=== PATIENT | male | born 1945 | race Caucasian/White ===

== ENCOUNTER 2019-05-29 11:20 | Emergency (ER) | payer OTHER, SELFPAY ==
[2019-05-29 11:28] VITALS: BP 171/95; PULSE 79; RESP 96; TEMP 36.5; O2SAT 96
--- NOTE | 2019-05-29 11:41 | ED.GIBLEED ---
HPI - GI Bleed <SHEKHAR Jimenez - Last Filed: 05/30/19 01:24> General Chief complaint: GI Bleed Stated complaint: dark stools,discomfort Time Seen by Provider: 05/29/19 11:20 Source: patient Mode of arrival: ambulatory Limitations: no limitations History of Present Illness HPI Narrative: This is a pleasant 74-year-old gentleman, previous smoker, presents to ED with chief complain of dark orders to which started last night with bowel movement. He had another dark bowel movement this morning as well. He reports some rectal discomfort, decreased appetite for several days, mild nausea last night. He denies taking anticoagulants, and NSAIDS. He denies history of gastric ulcer, hemorrhoids, liver problem, esophageal varices. He denies abdominal pain, chest pain, increasing short of breath from baseline, dizziness, fever, chills, vomiting. He also reports bilateral lower leg muscle discomfort worse on right side and heel pain. The pain worse when he is resting or sitting on a chair for more than 1 hour or so and improves with walking around. The foot pain is worse in the morning when he starts ambulating. Denies history of plantar fasciitis or heel spurs. He wears a good pair of supportive shoes with inserts. He also reports L index distal finger pain, redness, warmth. He had injured 2 days ago when he was working with a drill and slipped and drilled the ulnar aspect of distal 2nd phalange near the nail. . Related Data Home Medications Medication Instructions Recorded Confirmed Cbd Tincture 1 dose MISCELLANEOUS DIRECTED 05/29/19 05/29/19 albuterol sulfate [Proventil HFA] 1 puff INH Q4HP PRN 05/29/19 05/29/19 epinephrine [EpiPen] 0.3 mg IM PRN PRN 05/29/19 05/29/19 fluticasone propionate [Flonase 2 spray INTRANASAL DAILY PRN 05/29/19 05/29/19 Allergy Relief] tiotropium-olodaterol [Stiolto 2 puff INHALATION DAILY 05/29/19 05/29/19 Respimat] Previous Rx's Medication Instructions Recorded doxycycline hyclate 100 mg PO BID 7 Days #14 tab 05/29/19 Allergies Allergy/AdvReac Type Severity Reaction Status Date / Time venom-wasp protein Allergy Severe LOCAL Unverified 01/29/18 13:07 [WASP VENOM PROTEIN] SWELLING, HIVES chlorpheniramine Allergy Unknown TACHYCARDIA Unverified 01/29/18 13:07 [From TUSSIONEX] ,HYPOTENSIO N hydrocodone [From TUSSIONEX] Allergy Unknown TACHYCARDIA Unverified 01/29/18 13:07 ,HYPOTENSIO N salmeterol [SALMETEROL] AdvReac Intermediate TACHYCARDIA Unverified 01/29/18 13:07 venlafaxine [VENLAFAXINE] AdvReac Intermediate DIZZY, Unverified 01/29/18 13:07 TINNITIS duloxetine [DULOXETINE] AdvReac Mild NAUSEA Unverified 01/29/18 13:07 ibuprofen [IBUPROFEN] AdvReac Mild REBOUND Unverified 01/29/18 13:07 HEADACHES zolpidem [From AMBIEN] AdvReac Unknown I FORGOT Unverified 01/29/18 13:07 WHO I WAS. CAT DANDER Allergy Intermediate SNEEZING, Uncoded 01/29/18 13:07 ITCHY EYES Review of Systems <SHEKHAR Jimenez - Last Filed: 05/30/19 01:24> Review of Systems General: Denies fever, chills, fatigue, malaise, sweats. HEENT: Denies sinus pain, ear pain, sore throat, difficulty swallowing, dizziness. Respiratory: Reports history of COPD, no increasing short of breath. Denies dyspnea, cough, wheezing, hemoptysis, sputum. Cardiovascular: Denies chest pain, palpitations, orthopnea, edema. Gastrointestinal: See HPI : Denies dysuria, frequency, incontinence, hematuria, urinary retention. Musculoskeletal: See HPI Skin: Denies rash, skin lesions, or other. Neurologic: Denies weakness, headache, numbness, change in speech, confusion, seizures, incoordination. Psychiatric: No concerning psychosocial issues. 12-point review of systems is negative except for those stated above. PFSH <SHEKHAR Jimenez - Last Filed: 05/30/19 01:24> Medical History (Updated 05/29/19 @ 13:41 by SHEKHAR Jimenez) COPD (chronic obstructive pulmonary disease) (Acute) History of lung cancer (Chronic) Surgical History (Updated 05/29/19 @ 11:50 by SHEKHAR Jimenez) S/P lobectomy of lung (Resolved) Family History Father Heart disease Hypertension Mental health problem COPD (chronic obstructive pulmonary disease) Mother Hypertension Sister Mental health problem COPD (chronic obstructive pulmonary disease) Social History Smoking Status: Former smoker Family History Father Heart disease Hypertension Mental health problem COPD (chronic obstructive pulmonary disease) Mother Hypertension Sister Mental health problem COPD (chronic obstructive pulmonary disease) Social History Smoking Status: Former smoker Exam <SHEKHAR Jimenez - Last Filed: 05/30/19 01:24> Narrative Exam Narrative: GEN: Alert, oriented x 3, well appearing and nourished, and in no acute distress. Head: Normal cephalic, atraumatic. No scalp or temporal tenderness, palpable mass or rash. EYES: Pupils are equal, round, and reactive to light and accommodation. Extraocular muscles are intact bilaterally. There is no subconjunctival hemorrhage, exudate and sclera non-icteric. ENT: Bilateral auditory canals and tympanic membranes. Hearing grossly intact. Nose without bleeding, purulent discharge, septal hematoma or deviation. R turbinate with erythema and swelling. Facial sinuses nontender to palpate. Mucous membrane moist, no mucosal lesion. Throat without erythema, tonsillar hypertrophy or exudate. Uvula in midline, airway patent. Neck: Trachea in midline. No JVD, non-tender without lymphadenopathy. No masses or thyroid megaly. Supple, non-tender and no meningeal signs. CARDIAC: Normal regular rate and rhythm without murmurs, gallops, or rubs. No chest wall tenderness. No peripheral edema, cyanosis or pallor. Capillary refill is less than 2 seconds. RESPIRATORY: Lungs are cleat to auscultate bilaterally. No cough, wheezes, rales, or rhonchi. No stridor, respiratory distress, increase work of breathing, or accessary muscle used. ABD: Abdomen soft, nontender and non-distended, obese. No guarding or rebound tenderness to palpate. Bowel sounds are normal in all 4 quadrants. There is no palpable masses or organomegaly. EXT: Full painless ROM of all extremities with no loss of sensation, strength, effusion or edema. SKIN: Warm, dry, normal color for patient. No erythema, lesions or rash. BACK: Nontender without deformity or crepitance. No flank tenderness. NEUROLOGICAL: Alert and oriented to place, time and person. Sensation and motor function intact bilaterally. No facial droops, dysphasia. PSYCHIATRIC: Good judgement and reason, without hallucinations, abnormal affect or abnormal behaviors during the examination. Patient is not suicidal. Initial Vital Signs Initial Vital Signs: Vital Signs Temperature 97.7 F 05/29/19 11:28 Pulse Rate 79 05/29/19 11:28 Respiratory Rate 96 H 05/29/19 11:28 Blood Pressure 171/95 H 05/29/19 11:28 Pulse Oximetry 96 05/29/19 11:28 GI Inspection: normal to inspection Palpation: soft, No guarding, No mass, No rigid and No tender Auscultation: normal bowel sounds Rectal Exam: visual inspection normal, normal sphincter tone, prostate normal, No abnormal stool, No fissure, heme negative stool, No hemorrhoids, No laceration, No mass and tenderness Extrem Left upper extremity: hand (index finger) Details: abnormal to inspection, normal capillary refill, tenderness, warmth Location: of the 2nd digit Location: at the distal phalanx, abrasion Location: of the 2nd digit (erythema, warmth, edeam) Location: at the distal phalanx and on the dorsal aspect and other Right lower extremity: normal to inspection, full ROM, lower leg and foot Details: normal to inspection, vascular exam and tendon exam; no tenderness, ROM of toes abnormal and no edema; no edema and joint enlargement noted Left lower extremity: normal to inspection, full ROM, lower leg and foot Details: vascular exam, tendon exam and motor-sensory exam; no tenderness, no unusual warmth and no edema; no edema and joint enlargement noted <Cooper Onofre DO - Last Filed: 05/31/19 06:33> Initial Vital Signs Initial Vital Signs: Vital Signs Temperature 97.7 F 05/29/19 11:28 Pulse Rate 79 05/29/19 11:28 Respiratory Rate 96 H 05/29/19 11:28 Blood Pressure 171/95 H 05/29/19 11:28 Pulse Oximetry 96 05/29/19 11:28 Course <SHEKHAR Jimenez - Last Filed: 05/30/19 01:24> Orders Ordered: Discontinued Medications Sodium Chloride (Normal Saline 0.9%) 1,000 mls @ 150 mls/hr IV CONT REYNALDO Last Admin: 05/29/19 11:51 Dose: 150 mls/hr Vital Signs - 8 hr 05/29/19 11:28 05/29/19 12:38 Temperature 97.7 F Pulse Rate 79 72 Respiratory Rate 96 H 18 Blood Pressure 171/95 H Blood Pressure [Left Arm] 137/91 H Pulse Oximetry 96 97 <Cooper Onofre DO - Last Filed: 05/31/19 06:33> Orders Ordered: Discontinued Medications Sodium Chloride (Normal Saline 0.9%) 1,000 mls @ 150 mls/hr IV CONT REYNALDO Last Admin: 05/29/19 11:51 Dose: 150 mls/hr Vital Signs - 8 hr 05/29/19 11:28 05/29/19 12:38 Temperature 97.7 F Pulse Rate 79 72 Respiratory Rate 96 H 18 Blood Pressure 171/95 H Blood Pressure [Left Arm] 137/91 H Pulse Oximetry 96 97 MDM - GI Bleed <SHEKHAR Jimenez - Last Filed: 05/30/19 01:24> Differential Diagnosis Likely hemorrhoids, gastritis, Upper gastrointestinal hemorrhage, melena, anal fissure and other (Plantar facititis, foot strain, heel spur pain, finger fracture, finger cellulitis, finger foreign body) Medical Records Attestation: I reviewed the patient's medical records. Lab Data Attestation: I reviewed the patient's lab results. Result diagrams: 05/29/19 11:46 05/29/19 11:46 Lab Results 05/29/19 05/29/19 05/29/19 Range/Units 11:46 11:46 11:46 WBC 8.8 (4.5-11.0) X10^3/uL RBC 4.73 (4.5-5.9) X10^6/uL Hgb 15.5 (13.5-17.5) g/dL Hct 44.2 (41-53) % MCV 93.6 (80-100) fL MCH 32.8 (26-34) PG MCHC 35.0 (30-36) % RDW 13.1 (11.6-14.8) % Plt Count 256 (150-400) X10^3/uL Neut % (Auto) 70.9 (50-75) % Lymph % (Auto) 18.1 L (25-40) % Tucker % (Auto) 9.1 (3-14) % Eos % (Auto) 0.8 L (2-4) % Baso % (Auto) 1.1 (0-2) % Neut # (Auto) 6200 (7856-0635) /uL Lymph # (Auto) 1600 (6097-4249) /uL Tucker # (Auto) 800 (0-900) /uL Eos # (Auto) 100 (0-450) /uL Baso # (Auto) 100 (0-100) /uL PT 12.1 (10.1-12.7) SECONDS INR 1.1 (0.9-1.3) APTT 34 (26.4-36.2) SECONDS Sodium 138 (137-145) mmol/L Potassium 4.6 (3.4-5.1) mmol/L Chloride 104 (98-107) mmol/L Carbon Dioxide 25 (22-32) mmol/L BUN 13 (9-20) mg/dL Creatinine 1.00 (0.66-1.25) mg/dL Estimated GFR > 60.0 (>60) mL/min BUN/Creatinine Ratio 13.0 (6-22) Glucose 102 (80-110) mg/dL Calcium 9.4 (8.4-10.2) mg/dL Total Bilirubin 0.7 (0.2-1.3) mg/dL AST 36 (17-59) IU/L ALT 23 (21-72) IU/L Alkaline Phosphatase 72 (38-126) U/L Total Creatine Kinase 135 (55-170) U/L Total Protein 7.2 (6.3-8.2) g/dL Albumin 4.2 (3.5-5.0) g/dL Globulin 3.0 (1.7-4.1) g/dL Albumin/Globulin Ratio 1.4 (1.0-2.8) Blood Type Antibody Screen 08/09/19 Range/Units 11:46 WBC (4.5-11.0) X10^3/uL RBC (4.5-5.9) X10^6/uL Hgb (13.5-17.5) g/dL Hct (41-53) % MCV (80-100) fL MCH (26-34) PG MCHC (30-36) % RDW (11.6-14.8) % Plt Count (150-400) X10^3/uL Neut % (Auto) (50-75) % Lymph % (Auto) (25-40) % Tucker % (Auto) (3-14) % Eos % (Auto) (2-4) % Baso % (Auto) (0-2) % Neut # (Auto) (0159-4424) /uL Lymph # (Auto) (3280-8149) /uL Tucker # (Auto) (0-900) /uL Eos # (Auto) (0-450) /uL Baso # (Auto) (0-100) /uL PT (10.1-12.7) SECONDS INR (0.9-1.3) APTT (26.4-36.2) SECONDS Sodium (137-145) mmol/L Potassium (3.4-5.1) mmol/L Chloride (98-107) mmol/L Carbon Dioxide (22-32) mmol/L BUN (9-20) mg/dL Creatinine (0.66-1.25) mg/dL Estimated GFR (>60) mL/min BUN/Creatinine Ratio (6-22) Glucose (80-110) mg/dL Calcium (8.4-10.2) mg/dL Total Bilirubin (0.2-1.3) mg/dL AST (17-59) IU/L ALT (21-72) IU/L Alkaline Phosphatase (38-126) U/L Total Creatine Kinase (55-170) U/L Total Protein (6.3-8.2) g/dL Albumin (3.5-5.0) g/dL Globulin (1.7-4.1) g/dL Albumin/Globulin Ratio (1.0-2.8) Blood Type O Positive Antibody Screen Negative Point of Care Testing Stool Occult Blood Negative Imaging Data XR-L finger: Radiologist's impression: [address] [address] XRay Report Signed Patient: Uli Silverio [facility]#: [id number] : 5Acct:[id number] Age/Sex: 74 / MDate of Service: 05/29/19 Loc: ED Accession Number: [id number] Procedure: XR finger LT min 2V Ordering Provider: Nghia Ventura PROCEDURE: XR FINGER LT MIN 2V INDICATIONS: L 2nd distal figner injury with a drill, c/o pain, swelling TECHNIQUE: AP hand, 2 views of the second finger(s) acquired. COMPARISON: None. FINDINGS: Bones: No fractures or dislocations. No suspicious bony lesions. Osteophytic changes are noted in left thumb multiple prominent at first CMC joint. Soft tissues: No suspicious soft tissue calcifications. No radiopaque foreign body is seen IMPRESSION: No acute second digit fracture or dislocation. No radiopaque foreign body. Dictated by: David Montes M.D. on 05/29/2019 at 11:52 Approved by: David Montes M.D. on 05/29/2019 at 11:53 XR-R foot: Radiologist's impression: [address] [address] XRay Report Signed Patient: Uli Silverio [facility]#: [id number] : 5Acct:[id number] Age/Sex: 74 / MDate of Service: 05/29/19 Loc: ED Accession Number: [id number] Procedure: XR foot RT min 3V Ordering Provider: Nghia Ventura PROCEDURE: XR FOOT RT MIN 3V INDICATIONS: R foot/heel pain, not recalling an injury TECHNIQUE: 3 views of the foot were acquired. COMPARISON: None. 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 A well-defined plantar and dorsal calcaneal enthesophytes are noted. No fractures or dislocations. No suspicious bony lesions. Soft tissues: No tibiotalar joint effusion. Achilles tendon appears normal. IMPRESSION: No acute right foot fracture or dislocation. Well-defined plantar and dorsal calcaneal enthesophytes. Dictated by: David Montes M.D. on 05/29/2019 at 11:54 Approved by: David Montes M.D. on 05/29/2019 at 11:55 MDM Narrative Medical decision making narrative: This is a pleasant 74 year gentleman presents to ED with 2 episodes of dark stool with rectal discomfort which started last night. The patient denied any constitutional symptoms or chest pain, short of breath, dizziness, abdominal pain, history of hemorrhoids. The patient is not taking anticoagulants or antiplatelets at this time. Patient denies taking recent Pepto-Bismol or NSAIDS regularly. His CBC, chemistry, coagulation were all unremarkable. His physical exam for abdomen was benign. Hemoccult test was negative and there was no external hemorrhoids visualized, no internal hemorrhoids palpated. He also complain of bilateral muscle pain which is worse on the right leg in lower extremities and left heel pain. The patient reports pain aggravates with a resting or sitting prolonged time and gets better with ambulation. He denies taking statin at this time. He had good circulation to his bilateral foot, no obvious deformity noted, skin felt warm and dry, and hit the sensation was intact. CK test was ordered and which was negative. X-ray test shows no acute fractures, dislocation, tibialtarlar joint effusion. It showed well defined plantar and dorsal calcaneal enthesophytes. Given patient's history and x-ray test, patient was advised to use ice with pain, when when he gets out of bed and forced , and to take [id number] Tylenol and/or Motrin as needed. He injury his left 2nd distal finger while he was using a drill 2 days ago. He reports increasing pain, redness, warmth, swelling on affected site. X-ray test shows no acute 2nd digit fracture, dislocation, foreign body. The patient is being treated for cellulitis with Keflex. Discussed return precautions such as dark tarry stool, bright red rectal bleeding, chest pain, dizziness, breathing trouble, abdominal pain, nausea/vomiting, vomiting blood, signs and symptoms for infection after a couple of doses of antibiotic medication. The patient verbalized the understanding no further questions expressed. He agrees with the treatment plan and to follow with the primary care doctor in 2-3 days for re-evaluation. <Cooper Onofre DO - Last Filed: 05/31/19 06:33> Lab Data Lab Results 05/29/19 05/29/19 05/29/19 Range/Units 11:46 11:46 11:46 WBC 8.8 (4.5-11.0) X10^3/uL RBC 4.73 (4.5-5.9) X10^6/uL Hgb 15.5 (13.5-17.5) g/dL Hct 44.2 (41-53) % MCV 93.6 (80-100) fL MCH 32.8 (26-34) PG MCHC 35.0 (30-36) % RDW 13.1 (11.6-14.8) % Plt Count 256 (150-400) X10^3/uL Neut % (Auto) 70.9 (50-75) % Lymph % (Auto) 18.1 L (25-40) % Tucker % (Auto) 9.1 (3-14) % Eos % (Auto) 0.8 L (2-4) % Baso % (Auto) 1.1 (0-2) % Neut # (Auto) 6200 (2854-7648) /uL Lymph # (Auto) 1600 (5076-6036) /uL Tucker # (Auto) 800 (0-900) /uL Eos # (Auto) 100 (0-450) /uL Baso # (Auto) 100 (0-100) /uL PT 12.1 (10.1-12.7) SECONDS INR 1.1 (0.9-1.3) APTT 34 (26.4-36.2) SECONDS Sodium 138 (137-145) mmol/L Potassium 4.6 (3.4-5.1) mmol/L Chloride 104 (98-107) mmol/L Carbon Dioxide 25 (22-32) mmol/L BUN 13 (9-20) mg/dL Creatinine 1.00 (0.66-1.25) mg/dL Estimated GFR > 60.0 (>60) mL/min BUN/Creatinine Ratio 13.0 (6-22) Glucose 102 (80-110) mg/dL Calcium 9.4 (8.4-10.2) mg/dL Total Bilirubin 0.7 (0.2-1.3) mg/dL AST 36 (17-59) IU/L ALT 23 (21-72) IU/L Alkaline Phosphatase 72 (38-126) U/L Total Creatine Kinase 135 (55-170) U/L Total Protein 7.2 (6.3-8.2) g/dL Albumin 4.2 (3.5-5.0) g/dL Globulin 3.0 (1.7-4.1) g/dL Albumin/Globulin Ratio 1.4 (1.0-2.8) Blood Type Antibody Screen 05/29/19 Range/Units 11:46 WBC (4.5-11.0) X10^3/uL RBC (4.5-5.9) X10^6/uL Hgb (13.5-17.5) g/dL Hct (41-53) % MCV (80-100) fL MCH (26-34) PG MCHC (30-36) % RDW (11.6-14.8) % Plt Count (150-400) X10^3/uL Neut % (Auto) (50-75) % Lymph % (Auto) (25-40) % Tucker % (Auto) (3-14) % Eos % (Auto) (2-4) % Baso % (Auto) (0-2) % Neut # (Auto) (1226-0616) /uL Lymph # (Auto) (0412-3930) /uL Tucker # (Auto) (0-900) /uL Eos # (Auto) (0-450) /uL Baso # (Auto) (0-100) /uL PT (10.1-12.7) SECONDS INR (0.9-1.3) APTT (26.4-36.2) SECONDS Sodium (137-145) mmol/L Potassium (3.4-5.1) mmol/L Chloride (98-107) mmol/L Carbon Dioxide (22-32) mmol/L BUN (9-20) mg/dL Creatinine (0.66-1.25) mg/dL Estimated GFR (>60) mL/min BUN/Creatinine Ratio (6-22) Glucose (80-110) mg/dL Calcium (8.4-10.2) mg/dL Total Bilirubin (0.2-1.3) mg/dL AST (17-59) IU/L ALT (21-72) IU/L Alkaline Phosphatase (38-126) U/L Total Creatine Kinase (55-170) U/L Total Protein (6.3-8.2) g/dL Albumin (3.5-5.0) g/dL Globulin (1.7-4.1) g/dL Albumin/Globulin Ratio (1.0-2.8) Blood Type O Positive Antibody Screen Negative Point of Care Testing Stool Occult Blood Negative Discharge Plan Departure Patient Disposition: Home Clinical Impression: Rectal discomfort, Bilateral leg pain Cellulitis Qualifiers: Site of cellulitis: extremity Site of cellulitis of extremity: finger Laterality: left Qualified Code(s): L03.012 - Cellulitis of left finger Discharge Date/Time: 05/29/19 14:02 Interventions: ED Discharge Assessment Last Done: 05/29/19 14:02 Instructions: DI for Cellulitis -- Adult, DI for Plantar Fasciitis, Gastrointestinal Bleeding Activity Restrictions/Additional Instructions: You have been diagnosed with [cellulitis in your finger, possibly plantar fasciitis, rectal discomfort. You're blood test today does not indicate there is a big blood loss, you're chemistry looks good including CK for muscle pain. You're occult of fecal test was negative. You're physical exam under abdomen and rectal were unremarkable. You're left index finger appears to be having on early infection. You will be treated with antibiotic medications for 7 days. Try roll your R foot on ice bottle when you wake up and before you start your day for discomfort]. What to do: *Take your medications as directed. Doxycycline medication prescription has been transmitted to Marcus Oconnell at [place]. Please complete a course unless this give she will allergic reaction. He could take Tylenol and or ibuprofen for discomfort in her foot/leg. *Follow up with your primary care provider in 2-3 days, call for an appointment. Let them know you were seen in the ED and that we asked you to be seen in follow up. *Return to ED if you have any new, worsening, or concerning symptoms, such as increasing dark tarry stool, bright red rectal bleeding, abdominal pain, chest pain, breathing difficulty, unable to tolerate fluid, feeling dizzy or fainting. If you're finger gets worse with pain, swelling, redness, unable to move, tingling numbness, fever, chills. If your legs get swollen, red, tingling numb, severe pain, fever/chills. I added information for GI bleed with this discharge instruction was to watch for at home, however, does not appears to be you are having a rectal or GI bleed at this time]. Prescriptions: New doxycycline hyclate 100 mg tablet 100 mg PO BID 7 Days Qty: 14 RF: 0 No Action epinephrine [EpiPen] 0.3 mg/0.3 mL Auto-Injector 0.3 mg IM PRN PRN (Reason: Allergic Reaction) RF: 0 Stiolto Respimat 2.5-2.5 mcg/actuation Mist 2 puff inhalation DAILY RF: 0 Cbd Tincture 1 dose miscellaneous DIRECTED RF: 0 albuterol sulfate [Proventil HFA] 90 MCG/PUFF HFA aerosol inhaler 1 puff INH Q4HP PRN (Reason: Shortness Of Breath) RF: 0 fluticasone propionate [Flonase Allergy Relief] 9.9 ML spray,suspension 2 spray Intranasal DAILY PRN (Reason: Allergy Symptoms) RF: 0 Referrals: Jordy Landry MD [Primary Care Provider] - <Cooper Onofre DO - Last Filed: 05/31/19 06:33> Cosign ED Attending Cosignature Attestation: I was immediately available in the department for consultation. Documentation has been reviewed. I agree with assessment and plan.
[2019-05-29] MEDS: SODIUM CHLORIDE 0.9% 1,000 ML 150 ML IV (11:51)
--- NOTE | 2019-05-29 11:54 | ED_ITS ---
HPI - GI Bleed <SHEKHAR Jimenez - Last Filed: 05/30/19 01:24> General Chief complaint: GI Bleed Stated complaint: dark stools,discomfort Time Seen by Provider: 05/29/19 11:20 Source: patient Mode of arrival: ambulatory Limitations: no limitations History of Present Illness HPI Narrative: This is a pleasant 74-year-old gentleman, previous smoker, presents to ED with chief complain of dark orders to which started last night with bowel movement. He had another dark bowel movement this morning as well. He reports some rectal discomfort, decreased appetite for several days, mild na usea last night. He denies taking anticoagulants, and NSAIDS. He denies history of gastric ulcer, hemorrhoids, liver problem, esophageal varices. He denies abdominal pain, chest pain, increasing short of breath from baseline, dizziness, fever, chills, vomiting. He also reports bilateral lower leg muscle discomfort worse on right side and heel pain. The pain worse when he is resting or sitting on a chair for more than 1 hour or so and improves with walking around. The foot pain is worse in the morning when he starts ambulating. Denies history of plantar fasciitis or heel spurs. He wears a good pair of supportive shoes with inserts. He also reports L index distal finger pain, redness, warmth. He had injured 2 days ago when he was working with a drill and slipped and drilled the ulnar aspect of distal 2nd phalange near the nail. . Related Data Home Medications Medication Instructions Recorded Confirmed Cbd Tincture 1 dose MISCELLANEOUS DIRECTED 05/29/19 05/29/19 albuterol sulfate [Proventil HFA] 1 puff INH Q4HP PRN 05/29/19 05/29/19 epinephrine [EpiPen] 0.3 mg IM PRN PRN 05/29/19 05/29/19 fluticasone propionate [Flonase 2 spray INTRANASAL DAILY PRN 05/29/19 05/29/19 Allergy Relief] tiotropium-olodaterol [Stiolto 2 puff INHALATION DAILY 05/29/19 05/29/19 Respimat] Previous Rx's Medication Instructions Recorded doxycycline hyclate 100 mg PO BID 7 Days #14 tab 05/29/19 Allergies Allergy/AdvReac Type Severity Reaction Status Date / Time venom-wasp protein Allergy Severe LOCAL Unverified 01/29/18 13:07 [WASP VENOM PROTEIN] SWELLING, HIVES chlorpheniramine Allergy Unknown TACHYCARDIA Unverified 01/29/18 13:07 [From TUSSIONEX] ,HYPOTENSIO N hydrocodone [From TUSSIONEX] Allergy Unknown TACHYCARDIA Unverified 01/29/18 13:07 ,HYPOTENSIO N salmeterol [SALMETEROL] AdvReac Intermediate TACHYCARDIA Unverified 01/29/18 13:07 venlafaxine [VENLAFAXINE] AdvReac Intermediate DIZZY, Unverified 01/29/18 13:07 TINNITIS duloxetine [DULOXETINE] AdvReac Mild NAUSEA Unverified 01/29/18 13:07 ibuprofen [IBUPROFEN] AdvReac Mild REBOUND Unverified 01/29/18 13:07 HEADACHES zolpidem [From AMBIEN] AdvReac Unknown I FORGOT Unverified 01/29/18 13:07 WHO I WAS. CAT DANDER Allergy Intermediate SNEEZING, Uncoded 01/29/18 13:07 ITCHY EYES Review of Systems <SHEKHAR Jimenez - Last Filed: 05/30/19 01:24> Review of Systems General: Denies fever, chills, fatigue, malaise, sweats. HEENT: Denies sinus pain, ear pain, sore throat, difficulty swallowing, dizziness. Respiratory: Reports history of COPD, no increasing short of breath. Denies d yspnea, cough, wheezing, hemoptysis, sputum. Cardiovascular: Denies chest pain, palpitations, orthopnea, edema. Gastrointestinal: See HPI : Denies dysuria, frequency, incontinence, hematuria, urinary retention. Musculoskeletal: See HPI Skin: Denies rash, skin lesions, or other. Neurologic: Denies weakness, headache, numbness, change in speech, confusion, seizures, incoordination. Psychiatric: No concerning psychosocial issues. 12-point review of systems is negative except for those stated above. PFSH <SHEKHAR Jimenez - Last Filed: 05/30/19 01:24> Medical History (Updated 05/29/19 @ 13:41 by SHEKHAR Jimenez) COPD (chronic obstructive pulmonary disease) (Acute) History of lung cancer (Chronic) Surgical History (Updated 05/29/19 @ 11:50 by SHEKHAR Jimenez) S/P lobectomy of lung (Resolved) Family History Father Heart disease Hypertension Mental health problem COPD (chronic obstructive pulmonary disease) Mother Hypertension Sister Mental health problem COPD (chronic obstructive pulmonary disease) Social History Smoking Status: Former smoker Family History Father Heart disease Hypertension Mental health problem COPD (chronic obstructive pulmonary disease) Mother Hypertension Sister Mental health problem COPD (chronic obstructive pulmonary disease) Social History Smoking Status: Former smoker Exam <SHEKHAR Jimenez - Last Filed: 05/30/19 01:24> Narrative Exam Narrative: GEN: Alert, oriented x 3, well appearing and nourished, and in no acute distress. Head: Normal cephalic, atraumatic. No scalp or temporal tenderness, palpable ma ss or rash. EYES: Pupils are equal, round, and reactive to light and accommodation. Extraocular muscles are intact bilaterally. There is no subconjunctival hemorrhage, exudate and sclera non-icteric. ENT: Bilateral auditory canals and tympanic membranes. Hearing grossly intact. Nose without bleeding, purulent discharge, septal hematoma or deviation. R turbinate with erythema and swelling. Facial sinuses nontender to palpate. Mucous membrane moist, no mucosal lesion. Throat without erythema, tonsillar hypertrophy or exudate. Uvula in midline, airway patent. Neck: Trachea in midline. No JVD, non-tender without lymphadenopathy. No masses or thyroid megaly. Supple, non-tender and no meningeal signs. CARDIAC: Normal regular rate and rhythm without murmurs, gallops, or rubs. No chest wall tenderness. No peripheral edema, cyanosis or pallor. Capillary refill is less than 2 seconds. RESPIRATORY: Lungs are cleat to auscultate bilaterally. No cough, wheezes, rales, or rhonchi. No stridor, respiratory distress, increase work of breathing, or accessary muscle used. ABD: Abdomen soft, nontender and non-distended, obese. No guarding or rebound tenderness to palpate. Bowel sounds are normal in all 4 quadrants. There is no palpable masses or organomegaly. EXT: Full painless ROM of all extremities with no loss of sensation, strength, effusion or edema. SKIN: Warm, dry, normal color for patient. No erythema, lesions or rash. BACK: Nontender without deformity or crepitance. No flank tenderness. NEUROLOGICAL: Alert and oriented to place, time and person. Sensation and motor function intact bilaterally. No facial droops, dysphasia. PSYCHIATRIC: Good judgement and reason, without hallucinations, abnormal affect or abnormal behaviors during the examination. Patient is not suicidal. Initial Vital Signs Initial Vital Signs: Vital Signs Temperature 97.7 F 05/29/19 11:28 Pulse Rate 79 05/29/19 11:28 Respiratory Rate 96 H 05/29/19 11:28 Blood Pressure 171/95 H 05/29/19 11:28 Pulse Oximetry 96 05/29/19 11:28 GI Inspection: normal to inspection Palpation: soft, No guarding, No mass, No rigid and No tender Auscultation: normal bowel sounds Rectal Exam: visual inspection normal, normal sphincter tone, prostate normal, No abnormal stool, No fissure, heme negative stool, No hemorrhoids, No laceration, No mass and tenderness Extrem Left upper extremity: hand (index finger) Details: abnormal to inspection, nor mal capillary refill, tenderness, warmth Location: of the 2nd digit Location: at the distal phalanx, abrasion Location: of the 2nd digit (erythema, warmth, edeam) Location: at the distal phalanx and on the dorsal aspect and other Right lower extremity: normal to inspection, full ROM, lower leg and foot Details: normal to inspection, vascular exam and tendon exam; no tenderness, ROM of toes abnormal and no edema; no edema and joint enlargement noted Left lower extremity: normal to inspection, full ROM, lower leg and foot Details: vascular exam, tendon exam and motor-sensory exam; no tenderness, no unusual warmth and no edema; no edema and joint enlargement noted <Cooper Onofre DO - Last Filed: 05/31/19 06:33> Initial Vital Signs Initial Vital Signs: Vital Signs Temperature 97.7 F 05/29/19 11:28 Pulse Rate 79 05/29/19 11:28 Respiratory Rate 96 H 05/29/19 11:28 Blood Pressure 171/95 H 05/29/19 11:28 Pulse Oximetry 96 05/29/19 11:28 Course <SHEKHAR Jimenez - Last Filed: 05/30/19 01:24> Orders Ordered: Discontinued Medications Sodium Chloride (Normal Saline 0.9%) 1,000 mls @ 150 mls/hr IV CONT REYNALDO Last Admin: 05/29/19 11:51 Dose: 150 mls/hr Vital Signs - 8 hr 05/29/19 11:28 05/29/19 12:38 Temperature 97.7 F Pulse Rate 79 72 Respiratory Rate 96 H 18 Blood Pressure 171/95 H Blood Pressure [Left Arm] 137/91 H Pulse Oximetry 96 97 <Cooper Onofre DO - Last Filed: 05/31/19 06:33> Orders Ordered: Discontinued Medications Sodium Chloride (Normal Saline 0.9%) 1,000 mls @ 150 mls/hr IV CONT REYNALDO Last Admin: 05/29/19 11:51 Dose: 150 mls/hr Vital Signs - 8 hr 05/29/19 11:28 05/29/19 12:38 Temperature 97.7 F Pulse Rate 79 72 Respiratory Rate 96 H 18 Blood Pressure 171/95 H Blood Pressure [Left Arm] 137/91 H Pulse Oximetry 96 97 MDM - GI Bleed <Nghia MorrowSHEKHAR Ramirez - Last Filed: 05/30/19 01:24> Differential Diagnosis Likely hemorrhoids, gastritis, Upper gastrointestinal hemorrhage, melena, anal fissure and other (Plantar facititis, foot strain, heel spur pain, finger fracture, finger cellulitis, finger foreign body) Medical Records Attestation: I reviewed the patient's medical records. Lab Data Attestation: I reviewed the patient's lab results. Result diagrams: 05/29/19 11:46 05/29/19 11:46 Lab Results 05/29/19 05/29/19 05/29/19 Range/Units 11:46 11:46 11:46 WBC 8.8 (4.5-11.0) X10^3/uL RBC 4.73 (4.5-5.9) X10^6/uL Hgb 15.5 (13.5-17.5) g/dL Hct 44.2 (41-53) % MCV 93.6 (80-100) fL MCH 32.8 (26-34) PG MCHC 35.0 (30-36) % RDW 13.1 (11.6-14.8) % Plt Count 256 (150-400) X10^3/uL Neut % (Auto) 70.9 (50-75) % Lymph % (Auto) 18.1 L (25-40) % [place] % (Auto) 9.1 (3-14) % Eos % (Auto) 0.8 L (2-4) % Baso % (Auto) 1.1 (0-2) % Neut # (Auto) 6200 (4496-0310) /uL Lymph # (Auto) 1600 (5634-9677) /uL [place] # (Auto) 800 (0-900) /uL Eos # (Auto) 100 (0-450) /uL Baso # (Auto) 100 (0-100) /uL PT 12.1 (10.1-12.7) SECONDS INR 1.1 (0.9-1.3) APTT 34 (26.4-36.2) SECONDS Sodium 138 (137-145) mmol/L Potassium 4.6 (3.4-5.1) mmol/L Chloride 104 (98-107) mmol/L Carbon Dioxide 25 (22-32) mmol/L BUN 13 (9-20) mg/dL Creatinine 1.00 (0.66-1.25) mg/dL Estimated GFR > 60.0 (>60) mL/min BUN/Creatinine Ratio 13.0 (6-22) Glucose 102 (80-110) mg/dL Calcium 9.4 (8.4-10.2) mg/dL Total Bilirubin 0.7 (0.2-1.3) mg/dL AST 36 (17-59) IU/L ALT 23 (21-72) IU/L Alkaline Phosphatase 72 (38-126) U/L Total Creatine Kinase 135 (55-170) U/L Total Protein 7.2 (6.3-8.2) g/dL Albumin 4.2 (3.5-5.0) g/dL Globulin 3.0 (1.7-4.1) g/dL Albumin/Globulin Ratio 1.4 (1.0-2.8) Blood Type Antibody Screen 05/29/19 Range/Units 11:46 WBC (4.5-11.0) X10^3/uL RBC (4.5-5.9) X10^6/uL Hgb (13.5-17.5) g/dL Hct (41-53) % MCV (80-100) fL MCH (26-34) PG MCHC (30-36) % RDW (11.6-14.8) % Plt Count (150-400) X10^3/uL Neut % (Auto) (50-75) % Lymph % (Auto) (25-40) % Columbia % (Auto) (3-14) % Eos % (Auto) (2-4) % Baso % (Auto) (0-2) % Neut # (Auto) (8450-9900) /uL Lymph # (Auto) (0032-1463) /uL Columbia # (Auto) (0-900) /uL Eos # (Auto) (0-450) /uL Baso # (Auto) (0-100) /uL PT (10.1-12.7) SECONDS INR (0.9-1.3) APTT (26.4-36.2) SECONDS Sodium (137-145) mmol/L Potassium (3.4-5.1) mmol/L Chloride (98-107) mmol/L Carbon Dioxide (22-32) mmol/L BUN (9-20) mg/dL Creatinine (0.66-1.25) mg/dL Estimated GFR (>60) mL/min BUN/Creatinine Ratio (6-22) Glucose (80-110) mg/dL Calcium (8.4-10.2) mg/dL Total Bilirubin (0.2-1.3) mg/dL AST (17-59) IU/L ALT (21-72) IU/L Alkaline Phosphatase (38-126) U/L Total Creatine Kinase (55-170) U/L Total Protein (6.3-8.2) g/dL Albumin (3.5-5.0) g/dL Globulin (1.7-4.1) g/dL Albumin/Globulin Ratio (1.0-2.8) Blood Type O Positive Antibody Screen Negative Point of Care Testing Stool Occult Blood Negative Imaging Data XR-L finger: Radiologist's impression: [address] [address] XRay Report Signed Patient: Uli Silverio [facility]#: [id number] : 5Acct:[id number] Age/Sex: 74 / MDate of Service: 05/29/19 Loc: ED Accession Number: [id number] Procedure: XR finger LT min 2V Ordering Provider: Nghia Ventura PROCEDURE: XR FINGER LT MIN 2V INDICATIONS: L 2nd distal figner injury with a drill, c/o pain, swelling TECHNIQUE: AP hand, 2 views of the second finger(s) acquired. COMPARISON: None. FINDINGS: Bones: No fractures or dislocations. No suspicious bony lesions. Osteophytic changes are noted in left thumb multiple prominent at first CMC joint. Soft tissues: No suspicious soft tissue calcifications. No radiopaque foreign body is seen IMPRESSION: No acute second digit fracture or dislocation. No radiopaque foreign body. Dictated by: David Montes M.D. on 05/29/2019 at 11:52 Approved by: David Montes M.D. on 05/29/2019 at 11:53 XR-R foot: Radiologist's impression: [address] [address] XRay Report Signed Patient: Uli Silverio [facility]#: [id number] : 5Acct:[id number] Age/Sex: 74 / MDate of Service: 05/29/19 Loc: ED Accession Number: [id number] Procedure: XR foot RT min 3V Ordering Provider: Nghia Ventura PROCEDURE: XR FOOT RT MIN 3V INDICATIONS: R foot/heel pain, not recalling an injury TECHNIQUE: 3 views of the foot were acquired. COMPARISON: None. 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 A well-defined plantar and dorsal calcaneal enthesophytes are noted. No fractures or dislocations. No suspicious bony lesions. Soft tissues: No tibiotalar joint effusion. Achilles tendon appears normal. IMPRESSION: No acute right foot fracture or dislocation. Well-defined plantar and dorsal calcaneal enthesophytes. Dictated by: David Montes M.D. on 05/29/2019 at 11:54 Approved by: David Montes M.D. on 05/29/2019 at 11:55 MDM Narrative Medical decision making narrative: This is a pleasant 74 year gentleman presents to ED with 2 episodes of dark stool with rectal discomfort which started last night. The patient denied any constitutional symptoms or chest pain, short of breath, dizziness, abdominal pain, history of hemorrhoids. The patient is not taking anticoagulants or antiplatelets at this time. Patient denies taking recent Pepto-Bismol or NSAIDS regularly. His CBC, chemistry, coagulation were all unremarkable. His physical exam for abdomen was benign. Hemoccult test was negative and there was no external hemorrhoids visualized, no internal hemorrhoids palpated. He also complain of bilateral muscle pain which is worse on the right leg in lower extremities and left heel pain. The patient reports pain aggravates with a resting or sitting prolonged time and gets better with ambulation. He denies taking statin at this time. He had good circulation to his bilateral foot, no obvious deformity noted, skin felt warm and dry, and hit the sensation was intact. CK test was ordered and which was negative. X-ray test shows no acute fractures, dislocation, tibialtarlar joint effusion. It showed well defined plantar and dorsal calcaneal enthesophytes. Given patient's history and x-ray test, patient was advised to use ice with pain, when when he gets out of bed and forced , and to take [id number] Tylenol and/or Motrin as needed. He injury his left 2nd distal finger while he was using a drill 2 days ago. He reports increasing pain, redness, warmth, swelling on affected site. X-ray test shows no acute 2nd digit fracture, dislocation, foreign body. The patient is being treated for cellulitis with Keflex. Discussed return precautions such as dark tarry stool, bright red rectal bleedin g, chest pain, dizziness, breathing trouble, abdominal pain, nausea/vomiting, vomiting blood, signs and symptoms for infection after a couple of doses of antibiotic medication. The patient verbalized the understanding no further questions expressed. He agrees with the treatment plan and to follow with the primary care doctor in 2-3 days for re-evaluation. <Cooper Onofre DO - Last Filed: 05/31/19 06:33> Lab Data Lab Results 05/29/19 05/29/19 05/29/19 Range/Units 11:46 11:46 11:46 WBC 8.8 (4.5-11.0) X10^3/uL RBC 4.73 (4.5-5.9) X10^6/uL Hgb 15.5 (13.5-17.5) g/dL Hct 44.2 (41-53) % MCV 93.6 (80-100) fL MCH 32.8 (26-34) PG MCHC 35.0 (30-36) % RDW 13.1 (11.6-14.8) % Plt Count 256 (150-400) X10^3/uL Neut % (Auto) 70.9 (50-75) % Lymph % (Auto) 18.1 L (25-40) % Columbia % (Auto) 9.1 (3-14) % Eos % (Auto) 0.8 L (2-4) % Baso % (Auto) 1.1 (0-2) % Neut # (Auto) 6200 (4700-2991) /uL Lymph # (Auto) 1600 (6368-9080) /uL Columbia # (Auto) 800 (0-900) /uL Eos # (Auto) 100 (0-450) /uL Baso # (Auto) 100 (0-100) /uL PT 12.1 (10.1-12.7) SECONDS INR 1.1 (0.9-1.3) APTT 34 (26.4-36.2) SECONDS Sodium 138 (137-145) mmol/L Potassium 4.6 (3.4-5.1) mmol/L Chloride 104 (98-107) mmol/L Carbon Dioxide 25 (22-32) mmol/L BUN 13 (9-20) mg/dL Creatinine 1.00 (0.66-1.25) mg/dL Estimated GFR > 60.0 (>60) mL/min BUN/Creatinine Ratio 13.0 (6-22) Glucose 102 (80-110) mg/dL Calcium 9.4 (8.4-10.2) mg/dL Total Bilirubin 0.7 (0.2-1.3) mg/dL AST 36 (17-59) IU/L ALT 23 (21-72) IU/L Alkaline Phosphatase 72 (38-126) U/L Total Creatine Kinase 135 (55-170) U/L Total Protein 7.2 (6.3-8.2) g/dL Albumin 4.2 (3.5-5.0) g/dL Globulin 3.0 (1.7-4.1) g/dL Albumin/Globulin Ratio 1.4 (1.0-2.8) Blood Type Antibody Screen 05/29/19 Range/Units 11:46 WBC (4.5-11.0) X10^3/uL RBC (4.5-5.9) X10^6/uL Hgb (13.5-17.5) g/dL Hct (41-53) % MCV (80-100) fL MCH (26-34) PG MCHC (30-36) % RDW (11.6-14.8) % Plt Count (150-400) X10^3/uL Neut % (Auto) (50-75) % Lymph % (Auto) (25-40) % Columbia % (Auto) (3-14) % Eos % (Auto) (2-4) % Baso % (Auto) (0-2) % Neut # (Auto) (0708-6220) /uL Lymph # (Auto) (5558-5560) /uL Columbia # (Auto) (0-900) /uL Eos # (Auto) (0-450) /uL Baso # (Auto) (0-100) /uL PT (10.1-12.7) SECONDS INR (0.9-1.3) APTT (26.4-36.2) SECONDS Sodium (137-145) mmol/L Potassium (3.4-5.1) mmol/L Chloride (98-107) mmol/L Carbon Dioxide (22-32) mmol/L BUN (9-20) mg/dL Creatinine (0.66-1.25) mg/dL Estimated GFR (>60) mL/min BUN/Creatinine Ratio (6-22) Glucose (80-110) mg/dL Calcium (8.4-10.2) mg/dL Total Bilirubin (0.2-1.3) mg/dL AST (17-59) IU/L ALT (21-72) IU/L Alkaline Phosphatase (38-126) U/L Total Creatine Kinase (55-170) U/L Total Protein (6.3-8.2) g/dL Albumin (3.5-5.0) g/dL Globulin (1.7-4.1) g/dL Albumin/Globulin Ratio (1.0-2.8) Blood Type O Positive Antibody Screen Negative Point of Care Testing Stool Occult Blood Negative Discharge Plan Departure Patient Disposition: Home Clinical Impression: Rectal discomfort, Bilateral leg pain Cellulitis Qualifiers: Site of cellulitis: extremity Site of cellulitis of extremity: finger Laterality: left Qualified Code(s): L03.012 - Cellulitis of left finger Discharge Date/Time: 05/29/19 14:02 Interventions: ED Discharge Assessment Last Done: 05/29/19 14:02 Instructions: DI for Cellulitis -- Adult, DI for Plantar Fasciitis, Gastrointestinal Bleeding Activity Restrictions/Additional Instructions: You have been diagnosed with [cellulitis in your finger, possibly plantar fasciitis, rectal discomfort. You're blood test today does not indicate there is a big blood loss, you're chemistry looks good including CK for muscle pain. You're occult of fecal test was negative. You're physical exam under abdomen and rectal were unremarkable. You're left index finger appears to be having on early infection. You will be treated with antibiotic medications for 7 days. Try roll your R foot on ice bottle when you wake up and before you start your day for discomfort]. What to do: *Take your medications as directed. Doxycycline medication prescription has been transmitted to Marcus Oconnell at [place]. Please complete a course unless this give she will allergic reaction. He could take Tylenol and or ibuprofen for discomfort in her foot/leg. *Follow up with your primary care provider in 2-3 days, call for an appointment. Let them know you were seen in the ED and that we asked you to be seen in follow up. *Return to ED if you have any new, worsening, or concerning symptoms, such as increasing dark tarry stool, bright red rectal bleeding, abdominal pain, chest pain, breathing difficulty, unable to tolerate fluid, feeling dizzy or fainting. If you're finger gets worse with pain, swelling, redness, unable to move, tingling numbness, fever, chills. If your legs get swollen, red, tingling numb, severe pain, fever/chills. I added information for GI bleed with this discharge instruction was to watch for at home, however, does not appears to be you are having a rectal or GI bleed at this time]. Prescriptions: New doxycycline hyclate 100 mg tablet 100 mg PO BID 7 Days Qty: 14 RF: 0 No Action epinephrine [EpiPen] 0.3 mg/0.3 mL Auto-Injector 0.3 mg IM PRN PRN (Reason: Allergic Reaction) RF: 0 Stiolto Respimat 2.5-2.5 mcg/actuation Mist 2 puff inhalation DAILY RF: 0 Cbd Tincture 1 dose miscellaneous DIRECTED RF: 0 albuterol sulfate [Proventil HFA] 90 MCG/PUFF HFA aerosol inhaler 1 puff INH Q4HP PRN (Reason: Shortness Of Breath) RF: 0 fluticasone propionate [Flonase Allergy Relief] 9.9 ML spray,suspension 2 spray Intranasal DAILY PRN (Reason: Allergy Symptoms) RF: 0 Referrals: Jordy Landry MD [Primary Care Provider] - <Cooper Onofre DO - Last Filed: 05/31/19 06:33> Cosign ED Attending Cosignature Attestation: I was immediately available in the department for consultation. Documentation has been reviewed. I agree with assessment and plan.
[2019-05-29 11:59] LABS: Add Manual Diff / Slide Review NO; Basophils Absolute Auto 100 /uL (0-100); Basophils Percent Auto 1.1 % (0-2); Eosinophils Absolute Auto 100 /uL (0-450); Eosinophils Percent Auto 0.8 % (2-4); Hematocrit 44.2 % (41-53); Hemoglobin 15.5 g/dL (13.5-17.5); Lymphocytes Absolute Auto 1600 /uL (1100-4500); Lymphocytes Percent Auto 18.1 % (25-40); Mean Corpuscular Hemoglobin 32.8 PG (26-34); Mean Corpuscular Volume 93.6 fL (80-100); Monocytes Absolute Auto 800 /uL (0-900); Monocytes Percent Auto 9.1 % (3-14); Neutrophils Absolute Auto 6200 /uL (1500-7000); Neutrophils Percent Auto 70.9 % (50-75); Platelet Count 256 X10^3/uL (150-400); Red Blood Cell Count 4.73 X10^6/uL (4.5-5.9); Red Cell Distribution Width 13.1 % (11.6-14.8); White Blood Cell Count 8.8 X10^3/uL (4.5-11.0)
[2019-05-29 12:06] LABS: INR 1.1 (0.9-1.3); Prothrombin Time 12.1 SECONDS (10.1-12.7)
--- NOTE | 2019-05-29 12:06 | PC.NURSE ---
performed by SHEKHAR Agrawal. hemocult negative.
[2019-05-29 12:08] LABS: PTT Partial Thromboplastin Tim 34 SECONDS (26.4-36.2)
--- NOTE | 2019-05-29 12:10 | DI.RAD.S_ITS ---
PROCEDURE: XR FOOT RT MIN 3V INDICATIONS: R foot/heel pain, not recalling an injury TECHNIQUE: 3 views of the foot were acquired. COMPARISON: None. 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 A well-defined plantar and dorsal calcaneal enthesophytes are noted. No fractures or dislocations. No suspicious bony lesions. Soft tissues: No tibiotalar joint effusion. Achilles tendon appears normal. IMPRESSION: No acute right foot fracture or dislocation. Well-defined plantar and dorsal calcaneal enthesophytes. Dictated by: David Montes M.D. on 05/29/2019 at 11:54 Approved by: David Montes M.D. on 05/29/2019 at 11:55
--- NOTE | 2019-05-29 12:10 | DI.RAD.S_ITS ---
PROCEDURE: XR FINGER LT MIN 2V INDICATIONS: L 2nd distal figner injury with a drill, c/o pain, swelling TECHNIQUE: AP hand, 2 views of the second finger(s) acquired. COMPARISON: None. FINDINGS: Bones: No fractures or dislocations. No suspicious bony lesions. Osteophytic changes are noted in left thumb multiple prominent at first CMC joint. Soft tissues: No suspicious soft tissue calcifications. No radiopaque foreign body is seen IMPRESSION: No acute second digit fracture or dislocation. No radiopaque foreign body. Dictated by: David Montes M.D. on 05/29/2019 at 11:52 Approved by: David Montes M.D. on 05/29/2019 at 11:53
[2019-05-29 12:11] LABS: Alanine Aminotransferase 23 IU/L (21-72); Albumin 4.2 g/dL (3.5-5.0); Albumin Globulin Ratio 1.4 (1.0-2.8); Alkaline Phosphatase 72 U/L (38-126); Aspartate Aminotransferase 36 IU/L (17-59); Bilirubin Total 0.7 mg/dL (0.2-1.3); Blood Urea Nitrogen 13 mg/dL (9-20); Calcium 9.4 mg/dL (8.4-10.2); Carbon Dioxide 25 mmol/L (22-32); Chloride 104 mmol/L (98-107); Creatine Kinase 135 U/L (55-170); Estimated Glomerular Filt Rate > 60.0 mL/min (>60); Glucose 102 mg/dL (80-110); Potassium 4.6 mmol/L (3.4-5.1); Sodium 138 mmol/L (137-145); Total Protein 7.2 g/dL (6.3-8.2)
[2019-05-29 12:25] LABS: HEMOLYSIS 109 (0-50)
[2019-05-29 12:38] VITALS: BP 137/91; PULSE 72; RESP 18; O2SAT 97
[2019-05-29 13:00] VITALS: BP 144/85; PULSE 71; RESP 24; O2SAT 95
[2019-05-29 14:02] VITALS: BP 142/86; PULSE 60; RESP 18; O2SAT 95
--- NOTE | 2019-06-05 13:58 | PC.NURSE ---
Addendum entered by Mary Alice Forrest R.N. 06/15/19 16:29: 300cc Normal saline infused from [id number] on 05/29/19. Original Note: Normal Saline 300 cc infused prior to patient being discharged.
== END 2019-05-29 14:02 | disposition home or self-care (01) ==
PROVIDERS: Emergency Provider Nurse Practitioner Family; Family Provider Family Medicine; PCP Family Medicine
DX: K62.89 Other specified diseases of anus and rectum (principal); M79.605 Pain in left leg; M79.604 Pain in right leg; L03.012 Cellulitis of left finger
CPT/HCPCS: 36591; 73140; 73630; 80053; 82272; 82550; 85025; 85610; 85730; 86850; 86900; 86901; 96360; 96361; 99283; 99284

== ENCOUNTER 2019-12-17 09:45 | Outpatient (RCR) | payer OTHER, SELFPAY ==
--- NOTE | 2019-10-12 17:00 | PT.OIE ---
Current Diagnoses Low back pain (10/12/19) Muscle weakness (generalized) (10/12/19) Other symptoms and signs involving the musculoskeletal system (10/12/19) Past Medical History (Last Updated 05/29/19 @ 11:50 by SHEKHAR Jimenez) COPD (chronic obstructive pulmonary disease) (Acute) History of lung cancer (Chronic) Past Surgical History (Last Updated 05/29/19 @ 11:50 by SHEKHAR Jimenez) S/P lobectomy of lung (Resolved) Visit Care Team Role Provider Type Jordy Landry MD Primary Care Provider Physician Specialty: Family Practice Address: [address] [place] [address], [id number] Email: SHEKHAR Cortez Attending Provider Non-Staff Specialty: Nursing Address: [address] [place] [address], [id number] Email: Physical Therapy Initial Evaluation PT-OP-A Visit Information Start: 10/09/19 19:21 Freq: Status: Active Protocol: Document 10/12/19 09:07 LRN (Rec: 10/12/19 09:55 LRN [id number]) Out-Patient Physical Therapy Visit Information Visit Information Visit Type Initial Evaluation Visit Start Time 09:07 Visit Stop Time 09:55 Total Visit Minutes 48 Visit Number 1 Number of SPECIALIST ICU Visits 0 Evaluation Information Evaluation Date 10/12/19 Precautions Precautions R lobectomy COPD Depression PT-OP-B Current Condition Start: 10/09/19 19:21 Freq: Status: Active Protocol: Document 10/12/19 09:07 LRN (Rec: 10/12/19 09:55 LRN [id number]) Current Condition History of Current Condition Onset Date 4 months for low back, 2 weeks for the knee pain. Current Complaints Pain with certain movements and exercise walking and stairs. History of Current Condition Here for back pain. When standing up or getting out of the truck of bending over, gets a catch in the L SIJ that feels like the knees are going to buckle, also for general LBP from activity such as bending and lifting both during and after the activity for a couple weeks. Use of Advil helps take the pain down to baseline of 2/10. Pt also complains of bilateral knee pain that is present with walking or stairs. Losing weight that is helping with plantar fasciitis. Wearing orthotics and compression socks at night. Seeing Chiropractor. Prior Treatments and Tests None Treatment Goals Patient/Caregiver Goals Goal is to get back into shape and decrease general ache and to eliminate the sharp pain in the L Low back. Personal Factors Other Personal Factors That May Effect Chronicity of condition Therapy/Recovery Depression R lobectomy COPD PT-OP-C Subjective Start: 10/09/19 19:21 Freq: Status: Active Protocol: Document 10/12/19 09:07 LRN (Rec: 10/12/19 09:55 LRN [id number]) Patient Questionnaires Oswestry Low Back Index Oswestry Score 18 Oswestry Impairment 1 to 19% Impaired (Score 1-19) OP-PT Pain Assessment Pain Assessment Grid Paper Pain Assessment Grid Completed Yes Location L Low back pain Pain Location Details L SIJ Intensity 9 Description Aching,Sharp,Stabbing Description- Other Avg pain is 6/10, ranges 6-9/ 10 Pain Duration Sharp last a few seconds, dull lasts 30-45 minute Variations/Patterns Initial catch pain of high intensity followed by an ache 30-45' Pain Aggravating Factors Changing Position,ADL's, Bending Pain Alleviating Factors Cold,Heat,Medication Other Pain Alleviating Factors 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 PT-OP-H Neuro Start: 10/09/19 19:21 Freq: Status: Active Protocol: Document 10/12/19 09:07 LRN (Rec: 10/13/19 13:38 LRN [id number]) Sensation Evaluation Gross Sensation Gross Sensation WNL Deep Tendon Reflex & Clonus Assessment Deep Tendon Reflex Left Patellar Deep Tendon Reflex 2+ Normal Right Patellar Deep Tendon Reflex 1+ Diminished Bilateral Achilles Deep Tendon Reflex 0 Absent PT-OP-J Posture/Palpation/Skin Start: 10/09/19 19:21 Freq: Status: Active Protocol: Document 10/12/19 09:07 LRN (Rec: 10/13/19 13:38 LRN [id number]) Posture Evaluation Position Standing Evaluation View All positions Head/C-Spine Posture Forward Head T-Spine Posture Increased Kyphosis Shoulder Posture (L) Elevated Palpation Assessment Location Sacrum Palpation Location R ALA & ILS Palpation Details Prone>HANNA: R ALA posterior > neutral; R BOBBY posterior > neutral PSIS Palpation Location Standing & supine: L PSIS is posterior PT-OP-K Range of Motion Start: 10/09/19 19:21 Freq: Status: Active Protocol: Document 10/12/19 09:07 LRN (Rec: 10/13/19 13:38 LRN [id number]) Lumbar Spine Range of Motion Lumbar Spine Active Degrees Testing Position Standing Flexion 75 Extension 25 Rotation Left 15 Rotation Right 10 Lateral Flexion Left 7 Lateral Flexion Right 13 ROM Limitations Soft Tissue Tightness,Pain PT-OP-L Special Tests Start: 10/09/19 19:21 Freq: Status: Active Protocol: Document 10/12/19 09:07 LRN (Rec: 10/13/19 13:38 LRN [id number]) Special Tests Lumbar Spine Special Tests Straight Leg Raise Test Results negative bilaterally Comments PROM is 80 deg's bilaterally Hip Special Tests BRITTANY Test Results negative bilaterally Comments Joint stiffness PT-OP-M Strength Start: 10/09/19 19:21 Freq: Status: Active Protocol: Document 10/12/19 09:07 LRN (Rec: 10/13/19 13:38 LRN [id number]) Hip Strength Hip Manual Muscle Testing Right Adduction 2 Poor Comments Strength is 5/5 except as indicated above. Left Adduction 1 Trace External Rotation 4 Good Comments Strength is 5/5 except as indicated above. PT-OP-Q Treatments Start: 10/09/19 19:21 Freq: Status: Active Protocol: Document 10/12/19 18:29 LRN (Rec: 10/12/19 18:41 LRN [id number]) Self-Care/Home Management Treatment Education Patient Education Home Exercise Program Activities Self-Care/Home Management Activities Pt educated and reviewed self care mobilization of L innominate. Pt shown self correction of posteriorly rotated L innominate in sitting with isometric hip ext & manually resisted R hip flex. Pt then educated in standing with equal weight bearing to avoid sharp pain. Pt able to demonstrate proper performance of activity w/ verbal cuing. No pain felt on standing. PT-OP-T Assessment and Plan Start: 10/09/19 19:21 Freq: Status: Active Protocol: Document 10/12/19 18:29 LRN (Rec: 10/12/19 18:41 LRN [id number]) Physical Therapy Assessment Rehab Potential Rehabilitation Potential Excellent Evaluation Complexity Number of Personal Factors/Comorbidities 3 or More Number of Body Systems Impaired 4 or More Clinical Presentation at Evaluation Evolving Impairments Impairments Activity Tolerance,Functional Mobility,Gait,Pain,Posture,ROM ,Strength,Transfers Other Impairments Lobectomy of R lung COPD Depression Goals Four Impairment Decreased fitness due to LBP. Short Term Goal (STG) Pt will be able to tolerate aerobic exercise of no less than 10 minutes without onset of L LBP. STG Duration 11/23/19 [employer] Goal (LTG) Pt will be able to tolerate return to an exercise program at home or his local gym, to improve overall health and function. LTG Duration 01/10/20 Three Impairment Decreased core and hip strength (hip AD & L. ER) Short Term Goal (STG) Improve hip strength to no less than 3/5 and core strength with pt able to walk and bend over without sharp LBP. STG Duration 11/23/19 Two Impairment L LBP rated 6/10, limiting function (bending and lifting ability). Short Term Goal (STG) Decrease L LBP to no greater than 3/10. STG Duration 11/23/19 [employer] Goal (LTG) Pt will be able to bend and lift light objects off the floor without pain. LTG Duration 01/10/20 One Impairment Pt lacks an appropriate self care HEP. Longterm Goal (LTG) Pt will be educated in a self care HEP. LTG Duration 01/10/20 Assessment Summary Assessment Pt presents with a L posteriorly rotated innominate and a R rotated sacrum, soft tissue dysfunction of the back with a C-Curve of the lower thoracic and lumbar spine with the apex on the left. He has decreased mobility of the lumbar spine and probably hips . He has decreased strength of the L hip and notable weakness of the bilateral hip AD's. The pt has become deconditioned and is having difficulty starting an exercise program due to his pain. The pt will benefit from skilled physical therapy to improve posture, strength, mobility and function. Physical Therapy Plan Frequency and Duration Frequency of Treatment 2x/Week Plan of Care Start Date 10/12/19 Plan of Care End Date 01/10/20 Therapeutic Interventions Therapeutic Interventions Balance Training,Gait Training ,Home Exercise Program,Joint Mobilizations,Manual Therapy, Neuromuscular Re-education, Self-Care/Home Management,Soft Tissue Mobilization, Therapeutic Activities, Therapeutic Exercises Modalities Cold Pack/Ice Massage,Electric Stimulation,Hot Packs, Ultrasound Next Visit Focus/Plan Next Note Type Treatment Note Next Visit Plan Check hip mobility, f/b JMT for a L posteriorly rotated innominate and R rotated sacrum, end with MH/ES to low back, and neuro reeducation of core stabilization training. Progress towards exercise warm up with mobilization as needed and focus on improving posture, mobility and strength of core/pelvis.
--- NOTE | 2019-10-19 16:50 | PT.OTN ---
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 Current Complaints Pain with certain movements and exercise walking and stairs. History of Current Condition Here for back pain. When standing up or getting out of the truck of bending over, gets a catch in the L SIJ that feels like the knees are going to buckle, also for general LBP from activity such as bending and lifting both during and after the activity for a couple weeks. Use of Advil helps take the pain down to baseline of 2/10. Pt also complains of bilateral knee pain that is present with walking or stairs. Losing weight that is helping with plantar fasciitis. Wearing orthotics and compression socks at night. Seeing Chiropractor. Prior Treatments and Tests None Treatment Goals Patient/Caregiver Goals Goal is to get back into shape and decrease general ache and to eliminate the sharp pain in the L Low back. Personal Factors Other Personal Factors That May Effect Chronicity of condition Therapy/Recovery Depression R lobectomy COPD PT-OP-C Subjective Start: 10/09/19 19:21 Freq: Status: Active Protocol: Document 10/19/19 14:21 LRN (Rec: 10/19/19 16:35 LRN [id number]) OP-PT Subjective Patient Comments Patient Comments Pt having less sharp pains. Reports recently had sharp pain in area of kidney in the front (L side, below ribcage). States he called for ambulance, but by the time they arrived his pain had disappeared. Has had constant ms spasm of L shoulder blade. Reports L knee feels weak going up stairs. PT-OP-H Neuro Start: 10/09/19 19:21 Freq: Status: Active Protocol: Document 10/12/19 09:07 LRN (Rec: 10/13/19 13:38 LRN [id number]) Sensation Evaluation Gross Sensation Gross Sensation WNL Deep Tendon Reflex & Clonus Assessment Deep Tendon Reflex Left Patellar Deep Tendon Reflex 2+ Normal Right Patellar Deep Tendon Reflex 1+ Diminished Bilateral Achilles Deep Tendon Reflex 0 Absent PT-OP-J Posture/Palpation/Skin Start: 10/09/19 19:21 Freq: Status: Active Protocol: Document 10/12/19 09:07 LRN (Rec: 10/13/19 13:38 LRN [id number]) Posture Evaluation Position Standing Evaluation View All positions Head/C-Spine Posture Forward Head T-Spine Posture Increased Kyphosis Shoulder Posture (L) Elevated Palpation Assessment Location Sacrum Palpation Location R ALA & ILS Palpation Details Prone>HANNA: R ALA posterior > neutral; R BOBBY posterior > neutral PSIS Palpation Location Standing & supine: L PSIS is posterior PT-OP-K Range of Motion Start: 10/09/19 19:21 Freq: Status: Active Protocol: Document 10/19/19 14:21 LRN (Rec: 10/19/19 16:36 LRN [id number]) Hip Goniometric Range of Motion Hip Right Passive Testing Position Supine Abduction 40 Internal Rotation 10 External Rotation 75 Left Passive Testing Position Supine Abduction 40 Internal Rotation 10 External Rotation 75 PT-OP-L Special Tests Start: 10/09/19 19:21 Freq: Status: Active Protocol: Document 10/12/19 09:07 LRN (Rec: 10/13/19 13:38 LRN [id number]) Special Tests Lumbar Spine Special Tests Straight Leg Raise Test Results negative bilaterally Comments PROM is 80 deg's bilaterally Hip Special Tests BRITTANY Test Results negative bilaterally Comments Joint stiffness PT-OP-M Strength Start: 10/09/19 19:21 Freq: Status: Active Protocol: Document 10/12/19 09:07 LRN (Rec: 10/13/19 13:38 LRN [id number]) Hip Strength Hip Manual Muscle Testing Right Adduction 2 Poor Comments Strength is 5/5 except as indicated above. Left Adduction 1 Trace External Rotation 4 Good Comments Strength is 5/5 except as indicated above. PT-OP-Q Treatments Start: 10/09/19 19:21 Freq: Status: Active Protocol: Document 10/19/19 14:21 LRN (Rec: 10/19/19 15:03 LRN [id number]) Therapeutic Exercises Supine Exercises Bridging Supine Exercise Name Bridging Hip AB/AD Supine Exercise Name Stretch Side bilateral Comments ROM measurement taken Hip ER Supine Exercise Name Hip ER stretch Side bilateral Comments ROM measurement taken Hip IR Supine Exercise Name Hip IR stretch: holding in IR in supine Side bilateral Comments ROM measurement also taken TA Supine Exercise Name TA contraction using SHHHH, CHESTER , & cough for training Comments Extra time taken for training, not able to get pt to perform properly Sidelying Exercises TA Sidelying Exercise Name TA contraction, with and without concentration on breathing. Side bilateral Comments Extra time for training. Pt not able to hold TA during breathing. Sitting Exercises Sit to Stand Sitting Exercise Name Sit to Stand Reps/Minutes 4x Standing Exercises TA Standing Exercise Name Holding TA with standing posture and initiation of gait . Manual Therapy Treatment Soft Tissue Mobilization Gluteals Body Location L>R Gluteals Mobilization Type Strumming Intensity/Depth Moderate Body Position Prone QL Body Location Bilateral QL Mobilization Type Strumming,Sustained Pressure Intensity/Depth Moderate Body Position Prone Joint Mobilizations Sacrum Joint Sacrum Direction Correcting L rotated sacrum Grade II Body Position Prone Comments MFR correction PT-OP-T Assessment and Plan Start: 10/09/19 19:21 Freq: Status: Active Protocol: Document 10/19/19 14:21 LRN (Rec: 10/19/19 15:03 LRN [id number]) Physical Therapy Assessment Goals Four Impairment Decreased fitness due to LBP. Short Term Goal (STG) Pt will be able to tolerate aerobic exercise of no less than 10 minutes without onset of L LBP. STG Duration 11/23/19 [facility] Goal (LTG) Pt will be able to tolerate return to an exercise program at home or his local gym, to improve overall health and function. LTG Duration 01/10/20 Three Impairment Decreased core and hip strength (hip AD & L. ER) Short Term Goal (STG) Improve hip strength to no less than 3/5 and core strength with pt able to walk and bend over without sharp LBP. STG Duration 11/23/19 Two Impairment L LBP rated 6/10, limiting function (bending and lifting ability). Short Term Goal (STG) Decrease L LBP to no greater than 3/10. STG Duration 11/23/19 [employer] Goal (LTG) Pt will be able to bend and lift light objects off the floor without pain. LTG Duration 01/10/20 One Impairment Pt lacks an appropriate self care HEP. Turnstile Attendant Goal (LTG) Pt will be educated in a self care HEP. LTG Duration 01/10/20 Assessment Summary Assessment Pt pelvis appears symmetrical, slightly long on L after bridging. Pt lacks reflexive TA tightening. Pt not able to hold TA during breathing. Pt lobectomy and COPD limits ability to reflexive hold of TA. No sharp pain with sit to stand and with initial stepping. Physical Therapy Plan Frequency and Duration Frequency of Treatment 2x/Week Plan of Care Start Date 10/12/19 Plan of Care End Date 01/10/20 Next Visit Focus/Plan Next Note Type Treatment Note Next Visit Plan After initial pelvic check and JMT as needed, try ex warm up of ?TM, f/b core stab, STM & modalities (as needed). JMT: innominates or sacrum ( possible L posteriorly rotated innominate and R rotated sacrum); neuro-reeducation of core stabilization training, MH/ES to low back. Focus on improving posture, mobility and strength of core/pelvis.
--- NOTE | 2019-10-22 15:32 | PT.OTN ---
Current Diagnoses Low back pain (10/22/19) Muscle weakness (generalized) (10/22/19) Other symptoms and signs involving the musculoskeletal system (10/22/19) Physical Therapy Treatment Note PT-OP-A Visit Information Start: 10/09/19 19:21 Freq: Status: Active Protocol: Document 10/22/19 13:31 LRN (Rec: 10/22/19 14:22 LRN [id number]) Out-Patient Physical Therapy Visit Information Visit Information Visit Type Treatment Note Visit Start Time 13:31 Visit Stop Time 14:31 Total Visit Minutes 60 Visit Number 3 Number of FOOD SAFETY SCIENTIST Visits 0 Evaluation Information Evaluation Date 10/12/19 Precautions Precautions R lobectomy COPD Depression PT-OP-B Current Condition Start: 10/09/19 19:21 Freq: Status: Active Protocol: Document 10/12/19 09:07 LRN (Rec: 10/12/19 09:55 LRN [id number]) Current Condition History of Current Condition Onset Date 4 months for low back, 2 weeks for the knee pain. Current Complaints Pain with certain movements and exercise walking and stairs. History of Current Condition Here for back pain. When standing up or getting out of the truck of bending over, gets a catch in the L SIJ that feels like the knees are going to buckle, also for general LBP from activity such as bending and lifting both during and after the activity for a couple weeks. Use of Advil helps take the pain down to baseline of 2/10. Pt also complains of bilateral knee pain that is present with walking or stairs. Losing weight that is helping with plantar fasciitis. Wearing orthotics and compression socks at night. Seeing Chiropractor. Prior Treatments and Tests None Treatment Goals Patient/Caregiver Goals Goal is to get back into shape and decrease general ache and to eliminate the sharp pain in the L Low back. Personal Factors Other Personal Factors That May Effect Chronicity of condition Therapy/Recovery Depression R lobectomy COPD PT-OP-C Subjective Start: 10/09/19 19:21 Freq: Status: Active Protocol: Document 10/22/19 13:31 LRN (Rec: 10/22/19 14:22 LRN [id number]) OP-PT Subjective Patient Comments Patient Comments Walked yesterday for 10' on a ride with some elevation changes, and did not have back pain. Today had chiropractor adjustment, feeling level. PT-OP-H Neuro Start: 10/09/19 19:21 Freq: Status: Active Protocol: Document 10/12/19 09:07 LRN (Rec: 10/13/19 13:38 LRN [id number]) Sensation Evaluation Gross Sensation Gross Sensation WNL Deep Tendon Reflex & Clonus Assessment Deep Tendon Reflex Left Patellar Deep Tendon Reflex 2+ Normal Right Patellar Deep Tendon Reflex 1+ Diminished Bilateral Achilles Deep Tendon Reflex 0 Absent PT-OP-J Posture/Palpation/Skin Start: 10/09/19 19:21 Freq: Status: Active Protocol: Document 10/12/19 09:07 LRN (Rec: 10/13/19 13:38 LRN [id number]) Posture Evaluation Position Standing Evaluation View All positions Head/C-Spine Posture Forward Head T-Spine Posture Increased Kyphosis Shoulder Posture (L) Elevated Palpation Assessment Location Sacrum Palpation Location R ALA & ILS Palpation Details Prone>HANNA: R ALA posterior > neutral; R BOBBY posterior > neutral PSIS Palpation Location Standing & supine: L PSIS is posterior PT-OP-K Range of Motion Start: 10/09/19 19:21 Freq: Status: Active Protocol: Document 10/19/19 14:21 LRN (Rec: 10/19/19 16:36 LRN [id number]) Hip Goniometric Range of Motion Hip Right Passive Testing Position Supine Abduction 40 Internal Rotation 10 External Rotation 75 Left Passive Testing Position Supine Abduction 40 Internal Rotation 10 External Rotation 75 PT-OP-L Special Tests Start: 10/09/19 19:21 Freq: Status: Active Protocol: Document 10/12/19 09:07 LRN (Rec: 10/13/19 13:38 LRN [id number]) Special Tests Lumbar Spine Special Tests Straight Leg Raise Test Results negative bilaterally Comments PROM is 80 deg's bilaterally Hip Special Tests BRITTANY Test Results negative bilaterally Comments Joint stiffness PT-OP-M Strength Start: 10/09/19 19:21 Freq: Status: Active Protocol: Document 10/12/19 09:07 LRN (Rec: 10/13/19 13:38 LRN [id number]) Hip Strength Hip Manual Muscle Testing Right Adduction 2 Poor Comments Strength is 5/5 except as indicated above. Left Adduction 1 Trace External Rotation 4 Good Comments Strength is 5/5 except as indicated above. PT-OP-Q Treatments Start: 10/09/19 19:21 Freq: Status: Active Protocol: Document 10/22/19 13:31 LRN (Rec: 10/22/19 14:22 LRN [id number]) Cardio Equipment Treadmill Duration (Minutes) 10 Speed 1.6 Incline 0 Other Speed slowly increased 1.3 to 1.9 Therapeutic Exercises Supine Exercises BKFO Supine Exercise Name BKFO w/TA tightening Side bilateral Equipment Used Ruler to identify core stability Reps/Minutes 15x each Comments Pt uses thumbs near buttocks to monitor for pelvic stability Heel slides Supine Exercise Name Nicolas Heel slides Side bilateral Equipment Used Slide sheets Reps/Minutes 15x 2 Iliopsoas stretch Supine Exercise Name Iliopsoas stretch w/leg off side of plinth Side bilateral Reps/Minutes 3' Piriformis Supine Exercise Name 1 leg left & 2 legged lift Side bilateral Reps/Minutes 3' Comments 1 leg lift ex is better for ex . DKTC Supine Exercise Name DKTC Stretch Reps/Minutes 10 SH x 6 Bridging Supine Exercise Name Bridging Reps/Minutes 10x Hip ER Supine Exercise Name Fig 4 stretch Side bilateral Reps/Minutes 3' Comments 60 Stretch each Hip IR Supine Exercise Name Lateral Hip stretch Side bilateral Reps/Minutes 3' Comments 60 stretch each TA Supine Exercise Name TA Reps/Minutes 3x Self-Care/Home Management Treatment Education Patient Education Home Exercise Program Activities Self-Care/Home Management Activities Issued & reviewed HEP handouts : Hip stretches: Fig 4, Lateral Hip, Piriformis, Hip flexor stretch. PT-OP-R Modalities Start: 10/09/19 19:21 Freq: Status: Active Protocol: Document 10/22/19 13:31 LRN (Rec: 10/22/19 14:22 LRN [id number]) Hot Pack/Cold Pack Treatment Cold Pack Location Low back Patient Position Supine Treatment Duration (minutes) 10 PT-OP-T Assessment and Plan Start: 10/09/19 19:21 Freq: Status: Active Protocol: Document 10/22/19 13:31 LRN (Rec: 10/22/19 14:22 LRN [id number]) Physical Therapy Assessment Goals Four Impairment Decreased fitness due to LBP. Short Term Goal (STG) Pt will be able to tolerate aerobic exercise of no less than 10 minutes without onset of L LBP. STG Duration 11/23/19 Invoice Checker Goal (LTG) Pt will be able to tolerate return to an exercise program at home or his local gym, to improve overall health and function. LTG Duration 01/10/20 Three Impairment Decreased core and hip strength (hip AD & L. ER) Short Term Goal (STG) Improve hip strength to no less than 3/5 and core strength with pt able to walk and bend over without sharp LBP. STG Duration 11/23/19 Two Impairment L LBP rated 6/10, limiting function (bending and lifting ability). Short Term Goal (STG) Decrease L LBP to no greater than 3/10. STG Duration 11/23/19 Invoice Checker Goal (LTG) Pt will be able to bend and lift light objects off the floor without pain. LTG Duration 01/10/20 One Impairment Pt lacks an appropriate self care HEP. Penitentiary Goal (LTG) Pt will be educated in a self care HEP. LTG Duration 01/10/20 Assessment Summary Assessment R SIJ appears slightly anteriorly rotated although L leg is very slightly long. Pt able to perform a TA with improved holding while breathing. Physical Therapy Plan Frequency and Duration Frequency of Treatment 2x/Week Plan of Care Start Date 10/12/19 Plan of Care End Date 01/10/20 Next Visit Focus/Plan Next Note Type Treatment Note Next Visit Plan Check pelvic symmetry and do JMT as needed; ex warm up on TM, f/b core stab, STM & modalities (as needed). JMT: innominates or sacrum ( possible L posteriorly rotated innominate and R rotated sacrum); neuro-reeducation of core stabilization training, MH/ES to low back for pain management. Focus on improving posture, mobility and strength of core/pelvis.
--- NOTE | 2019-10-26 16:28 | PT.OTN ---
Current Diagnoses Low back pain (10/26/19) Muscle weakness (generalized) (10/26/19) Other symptoms and signs involving the musculoskeletal system (10/26/19) Physical Therapy Treatment Note PT-OP-A Visit Information Start: 10/09/19 19:21 Freq: Status: Active Protocol: Document 10/26/19 14:19 LRN (Rec: 10/26/19 15:08 LRN [id number]) Out-Patient Physical Therapy Visit Information Visit Information Visit Type Treatment Note Visit Start Time 14:19 Visit Stop Time 15:13 Total Visit Minutes 54 Visit Number 4 Number of APPLICATOR SPRAYER Visits 0 Evaluation Information Evaluation Date 10/12/19 Precautions Precautions R lobectomy COPD Depression PT-OP-B Current Condition Start: 10/09/19 19:21 Freq: Status: Active Protocol: Document 10/12/19 09:07 LRN (Rec: 10/12/19 09:55 LRN [id number]) Current Condition History of Current Condition Onset Date 4 months for low back, 2 weeks for the knee pain. Current Complaints Pain with certain movements and exercise walking and stairs. History of Current Condition Here for back pain. When standing up or getting out of the truck of bending over, gets a catch in the L SIJ that feels like the knees are going to buckle, also for general LBP from activity such as bending and lifting both during and after the activity for a couple weeks. Use of Advil helps take the pain down to baseline of 2/10. Pt also complains of bilateral knee pain that is present with walking or stairs. Losing weight that is helping with plantar fasciitis. Wearing orthotics and compression socks at night. Seeing Chiropractor. Prior Treatments and Tests None Treatment Goals Patient/Caregiver Goals Goal is to get back into shape and decrease general ache and to eliminate the sharp pain in the L Low back. Personal Factors Other Personal Factors That May Effect Chronicity of condition Therapy/Recovery Depression R lobectomy COPD PT-OP-C Subjective Start: 10/09/19 19:21 Freq: Status: Active Protocol: Document 10/26/19 14:19 LRN (Rec: 10/26/19 15:08 LRN [id number]) OP-PT Subjective Patient Comments Patient Comments Still having trouble with L shldr blade ms cramps...worse lying down and driving. States there is less onset of sharp pain. Lately felt like in sitting was off to the L side. PT-OP-H Neuro Start: 10/09/19 19:21 Freq: Status: Active Protocol: Document 10/12/19 09:07 LRN (Rec: 10/13/19 13:38 LRN [id number]) Sensation Evaluation Gross Sensation Gross Sensation WNL Deep Tendon Reflex & Clonus Assessment Deep Tendon Reflex Left Patellar Deep Tendon Reflex 2+ Normal Right Patellar Deep Tendon Reflex 1+ Diminished Bilateral Achilles Deep Tendon Reflex 0 Absent PT-OP-J Posture/Palpation/Skin Start: 10/09/19 19:21 Freq: Status: Active Protocol: Document 10/12/19 09:07 LRN (Rec: 10/13/19 13:38 LRN [id number]) Posture Evaluation Position Standing Evaluation View All positions Head/C-Spine Posture Forward Head T-Spine Posture Increased Kyphosis Shoulder Posture (L) Elevated Palpation Assessment Location Sacrum Palpation Location R ALA & ILS Palpation Details Prone>HANNA: R ALA posterior > neutral; R BOBBY posterior > neutral PSIS Palpation Location Standing & supine: L PSIS is posterior PT-OP-K Range of Motion Start: 10/09/19 19:21 Freq: Status: Active Protocol: Document 10/19/19 14:21 LRN (Rec: 10/19/19 16:36 LRN [id number]) Hip Goniometric Range of Motion Hip Right Passive Testing Position Supine Abduction 40 Internal Rotation 10 External Rotation 75 Left Passive Testing Position Supine Abduction 40 Internal Rotation 10 External Rotation 75 PT-OP-L Special Tests Start: 10/09/19 19:21 Freq: Status: Active Protocol: Document 10/12/19 09:07 LRN (Rec: 10/13/19 13:38 LRN [id number]) Special Tests Lumbar Spine Special Tests Straight Leg Raise Test Results negative bilaterally Comments PROM is 80 deg's bilaterally Hip Special Tests BRITTANY Test Results negative bilaterally Comments Joint stiffness PT-OP-M Strength Start: 10/09/19 19:21 Freq: Status: Active Protocol: Document 10/12/19 09:07 LRN (Rec: 10/13/19 13:38 LRN [id number]) Hip Strength Hip Manual Muscle Testing Right Adduction 2 Poor Comments Strength is 5/5 except as indicated above. Left Adduction 1 Trace External Rotation 4 Good Comments Strength is 5/5 except as indicated above. PT-OP-Q Treatments Start: 10/09/19 19:21 Freq: Status: Active Protocol: Document 10/26/19 14:19 LRN (Rec: 10/26/19 15:08 LRN [id number]) Cardio Equipment Treadmill Duration (Minutes) 10 Speed 2.0 Incline 0 Other Speed increased quickly to 2.0 Therapeutic Exercises Supine Exercises BKFO Supine Exercise Name BKFO w/TA tightening Side bilateral Reps/Minutes 15x each Comments Manual C. tx with ex Heel slides Supine Exercise Name Nicolas Heel slides Side bilateral Equipment Used Slide sheets Reps/Minutes 15x Comments Manual C. tx with ex DKTC Supine Exercise Name DKTC Stretch Reps/Minutes 10 SH x 6 Bridging Supine Exercise Name Bridging Reps/Minutes 10x Sidelying Exercises TA w/clamshell Sidelying Exercise Name TA w/Clamshell Side bilateral Reps/Minutes 15 x 2 Comments v cues to breath Standing Exercises TA Standing Exercise Name Holding TA with standing posture and initiation of gait . Manual Therapy Treatment Joint Mobilizations SIJ mob Joint L SIJ and R SIJ Direction Corrected R SIJ posterior rotated, then correction with rx for L anter SIJ Body Position Supine Reps/Duration 10' Comments Correction of L anteriorly rotated innominate more helpful than correction of R posteriorly rotated innominate . Sacrum Joint Sacrum Direction Correcting L rotated sacrum Grade II Body Position Prone Reps/Duration 5' Comments MFR correction PT-OP-R Modalities Start: 10/09/19 19:21 Freq: Status: Active Protocol: Document 10/26/19 14:19 LRN (Rec: 10/26/19 16:20 LRN [id number]) Hot Pack/Cold Pack Treatment Cold Pack Location Low back Patient Position Supine Treatment Duration (minutes) 10 PT-OP-T Assessment and Plan Start: 10/09/19 19:21 Freq: Status: Active Protocol: Document 10/26/19 14:19 LRN (Rec: 10/26/19 15:08 LRN [id number]) Physical Therapy Assessment Goals Four Impairment Decreased fitness due to LBP. Short Term Goal (STG) Pt will be able to tolerate aerobic exercise of no less than 10 minutes without onset of L LBP. STG Duration 11/23/19 Residential Goal (LTG) Pt will be able to tolerate return to an exercise program at home or his local gym, to improve overall health and function. LTG Duration 01/10/20 Three Impairment Decreased core and hip strength (hip AD & L. ER) Short Term Goal (STG) Improve hip strength to no less than 3/5 and core strength with pt able to walk and bend over without sharp LBP. STG Duration 11/23/19 Two Impairment L LBP rated 6/10, limiting function (bending and lifting ability). Short Term Goal (STG) Decrease L LBP to no greater than 3/10. STG Duration 11/23/19 Residential Goal (LTG) Pt will be able to bend and lift light objects off the floor without pain. LTG Duration 01/10/20 One Impairment Pt lacks an appropriate self care HEP. Residential Goal (LTG) Pt will be educated in a self care HEP. LTG Duration 01/10/20 Assessment Summary Assessment L SIJ anteriorly rotated and Sacrum in L rotation. Mob of R for posterior rotation made no change. Pt unstable in pelvis. HEP needed for his trip next week. Physical Therapy Plan Frequency and Duration Frequency of Treatment 2x/Week Plan of Care Start Date 10/12/19 Plan of Care End Date 01/10/20 Next Visit Focus/Plan Next Note Type Treatment Note Next Visit Plan HEP for trip next week. Check pelvic symmetry and correct as needed, f/b core stab with aerobic conditioning and stabilization program (with manual c. tx for back pain), STM & modality to back to help with LB and UB pain. JMT: innominates or sacrum ( possible L posteriorly rotated innominate and R rotated sacrum); neuro-reeducation of core stabilization training, MH/ES to low back for pain management. Focus on improving posture, mobility and strength of core/pelvis.
--- NOTE | 2019-10-29 16:26 | PT.OTN ---
Current Diagnoses Low back pain (10/29/19) Muscle weakness (generalized) (10/29/19) Other symptoms and signs involving the musculoskeletal system (10/29/19) Physical Therapy Treatment Note PT-OP-A Visit Information Start: 10/09/19 19:21 Freq: Status: Active Protocol: Document 10/29/19 14:15 LRN (Rec: 10/29/19 15:07 LRN [id number]) Out-Patient Physical Therapy Visit Information Visit Information Visit Type Treatment Note Visit Start Time 14:15 Visit Stop Time 15:10 Total Visit Minutes 55 Visit Number 5 Number of PRODUCTION CREW SUPERVISOR Visits 0 Evaluation Information Evaluation Date 10/12/19 Precautions Precautions R lobectomy COPD Depression PT-OP-B Current Condition Start: 10/09/19 19:21 Freq: Status: Active Protocol: Document 10/12/19 09:07 LRN (Rec: 10/12/19 09:55 LRN [id number]) Current Condition History of Current Condition Onset Date 4 months for low back, 2 weeks for the knee pain. Current Complaints Pain with certain movements and exercise walking and stairs. History of Current Condition Here for back pain. When standing up or getting out of the truck of bending over, gets a catch in the L SIJ that feels like the knees are going to buckle, also for general LBP from activity such as bending and lifting both during and after the activity for a couple weeks. Use of Advil helps take the pain down to baseline of 2/10. Pt also complains of bilateral knee pain that is present with walking or stairs. Losing weight that is helping with plantar fasciitis. Wearing orthotics and compression socks at night. Seeing Chiropractor. Prior Treatments and Tests None Treatment Goals Patient/Caregiver Goals Goal is to get back into shape and decrease general ache and to eliminate the sharp pain in the L Low back. Personal Factors Other Personal Factors That May Effect Chronicity of condition Therapy/Recovery Depression R lobectomy COPD PT-OP-C Subjective Start: 10/09/19 19:21 Freq: Status: Active Protocol: Document 10/29/19 14:15 LRN (Rec: 10/29/19 15:07 LRN [id number]) OP-PT Subjective Patient Comments Patient Comments States he was sore in the back after the last session but is fine today, no pain in low back, only pain in shoulder blade. Leaving on vacation next week and will return in 1 month (at end of Oct). PT-OP-H Neuro Start: 10/09/19 19:21 Freq: Status: Active Protocol: Document 10/12/19 09:07 LRN (Rec: 10/13/19 13:38 LRN [id number]) Sensation Evaluation Gross Sensation Gross Sensation WNL Deep Tendon Reflex & Clonus Assessment Deep Tendon Reflex Left Patellar Deep Tendon Reflex 2+ Normal Right Patellar Deep Tendon Reflex 1+ Diminished Bilateral Achilles Deep Tendon Reflex 0 Absent PT-OP-J Posture/Palpation/Skin Start: 10/09/19 19:21 Freq: Status: Active Protocol: Document 10/12/19 09:07 LRN (Rec: 10/13/19 13:38 LRN [id number]) Posture Evaluation Position Standing Evaluation View All positions Head/C-Spine Posture Forward Head T-Spine Posture Increased Kyphosis Shoulder Posture (L) Elevated Palpation Assessment Location Sacrum Palpation Location R ALA & ILS Palpation Details Prone>HANNA: R ALA posterior > neutral; R BOBBY posterior > neutral PSIS Palpation Location Standing & supine: L PSIS is posterior PT-OP-K Range of Motion Start: 10/09/19 19:21 Freq: Status: Active Protocol: Document 10/19/19 14:21 LRN (Rec: 10/19/19 16:36 LRN [id number]) Hip Goniometric Range of Motion Hip Right Passive Testing Position Supine Abduction 40 Internal Rotation 10 External Rotation 75 Left Passive Testing Position Supine Abduction 40 Internal Rotation 10 External Rotation 75 PT-OP-L Special Tests Start: 10/09/19 19:21 Freq: Status: Active Protocol: Document 10/12/19 09:07 LRN (Rec: 10/13/19 13:38 LRN [id number]) Special Tests Lumbar Spine Special Tests Straight Leg Raise Test Results negative bilaterally Comments PROM is 80 deg's bilaterally Hip Special Tests BRITTANY Test Results negative bilaterally Comments Joint stiffness PT-OP-M Strength Start: 10/09/19 19:21 Freq: Status: Active Protocol: Document 10/12/19 09:07 LRN (Rec: 10/13/19 13:38 LRN [id number]) Hip Strength Hip Manual Muscle Testing Right Adduction 2 Poor Comments Strength is 5/5 except as indicated above. Left Adduction 1 Trace External Rotation 4 Good Comments Strength is 5/5 except as indicated above. PT-OP-Q Treatments Start: 10/09/19 19:21 Freq: Status: Active Protocol: Document 10/29/19 14:15 LRN (Rec: 10/29/19 15:07 LRN [id number]) Cardio Equipment Treadmill Duration (Minutes) 10 Speed 2.0 Incline 0 Therapeutic Exercises Supine Exercises Piriformis Supine Exercise Name 1 leg left Side bilateral Reps/Minutes 3' DKTC Supine Exercise Name DKTC Stretch Reps/Minutes 10 SH x 6 Bridging Supine Exercise Name Bridging Reps/Minutes 8x Hip ER Supine Exercise Name Fig 4 stretch Side bilateral Reps/Minutes 3' Comments 60 Stretch each Hip IR Supine Exercise Name Lateral Hip stretch Side bilateral Reps/Minutes 3' Comments 60 stretch each Sidelying Exercises TA w/clamshell Sidelying Exercise Name TA w/Clamshell Side bilateral Reps/Minutes 10 x 2 Comments v cues to breath Self-Care/Home Management Treatment Education Patient Education Home Exercise Program Other Education Educated pt in self assessment and correction for anteriorly rotated innominate with I/S for his common dysfunction. Activities Self-Care/Home Management Activities Issued 2nd set of home ex's for pt to take on his vacation trip. Added, issued, and reviewed HEP: SIJ dysfunction phase I, DKTC stretch, Bridging and sidelie clamshell. PT-OP-R Modalities Start: 10/09/19 19:21 Freq: Status: Active Protocol: Document 10/29/19 14:15 LRN (Rec: 10/29/19 15:07 LRN [id number]) Hot Pack/Cold Pack Treatment Cold Pack Location Low back Patient Position Supine Treatment Duration (minutes) 10 PT-OP-T Assessment and Plan Start: 10/09/19 19:21 Freq: Status: Active Protocol: Document 10/29/19 14:15 LRN (Rec: 10/29/19 15:07 LRN [id number]) Physical Therapy Assessment Goals Four Impairment Decreased fitness due to LBP. Short Term Goal (STG) Pt will be able to tolerate aerobic exercise of no less than 10 minutes without onset of L LBP. STG Duration 11/23/19 Infusion Therapy Nurse Goal (LTG) Pt will be able to tolerate return to an exercise program at home or his local gym, to improve overall health and function. LTG Duration 01/10/20 Three Impairment Decreased core and hip strength (hip AD & L. ER) Short Term Goal (STG) Improve hip strength to no less than 3/5 and core strength with pt able to walk and bend over without sharp LBP. STG Duration 11/23/19 Two Impairment L LBP rated 6/10, limiting function (bending and lifting ability). Short Term Goal (STG) Decrease L LBP to no greater than 3/10. STG Duration 11/23/19 Penitentiary Goal (LTG) Pt will be able to bend and lift light objects off the floor without pain. LTG Duration 01/10/20 One Impairment Pt lacks an appropriate self care HEP. Infusion Therapy Nurse Goal (LTG) Pt will be educated in a self care HEP. LTG Duration 01/10/20 Assessment Summary Assessment Good lift with leg on clamshell. Pt was stable in pelvis today and appears to have a good understanding of self correction technique. He has no pain with 10' on TM; therefore his endurance is improving and can now progress towards return to gym and self care exercise. Pt is to work towards improving hip mobility, core/pelvic stability, and expect improved endurance and general hip strength on return from vacation. Physical Therapy Plan Frequency and Duration Frequency of Treatment 2x/Week Plan of Care Start Date 10/12/19 Plan of Care End Date 01/10/20 Next Visit Focus/Plan Next Note Type Treatment Note Next Visit Plan Recheck with pt returning from vacation after 1 month on self ex program. Check pelvic symmetry and correct as needed, f/b core stab with aerobic conditioning and stabilization program (with manual c. tx for back pain), STM & modality to back to help with LB and UB pain. JMT: innominates or sacrum ( possible L posteriorly rotated innominate and R rotated sacrum); neuro-reeducation of core stabilization training, MH/ES to low back for pain management. Focus on improving posture, mobility and strength of core/pelvis.
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
--- NOTE | 2019-12-17 11:45 | PT.OTN ---
Current Diagnoses Low back pain (12/17/19) Muscle weakness (generalized) (12/17/19) Other symptoms and signs involving the musculoskeletal system (12/17/19) Physical Therapy Treatment Note PT-OP-A Visit Information Start: 10/09/19 19:21 Freq: Status: Active Protocol: Document 12/17/19 09:49 LRN (Rec: 12/17/19 11:44 LRN [id number]) Out-Patient Physical Therapy Visit Information Visit Information Visit Type Treatment Note Visit Start Time 09:49 Visit Stop Time 10:27 Total Visit Minutes 38 Visit Number 7 Number of TAB CARD PRESS OPERATOR Visits 0 Evaluation Information Evaluation Date 10/12/19 Precautions Precautions R lobectomy COPD Depression PT-OP-B Current Condition Start: 10/09/19 19:21 Freq: Status: Active Protocol: Document 10/12/19 09:07 LRN (Rec: 10/12/19 09:55 LRN [id number]) Current Condition History of Current Condition Onset Date 4 months for low back, 2 weeks for the knee pain. Current Complaints Pain with certain movements and exercise walking and stairs. History of Current Condition Here for back pain. When standing up or getting out of the truck of bending over, gets a catch in the L SIJ that feels like the knees are going to buckle, also for general LBP from activity such as bending and lifting both during and after the activity for a couple weeks. Use of Advil helps take the pain down to baseline of 2/10. Pt also complains of bilateral knee pain that is present with walking or stairs. Losing weight that is helping with plantar fasciitis. Wearing orthotics and compression socks at night. Seeing Chiropractor. Prior Treatments and Tests None Treatment Goals Patient/Caregiver Goals Goal is to get back into shape and decrease general ache and to eliminate the sharp pain in the L Low back. Personal Factors Other Personal Factors That May Effect Chronicity of condition Therapy/Recovery Depression R lobectomy COPD PT-OP-C Subjective Start: 10/09/19 19:21 Freq: Status: Active Protocol: Document 12/17/19 09:49 LRN (Rec: 12/17/19 11:44 LRN [id number]) OP-PT Subjective Patient Comments Patient Comments States he will be starting Respiratory Therapy; therefore requests DC for therapy today because he would not be able to tolerate that much therapy. States he can bend over and put his knuckles on the ground . Has lost 28#. Patient Questionnaires Oswestry Low Back Index Oswestry Score 0 Oswestry Impairment 0% Impaired (Score 0) OP-PT Pain Assessment Pain Assessment Grid Paper Pain Assessment Grid Completed No Location LBP across entire back Pain Location Details Low Back Intensity 0 Scale Used Numeric (1 - 10) L Low back pain Pain Location Details L Low back Intensity 0 Scale Used Numeric (1 - 10) PT-OP-H Neuro Start: 10/09/19 19:21 Freq: Status: Active Protocol: Document 10/12/19 09:07 LRN (Rec: 10/13/19 13:38 LRN [id number]) Sensation Evaluation Gross Sensation Gross Sensation WNL Deep Tendon Reflex & Clonus Assessment Deep Tendon Reflex Left Patellar Deep Tendon Reflex 2+ Normal Right Patellar Deep Tendon Reflex 1+ Diminished Bilateral Achilles Deep Tendon Reflex 0 Absent PT-OP-J Posture/Palpation/Skin Start: 10/09/19 19:21 Freq: Status: Active Protocol: Document 10/12/19 09:07 LRN (Rec: 10/13/19 13:38 LRN [id number]) Posture Evaluation Position Standing Evaluation View All positions Head/C-Spine Posture Forward Head T-Spine Posture Increased Kyphosis Shoulder Posture (L) Elevated Palpation Assessment Location Sacrum Palpation Location R ALA & ILS Palpation Details Prone>HANNA: R ALA posterior > neutral; R BOBBY posterior > neutral PSIS Palpation Location Standing & supine: L PSIS is posterior PT-OP-K Range of Motion Start: 10/09/19 19:21 Freq: Status: Active Protocol: Document 10/19/19 14:21 LRN (Rec: 10/19/19 16:36 LRN [id number]) Hip Goniometric Range of Motion Hip Right Passive Testing Position Supine Abduction 40 Internal Rotation 10 External Rotation 75 Left Passive Testing Position Supine Abduction 40 Internal Rotation 10 External Rotation 75 PT-OP-L Special Tests Start: 10/09/19 19:21 Freq: Status: Active Protocol: Document 10/12/19 09:07 LRN (Rec: 10/13/19 13:38 LRN [id number]) Special Tests Lumbar Spine Special Tests Straight Leg Raise Test Results negative bilaterally Comments PROM is 80 deg's bilaterally Hip Special Tests BRITTANY Test Results negative bilaterally Comments Joint stiffness PT-OP-M Strength Start: 10/09/19 19:21 Freq: Status: Active Protocol: Document 12/17/19 09:49 LRN (Rec: 12/17/19 11:44 LRN [id number]) Hip Strength Hip Manual Muscle Testing Right Adduction 3+ Fair+ Comments Strength generally 5/5 except as listed above. Left Adduction 3- Fair- Comments Strength generally 5/5 except as listed above. PT-OP-Q Treatments Start: 10/09/19 19:21 Freq: Status: Active Protocol: Document 12/17/19 09:49 LRN (Rec: 12/17/19 11:44 LRN [id number]) Cardio Equipment Treadmill Duration (Minutes) 14 Speed 2.0 Incline 0 Therapeutic Exercises Supine Exercises SLR Side bilateral Comments MMT Hip ER stretch Supine Exercise Name Fig 4 stretch Side bilateral Reps/Minutes 3' Comments 60 stretch each Hip AD/AB Supine Exercise Name Hip AD/AB Reps/Minutes 10 x 3 Comments MMT DKTC Supine Exercise Name SKTC Bilaterally Reps/Minutes 10 SH x 6 Hip ER Supine Exercise Name Fig 4 stretch Side bilateral Reps/Minutes 3' Comments 60 Stretch each Prone Exercises Hip ext Prone Exercise Name Hip Ext Side bilateral Comments MMT Sidelying Exercises Hip AD Sidelying Exercise Name Hip AD Side bilateral Reps/Minutes 10x Comments Extra time for training Self-Care/Home Management Treatment Education Patient Education Home Exercise Program Activities Self-Care/Home Management Activities Issued & reviewed HEP: Hip AD strengthening. PT-OP-R Modalities Start: 10/09/19 19:21 Freq: Status: Active Protocol: Document 10/29/19 14:15 LRN (Rec: 10/29/19 15:07 LRN [id number]) Hot Pack/Cold Pack Treatment Cold Pack Location Low back Patient Position Supine Treatment Duration (minutes) 10 PT-OP-T Assessment and Plan Start: 10/09/19 19:21 Freq: Status: Active Protocol: Document 12/17/19 09:49 LRN (Rec: 12/17/19 11:44 LRN [id number]) Physical Therapy Assessment Goals Four Impairment Decreased fitness due to LBP. Short Term Goal (STG) Pt will be able to tolerate aerobic exercise of no less than 10 minutes without onset of L LBP. STG Duration 11/23/19 (12/17/19: MET GOAL. No L LBP) Prison Goal (LTG) Pt will be able to tolerate return to an exercise program at home or his local gym, to improve overall health and function. LTG Duration 01/10/20 (12/17/19: MET GOAL, starting ex prog @ rehab center next week) Three Impairment Decreased core and hip strength (hip AD & L. ER) Short Term Goal (STG) Improve hip strength to no less than 3/5 and core strength with pt able to walk and bend over without sharp LBP. (Pt able to walk & bend over without pain) STG Duration 11/23/19 (12/17/19: MET GOALS) Two Impairment L LBP rated 6/10, limiting function (bending and lifting ability). Short Term Goal (STG) Decrease L LBP to no greater than 3/10. STG Duration 11/23/19 (12/17/19: MET GOAL, pain is rated 0-2/10) Internal Security Manager Goal (LTG) Pt will be able to bend and lift light objects off the floor without pain. LTG Duration 01/10/20 11/23/19 (12/17/19: MET GOAL) One Impairment Pt lacks an appropriate self care HEP. Prison Goal (LTG) Pt will be educated in a self care HEP. LTG Duration 01/10/20 (: MET GOAL FOR BACK PAIN MANAGMENT) Assessment Summary Assessment Pt has met all goals although there is weakness of his hip AD's bilaterally, tested as 3 to 3(-)/5. The pt will be starting a gym class through the respiratory therapy department and he as been issued a HEP to improve his Hip AD strength. The pt has no LBP and is ready for discharge to a self care program. Physical Therapy Plan Frequency and Duration Plan of Care Start Date 10/12/19 Plan of Care End Date 01/10/20 Discharge Physical Therapy Discharge Reasons Goals Met Discharge Comments Pt starting respiratory therapy 2-3x/week; therefore would not be able to tolerate PT 2x/week. He is starting his gym workout program in the respiratory department. Thank you for your referral.
== END 2019-12-17 13:32 ==
LOC: PHYS 09:45
PROVIDERS: PCP Family Medicine; Visit Provider Nurse Practitioner Family
DX: M54.5 Low back pain (principal); R29.898 Other symptoms and signs involving the musculoskeletal system; M62.81 Muscle weakness (generalized)
CPT/HCPCS: 97110; 97140; 97162; 97535

== ENCOUNTER → 2020-12-24 09:19 | Outpatient (CLI) | payer MEDICARE, SELFPAY ==
[2020-12-24 11:35] LABS: COVID19 -Nasal RAPID Negative (Negative)
== END ==
PROVIDERS: PCP Family Medicine; Visit Provider Nurse Practitioner
DX: Z20.822 Contact with and (suspected) exposure to COVID-19 (principal)
CPT/HCPCS: 87635; C9803

== ENCOUNTER 2020-12-27 09:41 | Day surgery (SDC) | payer MEDICARE, SELFPAY ==
[2020-12-27] MEDS: PROPARACAINE 0.5% OPHTH SOL 2 DROPS EYE-OP (10:28)
[2020-12-27] MEDS: CATARACT EYE COMPOUND (10 DROPS/SYRINGE) 3 DROPS EYE-OP (10:40)
[2020-12-27 10:41] VITALS: BP 154/86; PULSE 60; RESP 18; TEMP 36.6; O2SAT 99; BMI 24.4
[2020-12-27 10:52] VITALS: BMI 24.4
--- NOTE | 2020-12-27 11:55 | P.OP_ITS ---
Operative Date/Time/Diagnoses Pre-op diagnosis: Nuclear cataract right eye Procedure & Clinicians Procedure: Cataract Surgery Same procedure as scheduled: Yes Surgeon: Campos Mauricio Anesthesia Type: MAC +/- and Sedation Operative Notes Procedure in detail: Patient brought to the operating suite. Tetracaine drops placed in the right eye. Marking instrument marked the 180 degree meridian. Patient was prepped and draped in sterile manner. Wire lid speculum was placed in the eye. Betadine drops were placed on the eye. This was irrigated. Lidocaine jelly was placed on the eye. A paracentesis port was created with a side-port blade. 0.1 mL 1% preservative free lidocaine was injected into the anterior chamber. The anterior chamber was deepened with viscoelastic. 2.6 mm keratome was used to create a temporal clear corneal incision. Cystotome and Utrata forceps were used to create continuous tear capsulorrhexis. Balanced salt solution was used to hydro dissect the nucleus. The phacoemulsification handpiece was inserted and the nucleus was removed using the stop and chop technique. The irrigation aspiration handpiece was inserted and the remaining cortex was removed. Anterior chamber was deepened with viscoelastic. An Garza [id number] intraocular lens with a power of 20.0 was injected into the capsular bag. Irrigation aspiration handpiece was inserted and the remaining viscoelastic was removed. The lens was rotated to the 180 degree meridian. Incision was hydrated with balanced salt solution and found to be leak free with pressure with Weck- Deborah sponges. 0.1 mL Vigamox injected anterior chamber. 0.3 mL Kenalog 10 mg was injected subconjunctivally. Lid speculum was removed. The patient left the operating room in excellent condition. Complications: none Post-operative Condition: stable Disposition: same day surgery
--- NOTE | 2020-12-27 11:55 | PM.PREOP ---
Pre-operative Note Interval Note History & Physical reviewed/Exam performed by Physician: Yes Changes to H&P: No
[2020-12-27] MEDS: LIDOCAINE JELLY 2% 5 ML 1 APPLIC TOP (12:11)
[2020-12-27] MEDS: PHENYLEPHRINE/LIDOCAINE VIAL (OR) 0.2 ML EYE-OP (12:11)
[2020-12-27] MEDS: MOXIFLOXACIN INJ 5 MG/ML VIAL EYE-OP (12:11)
[2020-12-27] MEDS: TRIAMCINOLONE 50 MG/5 ML VIAL INJ (12:11)
[2020-12-27] MEDS: BALANCED SALT IRRIG SOLN NO.2 500 ML, EPINEPHrine 1 MG IRR (12:12)
[2020-12-27] MEDS: CHONDROIDTIN/SOD HYALURONATE 1.05 ML SYRINGE INTRAOCULA (12:13)
[2020-12-27] MEDS: TETRACAINE 0.5% OPHTH DROPS 4 ML 2 DROPS EYE-OP (12:14)
[2020-12-27 12:37] VITALS: BP 150/95; PULSE 69; RESP 16; TEMP 36.3; O2SAT 95
== END 2020-12-27 12:52 | disposition home or self-care (01) ==
LOC: OR 09:46
PROVIDERS: PCP Family Medicine; Referring Provider Ophthalmology; Visit Provider Ophthalmology
PROC: (CPT 66984; principal; 2020-12-27 12:15)
DX: H25.11 Age-related nuclear cataract, right eye (principal); J44.9 Chronic obstructive pulmonary disease, unspecified; F41.9 Anxiety disorder, unspecified; F43.10 Post-traumatic stress disorder, unspecified
CPT/HCPCS: 66984; J0171; J2250; J3010; J3301; V2787

== ENCOUNTER → 2021-01-07 09:41 | Outpatient (CLI) | payer MEDICARE, SELFPAY ==
[2021-01-07 14:42] LABS: COVID19 -Nasal RAPID Negative (Negative)
== END ==
PROVIDERS: PCP Family Medicine; Visit Provider Physician Assistant
DX: Z20.822 Contact with and (suspected) exposure to COVID-19 (principal)
CPT/HCPCS: 87635; C9803

== ENCOUNTER 2021-01-10 09:05 | Day surgery (SDC) | payer MEDICARE, SELFPAY ==
[2021-01-10] MEDS: PROPARACAINE 0.5% OPHTH SOL 2 DROPS EYE-OP (10:40)
[2021-01-10 10:42] VITALS: BP 147/87; PULSE 67; RESP 16; TEMP 36.7; O2SAT 99; BMI 26.9
[2021-01-10] MEDS: CATARACT EYE COMPOUND (10 DROPS/SYRINGE) 3 DROPS EYE-OP (10:51)
--- NOTE | 2021-01-10 11:26 | PM.PREOP ---
Pre-operative Note Interval Note History & Physical reviewed/Exam performed by Physician: Yes Changes to H&P: No
--- NOTE | 2021-01-10 11:26 | PM.OP.1 ---
Operative Date/Time/Diagnoses Pre-op diagnosis: Nuclear Cataract Left eye Post-op diagnosis: same Procedure & Clinicians Same procedure as scheduled: Yes Surgeon: Campos Mauricio Anesthesia Type: MAC +/- and Sedation Operative Notes Procedure in detail: Patient brought to the operating suite. Tetracaine drops placed in the left eye. The vertical and horizontal axis was marked with the marking instrument. Patient was prepped and draped in sterile manner. Wire lid speculum was placed in the eye. Betadine drops were placed on the eye. This was irrigated. Lidocaine jelly was placed on the eye. A paracentesis port was created with a side-port blade. 0.1 mL 1% preservative free lidocaine was injected into the anterior chamber. The anterior chamber was deepened with viscoelastic. 2.6 mm keratome was used to create a temporal clear corneal incision. Cystotome and Utrata forceps were used to create continuous tear capsulorrhexis. Balanced salt solution was used to hydro dissect the nucleus. The phacoemulsification handpiece was inserted and the nucleus was removed using the stop and chop technique. The irrigation aspiration handpiece was inserted and the remaining cortex was removed. Anterior chamber was deepened with viscoelastic. An Garza [id number] intraocular lens with a power of 20.5 was injected into the capsular bag. Irrigation aspiration handpiece was inserted and the remaining viscoelastic was removed. The lens was rotated to the 180 degree meridain. Incision was hydrated with balanced salt solution and found to be leak free with pressure with Weck-Deborah sponges. 0.1 mL Vigamox injected anterior chamber. 0.3 mL Kenalog 10 mg was injected subconjunctivally. Lid speculum was removed. The patient left the operating room in excellent condition. Complications: none Post-operative Condition: stable Disposition: same day surgery
[2021-01-10] MEDS: LIDOCAINE JELLY 2% 5 ML 1 APPLIC TOP (11:38)
[2021-01-10] MEDS: BALANCED SALT IRRIG SOLN NO.2 500 ML, EPINEPHrine 1 MG IRR (11:39)
[2021-01-10] MEDS: MOXIFLOXACIN INJ 5 MG/ML VIAL EYE-OP (11:39)
[2021-01-10] MEDS: TRIAMCINOLONE 50 MG/5 ML VIAL INJ (11:40)
[2021-01-10] MEDS: CHONDROIDTIN/SOD HYALURONATE 1.05 ML SYRINGE INTRAOCULA (11:41)
[2021-01-10] MEDS: PHENYLEPHRINE/LIDOCAINE VIAL (OR) 0.2 ML EYE-OP (11:41)
[2021-01-10] MEDS: TETRACAINE 0.5% OPHTH DROPS 4 ML 2 DROPS EYE-OP (11:41)
[2021-01-10 12:10] VITALS: BP 143/82; PULSE 58; RESP 16; TEMP 36.6; O2SAT 99
== END 2021-01-10 12:25 | disposition home or self-care (01) ==
PROVIDERS: PCP Family Medicine; Referring Provider Ophthalmology; Visit Provider Ophthalmology
PROC: (CPT 66984; principal; 2021-01-10 12:15)
DX: H25.12 Age-related nuclear cataract, left eye (principal); J44.9 Chronic obstructive pulmonary disease, unspecified; F43.10 Post-traumatic stress disorder, unspecified; F41.9 Anxiety disorder, unspecified
CPT/HCPCS: 66984; J0171; J2250; J3010; J3301; V2787

== ENCOUNTER 2021-07-20 08:30 | Outpatient (RCR) | payer OTHER, SELFPAY | END 2021-07-20 10:30 | LOC: PUL 08:30 | PROVIDERS: PCP Family Medicine; Referring Provider Internal Medicine Critical Care Medicine; Visit Provider Internal Medicine Critical Care Medicine | DX: J44.9 Chronic obstructive pulmonary disease, unspecified (principal) | CPT/HCPCS: G0424 ==

== ENCOUNTER 2023-08-22 12:58 | Inpatient (IN) | payer OTHER, SELFPAY ==
[2023-08-22] VITALS (16 sets, daily range): BP systolic 96–129; BP diastolic 58–70; PULSE 80–144; RESP 16–28; TEMP 36.5–38.8; O2SAT 91–96; BMI 25.1; BMI 25.2
--- NOTE | 2023-08-22 13:43 | DI.RAD.S_ITS ---
PROCEDURE: XR CHEST 1V INDICATIONS: suspected sepsis TECHNIQUE: One view of the chest was acquired. COMPARISON: [facility], , CHEST 2 VIEW, 08/10/2016, 12:35. FINDINGS: Surgical changes and devices: None. Lungs and pleura: Focal and confluent areas of patchy opacity are present within the left lung. Mediastinum: Mediastinal contours appear normal. Heart size is enlarged. Bones and chest wall: No suspicious bony lesions. Overlying soft tissues appear unremarkable. IMPRESSION: Patchy left lobe opacities most suggestive of pneumonia. Dictated by: Opal Zhu M.D. on 08/22/2023 at 15:02 Approved by: Opal Zhu M.D. on 08/22/2023 at 15:03
[2023-08-22 14:17] LABS: Add Manual Diff / Slide Review NO; Basophils Absolute Auto 0 /uL (0-100); Basophils Percent Auto 0.1 % (0-2); Eosinophils Absolute Auto 0 /uL (0-450); Eosinophils Percent Auto 0.1 % (2-4); Hematocrit 45.3 % (41-53); Hemoglobin 15.3 g/dL (13.5-17.5); Lymphocytes Absolute Auto 200 /uL (1100-4500); Lymphocytes Percent Auto 3.2 % (25-40); Mean Corpuscular HGB Conc 33.7 % (30-36); Mean Corpuscular Hemoglobin 33.6 PG (26-34); Mean Corpuscular Volume 99.5 fL (80-100); Monocytes Absolute Auto 100 /uL (0-900); Monocytes Percent Auto 2.2 % (3-14); Neutrophils Absolute Auto 5400 /uL (1500-7000); Neutrophils Percent Auto 94.4 % (50-75); Platelet Count 244 X10^3/uL (150-400); Red Blood Cell Count 4.55 X10^6/uL (4.5-5.9); White Blood Cell Count 5.7 X10^3/uL (4.5-11.0)
[2023-08-22] MEDS: SODIUM CHLORIDE 0.9% 1,000 ML 1000 ML IV (14:23)
[2023-08-22 14:24] LABS: INR 1.1 (0.9-1.3); Prothrombin Time 12.2 SECONDS (10.1-12.7)
[2023-08-22 14:26] LABS: PTT Partial Thromboplastin Tim 25 SECONDS (26-36)
[2023-08-22 14:30] LABS: Alanine Aminotransferase 23 IU/L (<50); Albumin 4.4 g/dL (3.5-5.0); Albumin Globulin Ratio 1.5 (1.0-2.8); Alkaline Phosphatase 81 U/L (38-126); Aspartate Aminotransferase 35 IU/L (17-59); BUN Creatinine Ratio 17.9 (6-22); Bilirubin Total 0.7 mg/dL (0.2-1.3); Blood Urea Nitrogen 20 mg/dL (9-20); Calcium 9.1 mg/dL (8.4-10.2); Carbon Dioxide 23 mmol/L (22-32); Chloride 101 mmol/L (98-107); Estimated Glomerular Filt Rate > 60 mL/min (>60); Glucose 102 mg/dL (80-110); HEMOLYSIS < 15 (0-50); Lipase 158 U/L (23-300); Potassium 4.3 mmol/L (3.4-5.1); Sodium 136 mmol/L (137-145); Total Protein 7.4 g/dL (6.3-8.2)
[2023-08-22 14:31] LABS: Lactate (Lactic Acid) 1.5 mmol/L (0.7-2.1)
--- NOTE | 2023-08-22 14:44 | DI.CT.S_ITS ---
PROCEDURE: CT CHEST ABD PEL WO CON INDICATIONS: Sepsis TECHNIQUE: After the administration of oral contrast, 5 mm thick sections acquired from the lung apices to the symphysis pubis. 5 mm thick coronal and sagittal reformats acquired, with additional 7 mm coronal MIP reformats through the lungs. For radiation dose reduction, the following was used: automated exposure control, adjustment of mA and/or kV according to patient size. COMPARISON: [facility], CR, XR CHEST 1V, 08/22/2023, 14:09. Outside Film, CT, CT CHEST ABDOMEN PELVIS WITH CONTRAST, 10/17/2019, 14:54. FINDINGS: Image quality: Excellent. CHEST: Lungs and pleura: As identified on chest x-ray, focal and confluent areas opacity are present within the left hemithorax. Emphysematous changes are present. Mediastinum: Heart size is normal. Coronary calcifications are present. No pericardial effusion. No mediastinal adenopathy by CT size criteria. Thoracic aorta and central pulmonary arteries are normal in size. Esophagus is distended with fluid and apparent food debris. Recommend correlation to previous postsurgical changes. Chest wall: No axillary or supraclavicular adenopathy by size criteria. Thyroid gland is unremarkable . ABDOMEN: Solid organs: Liver is normal in size. Hepatic cysts are present. Gallbladder is unremarkable . Pancreas is normal in contours. Spleen is normal in size. Right adrenal nodule is unchanged. Right kidney demonstrates no obstruction. Punctate inferior pole calculus. Left kidney is not visualized. Peritoneum and bowel: Small and large bowel loops are normal in caliber and wall thickness. No free fluid or air. Colonic diverticula are present without associated inflammatory change. Nodes and vessels: No retroperitoneal or mesenteric adenopathy by size criteria. Aorta and inferior vena cava are normal in size. Miscellaneous: No ventral hernias. PELVIS: Genitourinary: Bladder wall thickness is normal. Miscellaneous: Bilateral fat containing inguinal hernias are present. Bones: No suspicious bony lesions. No vertebral body compression fractures. IMPRESSION: Focal and confluent areas of opacity within the left hemithorax most suggestive of pneumonia. Recommend interval follow-up to document resolution. Diverticulosis. Dictated by: Opal Zhu M.D. on 08/22/2023 at 16:00 Approved by: Opal Zhu M.D. on 08/22/2023 at 16:04
[2023-08-22 14:45] LABS: Procalcitonin 0.13 ng/mL (<0.5)
--- NOTE | 2023-08-22 14:47 | ED_ITS ---
HPI - Fever General Chief Complaint: Weakness Stated Complaint: REACTION POST OP, Time Seen by Provider: 08/22/23 14:24 Source: patient Mode of arrival: Wheelchair History of Present Illness HPI Narrative: Patient brought here by for complaints of fever and chills. 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 Patient has history of gastric cancer with gastrectomy 4 years ago. Patient has been doing well. Yesterday and this morning no fever, was at baseline health. However on the way home after procedure had fever chills and aches. No shortness of breath. No known sick contacts. Patient has history of 1 kidney. No recent urinary complaints. However today has nausea. Related Data Home Medications Medication Instructions Recorded Confirmed Cbd Tincture 1 dose miscellaneous DIRECTED 05/29/19 08/22/23 albuterol sulfate 90 mcg/actuation 1 puff INH Q4HP PRN Shortness Of 05/29/19 08/22/23 aerosol inhaler (Proventil HFA) Breath epinephrine 0.3 mg/0.3 mL 0.3 mg IM PRN PRN Allergic Reaction 05/29/19 08/22/23 injection, auto-injector (EpiPen) fluticasone propionate 50 2 spray intranasal DAILY PRN 05/29/19 08/22/23 mcg/actuation nasal Allergy Symptoms spray,suspension (Flonase Allergy Relief) tiotropium 2.5 mcg-olodaterol 2.5 2 puff inhalation DAILY 05/29/19 08/22/23 mcg/actuation mist for inhalation (Stiolto Respimat) acetaminophen 325 mg capsule 1,000 mg PO BID 12/27/20 08/22/23 (Tylenol) omeprazole 40 mg capsule,delayed 40 mg PO DAILY 12/27/20 08/22/23 release tamsulosin 0.4 mg capsule 0.4 mg PO BID 08/22/23 08/22/23 Previous Rx's Medication Instructions Recorded alprazolam 0.25 mg tablet 0.25 mg PO BEDTIME PRN Insomnia 08/25/23 #15 tabs cefdinir 300 mg capsule 300 mg PO BID #20 caps 08/25/23 cefdinir 300 mg capsule 300 mg PO BID #20 caps 08/25/23 melatonin 3 mg tablet 6 mg (2 x 3 mg) PO BEDTIME PRN 08/25/23 Insomnia #60 tabs polyethylene glycol 3350 17 gram 17 gm PO DAILY PRN Constipation 08/25/23 oral powder packet #15 ea prednisone 5 mg tablet 15 mg (3 x 5 mg) PO DAILY #12 tabs 08/25/23 prednisone 5 mg tablet 15 mg (3 x 5 mg) PO DAILY #4 tabs 08/25/23 sennosides 8.6 mg tablet (senna) 8.6 mg PO BID PRN Constipation #30 08/25/23 tabs Allergies Allergy/AdvReac Type Severity Reaction Status Date / Time venom-wasp protein Allergy Severe LOCAL Verified 01/10/21 10:29 [WASP VENOM PROTEIN] SWELLING, HIVES chlorpheniramine Allergy Unknown TACHYCARDIA Verified 01/10/21 10:29 [From TUSSIONEX] ,HYPOTENSIO N hydrocodone [From TUSSIONEX] Allergy Unknown TACHYCARDIA Verified 01/10/21 10:29 ,HYPOTENSIO N adhesive AdvReac Severe Blister Verified 01/10/21 10:39 salmeterol [SALMETEROL] AdvReac Intermediate TACHYCARDIA Verified 01/10/21 10:29 venlafaxine [VENLAFAXINE] AdvReac Intermediate DIZZY, Verified 01/10/21 10:29 TINNITIS duloxetine [DULOXETINE] AdvReac Mild NAUSEA Verified 01/10/21 10:29 zolpidem [From AMBIEN] AdvReac Unknown I FORGOT Verified 01/10/21 10:29 WHO I WAS. Review of Systems Review of Systems Narrative: GENERAL: Pulse chills, fatigue, malaise, fever, sweats. HEENT: negative sinus pain, ear pain, sore throat RESPIRATORY: negative dyspnea, cough CARDIOVASCULAR: negative chest pain, palpitations GASTROINTESTINAL: + nausea, negative vomiting, abdominal pain : negative dysuria, frequency, hematuria MUSCULOSKELETAL: negative muscle or bony pain SKIN: negative rash, skin lesions NEUROLOGIC: negative weakness, numbness ROS Unobtainable: All systems reviewed & are unremarkable except as noted in HPI and below Patient History Medical History History of lung cancer COPD (chronic obstructive pulmonary disease) Surgical History S/P lobectomy of lung Family History Father Heart disease Hypertension Mental health problem COPD (chronic obstructive pulmonary disease) Mother Hypertension Sister Mental health problem COPD (chronic obstructive pulmonary disease) Social History household members: spouse Smoking Status: Former smoker alcohol intake: former Smoking Status: Former smoker alcohol intake frequency: other Substance Use Type: does not use Exam Narrative Exam Narrative: GENERAL: in no distress, not toxic not dyspneic HEAD: Normocephalic. EYES: Pupils equal round ENT: Mucous membranes moist. NECK: Trachea midline. CARDIOVASCULAR: Regular rate and rhythm RESPIRATORY: Speaking full sentences, not dyspneic, however there is left greater than right coarse lung sounds rhonchi. No wheezing GASTROINTESTINAL: Abdomen soft, non-tender EXTREMITIES: No gross deformities. BACK: No flank tenderness. NEURO: AOx4. SKIN: Warm and dry PSYCH: Not anxious, is cooperative Initial Vital Signs Initial Vital Signs: Vital Signs Temperature 102 F H 08/22/23 13:28 Pulse Rate 144 H 08/22/23 13:28 Respiratory Rate 18 08/22/23 13:28 Blood Pressure 119/70 08/22/23 13:28 Pulse Oximetry 95 08/22/23 13:28 Oxygen Delivery Method Room Air 08/22/23 13:28 Course Orders Ordered: Discontinued Medications Acetaminophen (Acetaminophen 325 Mg Tablet) 975 mg PO NOW ONE Stop: 08/22/23 14:48 Last Admin: 08/22/23 15:03 Dose: 975 mg Documented By: ABBY Acetaminophen (Acetaminophen 325 Mg Tablet) 650 mg PO Q6H PRN PRN Reason: Fever/Mild Pain (1-3) Last Admin: 08/25/23 05:51 Dose: 650 mg Documented By: MARIO ALBERTO Admin: 08/24/23 18:17 Dose: 650 mg Documented By: Admin: 08/23/23 21:00 Dose: 650 mg Documented By: SANYA Albuterol/Ipratropium (Albuterol/Ipratropium 3 Ml Ampul) 3 ml INH [id number] PRN PRN Reason: shortness of breath/wheezing Last Admin: 08/22/23 17:39 Dose: 3 ml Documented By: EDWINA Alprazolam (Alprazolam 0.25 Mg Tablet) 0.25 mg PO BEDTIME PRN PRN Reason: Insomnia Last Admin: 08/24/23 22:00 Dose: 0.25 mg Documented By: MARIO ALBERTO Doxycycline Hyclate (Doxycycline Hyclate 100 Mg Tablet) 100 mg PO BID REYNALDO Stop: 08/27/23 20:59 Last Admin: 08/25/23 09:29 Dose: 100 mg Documented By: Admin: 08/24/23 21:19 Dose: 100 mg Documented By: MARIO ALBERTO Admin: 08/24/23 08:31 Dose: 100 mg Documented By: Admin: 08/23/23 20:58 Dose: 100 mg Documented By: Admin: 08/23/23 08:25 Dose: 100 mg Documented By: Admin: 08/22/23 20:50 Dose: 100 mg Documented By: Enoxaparin Sodium (Enoxaparin 40 Mg/0.4 Ml Syringe) 40 mg SUBCUT DAILY [facility] Last Admin: 08/25/23 09:29 Dose: Not Given Documented By: Admin: 08/24/23 08:30 Dose: 40 mg Documented By: Admin: 08/23/23 08:25 Dose: 40 mg Documented By: Admin: 08/22/23 21:00 Dose: Not Given Documented By: Sodium Chloride (Normal Saline 0.9%) 1,000 mls @ 1,000 mls/hr IV BOLUS ONE Stop: 08/22/23 14:42 Last Infusion: 08/22/23 15:15 Dose: Infused Documented By: Admin: 08/22/23 14:23 Dose: 1,000 mls/hr Documented By: ABBY Ceftriaxone Sodium 2,000 mg/ (Sodium Chloride) 100 mls @ 200 mls/hr IV NOW ONE Stop: 08/22/23 14:55 Last Infusion: 08/22/23 15:39 Dose: Infused Documented By: Admin: 08/22/23 15:04 Dose: 200 mls/hr Documented By: ABBY Doxycycline Hyclate 100 mg/ (Sodium Chloride) 100 mls @ 100 mls/hr IV NOW ONE Stop: 08/22/23 15:36 Last Infusion: 08/22/23 16:50 Dose: Infused Documented By: Admin: 08/22/23 15:50 Dose: 100 mls/hr Documented By: DKB Sodium Chloride (Normal Saline 0.9%) 1,000 mls @ 100 mls/hr IV CONT REYNALDO Stop: 08/23/23 05:29 Last Admin: 08/23/23 05:05 Dose: 100 mls/hr Documented By: Infusion: 08/23/23 05:05 Dose: Infused Documented By: Admin: 08/22/23 20:51 Dose: 100 mls/hr Documented By: Infusion: 08/22/23 20:51 Dose: Infused Documented By: Admin: 08/22/23 18:23 Dose: 100 mls/hr Documented By: AMAYA Cefepime HCl 2 gm/ Sodium (Chloride) 100 mls @ 200 mls/hr IV Q12H REYNALDO Last Admin: 08/25/23 05:51 Dose: 200 mls/hr Documented By: MARIO ALBERTO Infusion: 08/24/23 21:19 Dose: Infused Documented By: MARIO ALBERTO Admin: 08/24/23 18:48 Dose: 200 mls/hr Documented By: Infusion: 08/24/23 07:15 Dose: Infused Documented By: Admin: 08/24/23 05:16 Dose: 200 mls/hr Documented By: Infusion: 08/23/23 17:30 Dose: Infused Documented By: Admin: 08/23/23 16:29 Dose: 200 mls/hr Documented By: Infusion: 08/23/23 05:41 Dose: Infused Documented By: Admin: 08/23/23 05:11 Dose: 200 mls/hr Documented By: Infusion: 08/22/23 21:42 Dose: Infused Documented By: Admin: 08/22/23 20:59 Dose: 200 mls/hr Documented By: Sodium Chloride (Normal Saline 0.9%) 250 mls @ 21 mls/hr IV Q24H PRN PRN Reason: Flush Last Admin: 08/23/23 16:29 Dose: 21 mls/hr Documented By: JASSI Ibuprofen (Ibuprofen 600 Mg Tablet) 600 mg PO Q6HR PRN PRN Reason: Fever/Mild Pain (1-3) Last Admin: 08/23/23 22:35 Dose: 600 mg Documented By: GIOVANA Melatonin (Melatonin 3 Mg Tablet) 6 mg PO BEDTIME PRN PRN Reason: Insomnia Naloxone HCl (Naloxone 0.4 Mg/Ml Vial) 0.2 mg IV Q2MIN PRN PRN Reason: Opiate Reversal Stiolto Respimat Inhaler (Tiotropium [place] & Olodaterol 2.5mcg/2.5mcg Per Actuation) 2 puff INH DAILY [facility] Last Admin: 08/25/23 09:29 Dose: 2 puff Documented By: Admin: 08/24/23 14:03 Dose: 2 puff Documented By: JASSI Ondansetron HCl (Ondansetron 4 Mg/2 Ml Inj) 4 mg IV NOW PRN PRN Reason: Nausea And Vomiting Ondansetron HCl (Ondansetron 4 Mg Odt) 4 mg SL NOW PRN PRN Reason: Nausea And Vomiting Ondansetron HCl (Ondansetron 4 Mg/2 Ml Inj) 4 mg IV Q6HR PRN PRN Reason: NV Pantoprazole Sodium (Pantoprazole Dr 40 Mg Tablet) 40 mg PO 0600 [facility] Last Admin: 08/25/23 05:51 Dose: 40 mg Documented By: MARIO ALBERTO Admin: 08/24/23 05:16 Dose: 40 mg Documented By: Admin: 08/23/23 05:16 Dose: 40 mg Documented By: Polyethylene Glycol (Polyethylene Glycol 3350 17 Gm Powd.Pack) 17 gm PO DAILY PRN PRN Reason: Constipation Prednisone (Prednisone 20 Mg Tablet) 40 mg PO DAILY [facility] Stop: 08/28/23 13:00 Last Admin: 08/24/23 12:28 Dose: 40 mg Documented By: JASSI Prednisone (Prednisone 5 Mg Tablet) 15 mg PO DAILY [facility] Last Admin: 08/25/23 09:29 Dose: 15 mg Documented By: JASSI Sennosides (Sennosides 8.6 Mg Tablet) 8.6 mg PO BID PRN PRN Reason: Constipation Tamsulosin HCl (Tamsulosin 0.4 Mg Capsule) 0.4 mg PO BID [facility] Last Admin: 08/25/23 09:29 Dose: 0.4 mg Documented By: Admin: 08/24/23 21:19 Dose: 0.4 mg Documented By: MARIO ALBERTO Admin: 08/24/23 08:30 Dose: 0.4 mg Documented By: Admin: 08/23/23 20:58 Dose: 0.4 mg Documented By: Admin: 08/23/23 08:24 Dose: 0.4 mg Documented By: Admin: 08/22/23 21:41 Dose: 0.4 mg Documented By: MS Vital Signs Vital signs: Vital Signs - 8 hr 08/22/23 13:28 08/22/23 13:52 08/22/23 14:00 Temperature 102 F H Pulse Rate 144 H 132 H Respiratory Rate 18 23 Blood Pressure 119/70 129/58 L Pulse Oximetry 95 92 Oxygen Delivery Method Room Air 08/22/23 14:00 08/22/23 14:30 08/22/23 14:30 Temperature 100.2 F H Pulse Rate 130 H 121 H Respiratory Rate 23 21 Blood Pressure 115/64 Pulse Oximetry 91 94 Oxygen Delivery Method 08/22/23 15:00 08/22/23 15:00 08/22/23 15:03 Temperature 100.2 F H Pulse Rate 121 H Respiratory Rate 17 Blood Pressure 103/66 Pulse Oximetry 92 Oxygen Delivery Method 08/22/23 15:30 08/22/23 16:00 08/22/23 16:30 Temperature Pulse Rate 120 H 121 H 120 H Respiratory Rate 28 H 26 H 23 Blood Pressure Pulse Oximetry 91 91 93 Oxygen Delivery Method MDM - Fever Lab Data 08/25/23 04:18 08/25/23 04:18 Labs: Lab Results 08/22/23 08/22/23 Range/Units 14:00 14:29 WBC 5.7 (4.5-11.0) X10^3/uL RBC 4.55 (4.5-5.9) X10^6/uL Hgb 15.3 (13.5-17.5) g/dL Hct 45.3 (41-53) % MCV 99.5 (80-100) fL MCH 33.6 (26-34) PG MCHC 33.7 (30-36) % RDW 14.0 (11.6-14.8) % Plt Count 244 (150-400) X10^3/uL Neut % (Auto) 94.4 H (50-75) % Lymph % (Auto) 3.2 L (25-40) % Irwin % (Auto) 2.2 L (3-14) % Eos % (Auto) 0.1 L (2-4) % Baso % (Auto) 0.1 (0-2) % Neut # (Auto) 5400 (2749-9548) /uL Lymph # (Auto) 200 L (9501-6045) /uL Irwin # (Auto) 100 (0-900) /uL Eos # (Auto) 0 (0-450) /uL Baso # (Auto) 0 (0-100) /uL PT 12.2 (10.1-12.7) SECONDS INR 1.1 (0.9-1.3) APTT 25 L (26-36) SECONDS Sodium 136 L (137-145) mmol/L Potassium 4.3 (3.4-5.1) mmol/L Chloride 101 (98-107) mmol/L Carbon Dioxide 23 (22-32) mmol/L BUN 20 (9-20) mg/dL Creatinine 1.12 (0.66-1.25) mg/dL Estimated GFR > 60 (>60) mL/min BUN/Creatinine Ratio 17.9 (6-22) Glucose 102 (80-110) mg/dL Lactate 1.5 (0.7-2.1) mmol/L Calcium 9.1 (8.4-10.2) mg/dL Total Bilirubin 0.7 (0.2-1.3) mg/dL AST 35 (17-59) IU/L ALT 23 (<50) IU/L Alkaline Phosphatase 81 (38-126) U/L Total Protein 7.4 (6.3-8.2) g/dL Albumin 4.4 (3.5-5.0) g/dL Globulin 3.0 (1.7-4.1) g/dL Albumin/Globulin Ratio 1.5 (1.0-2.8) Lipase 158 (23-300) U/L Procalcitonin 0.13 (<0.5) ng/mL Chlamy pneumoniae PCR Not detected (Not Detect) Adenovirus (PCR) Not detected (Not Detect) B.parapertussis DNA PCR Not detected (Not Detecte) Coronavirus OC43 (PCR) Not detected (Not Detect) Coronavirus HKU1 (PCR) Not detected (Not Detect) Coronavirus 229E (PCR) Not detected (Not Detect) SARS-CoV-2 (PCR) Not detected (Not Detecte) Coronavirus NL63 (PCR) Not detected (Not Detect) Human Metapneumovir PCR Not detected (Not Detect) Influenza Type A (PCR) Not detected (Not Detect) Influenza Type B (PCR) Not detected (Not Detect) M. pneumoniae (PCR) Not detected (Not Detect) Parainfluenza 1 (PCR) Not detected (Not Detect) Parainfluenza 2 (PCR) Not detected (Not Detect) Parainfluenza 3 (PCR) Not detected (Not Detect) Parainfluenza 4 (PCR) Not detected (Not Detect) RSV (PCR) Not detected (Not Detect) Entero/Rhino (PCR) Not detected (Not Detect) Imaging Data CT chest abdomen pelvis: Radiologist's Impression: [place] [address] CT Scan Report Signed Patient: Uli Silverio MR#: [id number] : 1945 Acct:[id number] Age/Sex: 78 / M Date of Service: 08/22/23 Loc: ED Accession Number: [id number] Procedure: CT chest abd pel wo con Ordering Provider: Cj Abreu MD PROCEDURE: CT CHEST ABD PEL WO CON INDICATIONS: Sepsis TECHNIQUE: After the administration of oral contrast, 5 mm thick sections acquired from the lung apices to the symphysis pubis. 5 mm thick coronal and sagittal reformats acquired, with additional 7 mm coronal MIP reformats through the lungs. For radiation dose reduction, the following was used: automated exposure control, adjustment of mA and/or kV according to patient size. COMPARISON: [facility], CR, XR CHEST 1V, 08/22/2023, 14:09. Outside Film, CT, CT CHEST ABDOMEN PELVIS WITH CONTRAST, 10/17/2019, 14:54. FINDINGS: Image quality: Excellent. CHEST: Lungs and pleura: As identified on chest x-ray, focal and confluent areas opacity are present within the left hemithorax. Emphysematous changes are present. Mediastinum: Heart size is normal. Coronary calcifications are present. No pericardial effusion. No mediastinal adenopathy by CT size criteria. Thoracic aorta and central pulmonary arteries are normal in size. Esophagus is distended with fluid and apparent food debris. Recommend correlation to previous postsurgical changes. Chest wall: No axillary or supraclavicular adenopathy by size criteria. Thyroid gland is unremarkable . ABDOMEN: Solid organs: Liver is normal in size. Hepatic cysts are present. Gallbladder is unremarkable . Pancreas is normal in contours. Spleen is normal in size. Right adrenal nodule is unchanged. Right kidney demonstrates no obstruction. Punctate inferior pole calculus. Left kidney is not visualized. Peritoneum and bowel: Small and large bowel loops are normal in caliber and wall thickness. No free fluid or air. Colonic diverticula are present without associated inflammatory change. Nodes and vessels: No retroperitoneal or mesenteric adenopathy by size criteria. Aorta and inferior vena cava are normal in size. Miscellaneous: No ventral hernias. PELVIS: Genitourinary: Bladder wall thickness is normal. Miscellaneous: Bilateral fat containing inguinal hernias are present. Bones: No suspicious bony lesions. No vertebral body compression fractures. IMPRESSION: Focal and confluent areas of opacity within the left hemithorax most suggestive of pneumonia. Recommend interval follow-up to document resolution. Diverticulosis. Dictated by: Opal Zhu M.D. on 08/22/2023 at 16:00 Approved by: Opal Zhu M.D. on 08/22/2023 at 16:04 [facility] Narrative Medical decision making narrative: Patient brought here by for complaints of fever and chills. 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 Patient has history of gastric cancer with gastrectomy 4 years ago. Patient has been doing well. Yesterday and this morning no fever, was at baseline health. However on the way home after procedure had fever chills and aches. No shortness of breath. No known sick contacts. Patient has history of 1 kidney. No recent urinary complaints. However today has nausea. After history and exam CBC CMP procalcitonin blood culture lactic acid chest x- ray EKG Rocephin [facility] CC: Fever Complicating co-morbidities: Cancer history, recent endoscopy Data collected from: Patient and Medical records reviewed: No recent visit for this complaint Differential considered: Includes but not limited to sepsis pneumonia viral infection esophageal perforation Exam documented above, pertinent findings include: Coarse lung sounds Lab Test results independently reviewed as above. Pertinent findings: WBC 5.7 hemoglobin 15.3 INR 1.1 sodium 136 potassium 4.3 lactic acid 1.5 AST 35 ALT 23 procalcitonin 0.13 BUN 20 creatinine 1.12 GFR greater than 60 Viral panel negative Independently reviewed EKG sinus tachycardia rate [address] elevation or depression Imaging studies independently reviewed: Chest x-ray patchy left infiltrates suggestive of pneumonia CT chest abdomen pelvis left side infiltrate Consultations: 4:[address] Whelan, hospitalist, who will see patient for admission. Treatments: Zofran Tylenol normal saline Rocephin doxycycline Re-evaluations: 3:08 p.m.. Patient doing well. Not requiring supplemental oxygen. Reviewed results with patient and . They do agree for admission. 5:47 p.m.. Reaffirmed with patient results and necessity for admission. He does understand. Discussion: Appropriate for admission. Patient meeting SIRS criteria. Will need IV antibiotics/Rocephin and observation. Patient and agree for admission. Reviewed with hospitalist agreed for admission Diagnosis: Community-acquired pneumonia Discharge Plan Departure Patient Disposition: Admitted as Observation Clinical Impression: Community acquired pneumonia Qualifiers: Laterality: left Lung location: unspecified part of lung Qualified Code(s): J 18.9 - Pneumonia, unspecified organism Admit Date/Time: 08/22/23 16:57 Admit Provider: Aamir Whelan
[2023-08-22] MEDS: ACETAMINOPHEN 325 MG TABLET 975 MG PO (15:03)
[2023-08-22] MEDS: cefTRIAXone 2,000 MG in SODIUM CHLORIDE 0.9% 100 ML 200 MG IV (15:04)
[2023-08-22 15:26] LABS: Adenovirus Not Detected (Not Detect); B. parapertussis Not Detected (Not Detecte); Bordetella pertussis Not Detected (Not Detect); Chlamydophila pneumoniae Not Detected (Not Detect); Coronavirus 229E Not Detected (Not Detect); Coronavirus HKU1 Not Detected (Not Detect); Coronavirus NL 63 Not Detected (Not Detect); Coronavirus OC43 Not Detected (Not Detect); Human Metapneumovirus Not Detected (Not Detect); Human Rhinovirus/Enterovirus Not Detected (Not Detect); Influenza A Not Detected (Not Detect); Influenza B Not Detected (Not Detect); Mycoplasma pneumoniae Not Detected (Not Detect); Parainfluenza Virus 1 Not Detected (Not Detect); Parainfluenza Virus 2 Not Detected (Not Detect); Parainfluenza Virus 3 Not Detected (Not Detect); Parainfluenza Virus 4 Not Detected (Not Detect); Respiratory Syncytial Virus Not Detected (Not Detect); SARS- CoV-2 Not Detected (Not Detecte)
[2023-08-22] MEDS: DOXYCYCLINE 100 MG in SODIUM CHLORIDE 0.9% 100 ML IV (15:50)
[2023-08-22] MEDS: ALBUTEROL/IPRATROPIUM 3 ML AMPUL INH (17:39)
[2023-08-22] MEDS: SODIUM CHLORIDE 0.9% 1,000 ML 100 ML IV ×2 (18:23→20:51)
--- NOTE | 2023-08-22 18:45 | P.HP_ITS ---
History of Present Illness History of Present Illness Chief complaint: REACTION POST OP, Narrative: Uli Silverio is a 78-year-old male with past medical history of lung cancer s/p right lower lobe resection, gastric cancer s/p partial gastrectomy, left kidney cancer s/p nephrectomym, GERD and COPD who underwent dilation at yesterday day presents with fever/chills and productive cough. Patient states he had a slight productive cough prior to his EGD yesterday but did not think much of it. His procedure went well and he was discharged home but today started feeling poorly with fever/chills. In the ED patient found to have left lower lobe infiltrate. Patient had fever up to 102 in ED. Started on Rocephin and doxy. Patient states he usually has a sore throat and cough from his gastrectomy. He did notice a slight runny nose recently. He denies chest pain, shortness of breath, abdominal pain or diarrhea. [facility] Medical History History of lung cancer COPD (chronic obstructive pulmonary disease) Surgical History S/P lobectomy of lung Family History Father Heart disease Hypertension Mental health problem COPD (chronic obstructive pulmonary disease) Mother Hypertension Sister Mental health problem COPD (chronic obstructive pulmonary disease) Social History household members: spouse Smoking Status: Former smoker alcohol intake: former Meds Home Medications and Allergies Home Medications Medication Instructions Recorded Confirmed Type Cbd Tincture 1 dose miscellaneous DIRECTED 05/29/19 01/10/21 History albuterol sulfate 90 mcg/actuation 1 puff INH Q4HP PRN Shortness Of 05/29/19 01/10/21 History aerosol inhaler (Proventil HFA) Breath epinephrine 0.3 mg/0.3 mL 0.3 mg IM PRN PRN Allergic Reaction 05/29/19 01/10/21 History injection, auto-injector (EpiPen) fluticasone propionate 50 2 spray intranasal DAILY PRN 05/29/19 01/10/21 History mcg/actuation nasal Allergy Symptoms spray,suspension (Flonase Allergy Relief) tiotropium 2.5 mcg-olodaterol 2.5 2 puff inhalation DAILY 05/29/19 01/10/21 History mcg/actuation mist for inhalation (Stiolto Respimat) acetaminophen 325 mg capsule 325 mg PO QID PRN Mild Pain (Scale 12/27/20 01/10/21 History (Tylenol) Score 1-4) ibuprofen 400 mg tablet 400 mg PO TID 12/27/20 01/10/21 History omeprazole 40 mg capsule,delayed 40 mg PO DAILY 12/27/20 01/10/21 History release Allergies Allergy/AdvReac Type Severity Reaction Status Date / Time venom-wasp protein Allergy Severe LOCAL Verified 01/10/21 10:29 [WASP VENOM PROTEIN] SWELLING, HIVES chlorpheniramine Allergy Unknown TACHYCARDIA Verified 01/10/21 10:29 [From TUSSIONEX] ,HYPOTENSIO N hydrocodone [From TUSSIONEX] Allergy Unknown TACHYCARDIA Verified 01/10/21 10:29 ,HYPOTENSIO N adhesive AdvReac Severe Blister Verified 01/10/21 10:39 salmeterol [SALMETEROL] AdvReac Intermediate TACHYCARDIA Verified 01/10/21 10:29 venlafaxine [VENLAFAXINE] AdvReac Intermediate DIZZY, Verified 01/10/21 10:29 TINNITIS duloxetine [DULOXETINE] AdvReac Mild NAUSEA Verified 01/10/21 10:29 zolpidem [From AMBIEN] AdvReac Unknown I FORGOT Verified 01/10/21 10:29 WHO I WAS. Review of Systems Review of Systems Narrative: All other systems reviewed with the patient and are negative unless otherwise stated. Exam Vital Signs (past 8 hours): - 08/22/23 13:28 08/22/23 13:52 08/22/23 14:00 Temperature 102 F H Pulse Rate 144 H 132 H Respiratory Rate 18 23 Blood Pressure 119/70 129/58 L Pulse Oximetry 95 92 Oxygen Delivery Method Room Air Oxygen Flow Rate 08/22/23 14:00 08/22/23 14:30 08/22/23 14:30 Temperature 100.2 F H Pulse Rate 130 H 121 H Respiratory Rate 23 21 Blood Pressure 115/64 Pulse Oximetry 91 94 Oxygen Delivery Method Oxygen Flow Rate 08/22/23 15:00 08/22/23 15:00 08/22/23 15:03 Temperature 100.2 F H Pulse Rate 121 H Respiratory Rate 17 Blood Pressure 103/66 Pulse Oximetry 92 Oxygen Delivery Method Oxygen Flow Rate 08/22/23 15:30 08/22/23 16:00 08/22/23 16:30 Temperature Pulse Rate 120 H 121 H 120 H Respiratory Rate 28 H 26 H 23 Blood Pressure Pulse Oximetry 91 91 93 Oxygen Delivery Method Oxygen Flow Rate 08/22/23 17:00 08/22/23 17:30 08/22/23 17:36 Temperature 98.8 F Pulse Rate 117 H 119 H Respiratory Rate 24 21 Blood Pressure Pulse Oximetry 92 93 Oxygen Delivery Method Oxygen Flow Rate 08/22/23 17:39 08/22/23 18:00 Temperature 97.7 F Pulse Rate 118 H 116 H Respiratory Rate 24 16 Blood Pressure 96/66 Pulse Oximetry 92 94 Oxygen Delivery Method Room Air Oxygen Flow Rate 0 Oxygen Delivery Method Room Air Oxygen Flow Rate 0 Narrative Exam Narrative: GEN: ill-appearing HEENT: moist mucous membranes, PERRL NECK: trachea midline, no JVD CV: regular rate and rhythm, no murmurs PULM: coarse breath sounds of left lower lobe, decreased breath sounds of right lower lobe at lobectomy site ABD: soft, nontender, nondistended, no organomegaly EXT: warm and well perfused with no edema NEURO: awake, alert, oriented, no focal deficits Objective Labs 08/22/23 14:00 08/22/23 14:00 Labs: Laboratory Results - last 24 hr 08/22/23 08/22/23 14:00 14:29 WBC 5.7 RBC 4.55 Hgb 15.3 Hct 45.3 MCV 99.5 MCH 33.6 MCHC 33.7 RDW 14.0 Plt Count 244 Neut % (Auto) 94.4 H Lymph % (Auto) 3.2 L [place] % (Auto) 2.2 L Eos % (Auto) 0.1 L Baso % (Auto) 0.1 Neut # (Auto) 5400 Lymph # (Auto) 200 L [place] # (Auto) 100 Eos # (Auto) 0 Baso # (Auto) 0 PT 12.2 INR 1.1 APTT 25 L Sodium 136 L Potassium 4.3 Chloride 101 Carbon Dioxide 23 BUN 20 Creatinine 1.12 Estimated GFR > 60 BUN/Creatinine Ratio 17.9 Glucose 102 Lactate 1.5 Calcium 9.1 Total Bilirubin 0.7 AST 35 ALT 23 Alkaline Phosphatase 81 Total Protein 7.4 Albumin 4.4 Globulin 3.0 Albumin/Globulin Ratio 1.5 Lipase 158 Procalcitonin 0.13 Chlamy pneumoniae PCR Not detected Adenovirus (PCR) Not detected B.parapertussis DNA PCR Not detected Coronavirus OC43 (PCR) Not detected Coronavirus HKU1 (PCR) Not detected Coronavirus 229E (PCR) Not detected SARS-CoV-2 (PCR) Not detected Coronavirus NL63 (PCR) Not detected Human Metapneumovir PCR Not detected Influenza Type A (PCR) Not detected Influenza Type B (PCR) Not detected M. pneumoniae (PCR) Not detected Parainfluenza 1 (PCR) Not detected Parainfluenza 2 (PCR) Not detected Parainfluenza 3 (PCR) Not detected Parainfluenza 4 (PCR) Not detected RSV (PCR) Not detected Entero/Rhino (PCR) Not detected Assessment & Plan Assessment & Plan narrative: # left lower lobe pneumonia -unclear if patient developed PNA prior to EGD or from procedure yesterday at for gastric dilation -we will cover with cefepime and doxy due to recent hospital procedure -q.4 pulse ox, currently not requiring supplemental oxygen -check MRSA swab -check sputum culture # history of multiple cancers including gastric s/p gastrectomy, lung cancer s/p right lower lobectomy and left renal cancer s/p nephrectomy # GERD -continue PPI Code status is full code. DVT prophylaxis with Lovenox. Proxy is spouse Patricia Arias. I have reviewed home meds and used all available resources to reconcile the home meds. Case discussed with ED physician/APC and patient will be admitted to the hospitalist service for further workup and management. This patient will be admitted as inpatient and will require greater then 2 midnights of hospital time to treat pneumonia.
[2023-08-22 18:47] LABS: Magnesium 1.8 mg/dL (1.6-2.3)
[2023-08-22] MEDS: DOXYCYCLINE HYCLATE 100 MG TABLET PO (20:50)
[2023-08-22] MEDS: CEFEPIME 2 GM in SODIUM CHLORIDE 0.9% 100 ML IV (20:59)
[2023-08-22] MEDS: TAMSULOSIN 0.4 MG CAPSULE PO (21:41)
[2023-08-22 23:03] LABS: MRSA (Nasal) PCR Not Detected (Not Detect)
[2023-08-23] VITALS (11 sets, daily range): BP systolic 106–141; BP diastolic 57–82; PULSE 77–98; RESP 17–20; TEMP 36.6–37.2; O2SAT 94–96
[2023-08-23 04:47] LABS: Add Manual Diff / Slide Review NO; Basophils Absolute Auto 0 /uL (0-100); Basophils Percent Auto 0.3 % (0-2); Eosinophils Absolute Auto 0 /uL (0-450); Hematocrit 38.5 % (41-53); Hemoglobin 13.1 g/dL (13.5-17.5); Lymphocytes Absolute Auto 500 /uL (1100-4500); Lymphocytes Percent Auto 4.4 % (25-40); Mean Corpuscular Hemoglobin 33.6 PG (26-34); Mean Corpuscular Volume 98.9 fL (80-100); Monocytes Absolute Auto 700 /uL (0-900); Monocytes Percent Auto 6.9 % (3-14); Neutrophils Absolute Auto 9200 /uL (1500-7000); Neutrophils Percent Auto 88.4 % (50-75); Platelet Count 205 X10^3/uL (150-400); Red Blood Cell Count 3.89 X10^6/uL (4.5-5.9); Red Cell Distribution Width 14.2 % (11.6-14.8); White Blood Cell Count 10.4 X10^3/uL (4.5-11.0)
[2023-08-23] MEDS: SODIUM CHLORIDE 0.9% 1,000 ML 100 ML IV (05:05)
[2023-08-23 05:08] LABS: Procalcitonin 4.98 ng/mL (<0.5)
[2023-08-23] MEDS: CEFEPIME 2 GM in SODIUM CHLORIDE 0.9% 100 ML IV ×2 (05:11→16:29)
[2023-08-23 05:16] LABS: BUN Creatinine Ratio 22.2 (6-22); Blood Urea Nitrogen 24 mg/dL (9-20); Calcium 8.3 mg/dL (8.4-10.2); Carbon Dioxide 22 mmol/L (22-32); Chloride 106 mmol/L (98-107); Estimated Glomerular Filt Rate > 60 mL/min (>60); Glucose 146 mg/dL (80-110); HEMOLYSIS < 15 (0-50); Potassium 4.3 mmol/L (3.4-5.1); Sodium 135 mmol/L (137-145)
[2023-08-23] MEDS: PANTOPRAZOLE DR 40 MG TABLET PO (05:16)
[2023-08-23] MEDS: TAMSULOSIN 0.4 MG CAPSULE PO ×2 (08:24→20:58)
[2023-08-23] MEDS: DOXYCYCLINE HYCLATE 100 MG TABLET PO ×2 (08:25→20:58)
[2023-08-23] MEDS: ENOXAPARIN 40 MG/0.4 ML SYRINGE SUBCUT (08:25)
--- NOTE | 2023-08-23 10:55 | CM.DANOTE ---
Initial DCP Assessment Note Pt is a 78 yo male, resident of [place], past medical history of lung cancer s/p right lower lobe resection, gastric cancer s/p partial gastrectomy, left kidney cancer s/p nephrectomy. Presents with fever/chills and productive cough per record review PCP: Jordy Landry Payer: [facility] Reviewed chart, met with patient to introduce self and role. Patient lives on [place] w/spouse and is independent in all regards. Patient anticipates returning home w/supportive spouse upon discharge and currently denying needs from this FULL STACK ENGINEER. No barriers identified at this time to patient's safe discharge home w/family to assist; close outpatient f/u recommended. CM team will plan to follow closely in case any DC needs or concerns arise. COLEEN Lopez Discharge Planning/Care Management CM Discharge Assessment Start: 08/23/23 10:47 Freq: Status: Active Protocol: Document 08/23/23 10:47 WILL (Rec: 08/23/23 10:55 WILL [id number]) Discharge Planning Assessment Assigned Embedded Systems Designer COLEEN Smith DPOA/Assigned Designee Name Patricia Hernandez, spouse Contact Information [phone] Advance Directives? Yes Advance Directives on File No History Provided By Patient,Medical Record Prior Living Arrangements House Household Members spouse Type of transporation used prior to Drives own vehicle admit Independent with ADL's Yes Is patient alert and oriented? Yes Comment Home Barriers to Discharge No Discharge Plan Home Transportation Arrangement Friends and family Referrals Initiated None needed Whiteboard Updated in Patient Room with Yes name and ext. # of Embedded Systems Designer
[2023-08-23] MEDS: SODIUM CHLORIDE 0.9% 250 ML 21 ML IV (16:29)
--- NOTE | 2023-08-23 16:58 | PM.PN.1 ---
Subjective Subjective Interval history: Patient improving some but still not feeling great. Has productive cough now. Exam Vital Signs (past 8 hours): - 08/23/23 09:00 08/23/23 12:00 08/23/23 13:00 Temperature 98.6 F Pulse Rate 77 Respiratory Rate 18 Blood Pressure 127/73 Pulse Oximetry 96 96 96 Oxygen Delivery Method Room Air Room Air Oxygen Flow Rate 0 0 0 08/23/23 16:00 Temperature 98.9 F Pulse Rate 87 Respiratory Rate 17 Blood Pressure 141/57 H Pulse Oximetry 94 Oxygen Delivery Method Oxygen Flow Rate 0 Oxygen Delivery Method Room Air Oxygen Flow Rate 0 Narrative Exam Narrative: GEN: ill-appearing HEENT: moist mucous membranes, PERRL NECK: trachea midline, no JVD CV: regular rate and rhythm, no murmurs PULM: coarse breath sounds of left lower lobe, decreased breath sounds of right lower lobe at lobectomy site ABD: soft, nontender, nondistended, no organomegaly EXT: warm and well perfused with no edema NEURO: awake, alert, oriented, no focal deficits Objective Labs 08/23/23 04:21 08/23/23 04:21 Labs: Laboratory Results - last 24 hr 08/22/23 08/22/23 08/23/23 18:29 21:44 04:21 WBC 10.4 D RBC 3.89 L Hgb 13.1 L Hct 38.5 L MCV 98.9 MCH 33.6 MCHC 34.0 RDW 14.2 Plt Count 205 Neut % (Auto) 88.4 H Lymph % (Auto) 4.4 L [place] % (Auto) 6.9 Eos % (Auto) 0.0 L Baso % (Auto) 0.3 Neut # (Auto) 9200 H Lymph # (Auto) 500 L [place] # (Auto) 700 Eos # (Auto) 0 Baso # (Auto) 0 Sodium 135 L Potassium 4.3 Chloride 106 Carbon Dioxide 22 BUN 24 H Creatinine 1.08 Estimated GFR > 60 BUN/Creatinine Ratio 22.2 H Glucose 146 H Calcium 8.3 L Magnesium 1.8 Procalcitonin 4.98 H Nasal Screen MRSA (PCR) Not detected PFSH Medical History History of lung cancer COPD (chronic obstructive pulmonary disease) Surgical History S/P lobectomy of lung Family History Father Heart disease Hypertension Mental health problem COPD (chronic obstructive pulmonary disease) Mother Hypertension Sister Mental health problem COPD (chronic obstructive pulmonary disease) Social History household members: spouse Smoking Status: Former smoker alcohol intake: former Assessment & Plan Assessment & Plan narrative: # left lower lobe pneumonia -unclear if patient developed PNA prior to EGD or from procedure yesterday at for gastric dilation -we will cover with cefepime and doxy due to recent hospital procedure -q.4 pulse ox, currently not requiring supplemental oxygen -check MRSA swab -check sputum culture # history of multiple cancers including gastric s/p gastrectomy, lung cancer s/p right lower lobectomy and left renal cancer s/p nephrectomy # GERD -continue PPI Code status is full code. DVT prophylaxis with Lovenox. Proxy is spouse Patricia Arias. I have reviewed home meds and used all available resources to reconcile the home meds. Dispo: Home on 08/24 likely with po abx. Quality VTE Deep Vein Thrombosis/Pulmonary Embolism Present on Admission: No
[2023-08-23] MEDS: ACETAMINOPHEN 325 MG TABLET 650 MG PO (21:00)
[2023-08-23] MEDS: IBUPROFEN 600 MG TABLET PO (22:35)
[2023-08-24] VITALS (9 sets, daily range): BP systolic 106–134; BP diastolic 62–80; PULSE 69–76; RESP 16–20; TEMP 35.9–36.6; O2SAT 94–98
[2023-08-24] MEDS: CEFEPIME 2 GM in SODIUM CHLORIDE 0.9% 100 ML IV ×2 (05:16→18:48)
[2023-08-24] MEDS: PANTOPRAZOLE DR 40 MG TABLET PO (05:16)
[2023-08-24 05:21] LABS: Add Manual Diff / Slide Review NO; Basophils Absolute Auto 0 /uL (0-100); Basophils Percent Auto 0.1 % (0-2); Eosinophils Absolute Auto 0 /uL (0-450); Eosinophils Percent Auto 0.3 % (2-4); Hematocrit 35.5 % (41-53); Lymphocytes Absolute Auto 500 /uL (1100-4500); Lymphocytes Percent Auto 4.6 % (25-40); Mean Corpuscular HGB Conc 33.7 % (30-36); Mean Corpuscular Hemoglobin 33.4 PG (26-34); Mean Corpuscular Volume 99.2 fL (80-100); Monocytes Absolute Auto 700 /uL (0-900); Monocytes Percent Auto 6.2 % (3-14); Neutrophils Absolute Auto 9900 /uL (1500-7000); Neutrophils Percent Auto 88.8 % (50-75); Platelet Count 168 X10^3/uL (150-400); Red Blood Cell Count 3.58 X10^6/uL (4.5-5.9); Red Cell Distribution Width 14.2 % (11.6-14.8); White Blood Cell Count 11.1 X10^3/uL (4.5-11.0)
[2023-08-24 05:28] LABS: BUN Creatinine Ratio 22.3 (6-22); Blood Urea Nitrogen 21 mg/dL (9-20); Calcium 8.5 mg/dL (8.4-10.2); Carbon Dioxide 21 mmol/L (22-32); Chloride 105 mmol/L (98-107); Estimated Glomerular Filt Rate > 60 mL/min (>60); Glucose 94 mg/dL (80-110); HEMOLYSIS < 15 (0-50); Potassium 3.9 mmol/L (3.4-5.1); Sodium 132 mmol/L (137-145)
[2023-08-24 05:45] LABS: Procalcitonin 2.92 ng/mL (<0.5)
[2023-08-24] MEDS: ENOXAPARIN 40 MG/0.4 ML SYRINGE SUBCUT (08:30)
[2023-08-24] MEDS: TAMSULOSIN 0.4 MG CAPSULE PO ×2 (08:30→21:19)
[2023-08-24] MEDS: DOXYCYCLINE HYCLATE 100 MG TABLET PO ×2 (08:31→21:19)
--- NOTE | 2023-08-24 11:34 | P.PN_ITS ---
Subjective Subjective Interval history: Patient improving some but still not feeling great. Has productive cough now and sputum is bloody tinged. Remains on IV antibiotics. Concerned he is not on Stiolto, one of his home medication. Exam Vital Signs (past 8 hours): - 08/24/23 04:56 08/24/23 09:00 08/24/23 09:02 Temperature 96.6 F L 98 F Pulse Rate 69 72 Respiratory Rate 18 16 Blood Pressure 106/65 110/62 Pulse Oximetry 94 97 97 Oxygen Delivery Method Room Air Oxygen Flow Rate 0 0 Oxygen Delivery Method Room Air Oxygen Flow Rate 0 Narrative Exam Narrative: GEN: ill-appearing HEENT: moist mucous membranes, PERRL NECK: trachea midline, no JVD CV: regular rate and rhythm, no murmurs PULM: coarse breath sounds of left lower lobe concerning for some COPD exacerbation, decreased breath sounds of right lower lobe at lobectomy site ABD: soft, nontender, nondistended, no organomegaly EXT: warm and well perfused with no edema NEURO: awake, alert, oriented, no focal deficits Objective Labs 08/24/23 04:21 08/24/23 04:21 Labs: Laboratory Results - last 24 hr 08/24/23 04:21 WBC 11.1 H RBC 3.58 L Hgb 12.0 L Hct 35.5 L MCV 99.2 MCH 33.4 MCHC 33.7 RDW 14.2 Plt Count 168 Neut % (Auto) 88.8 H Lymph % (Auto) 4.6 L [place] % (Auto) 6.2 Eos % (Auto) 0.3 L Baso % (Auto) 0.1 Neut # (Auto) 9900 H Lymph # (Auto) 500 L [place] # (Auto) 700 Eos # (Auto) 0 Baso # (Auto) 0 Sodium 132 L Potassium 3.9 Chloride 105 Carbon Dioxide 21 L BUN 21 H Creatinine 0.94 Estimated GFR > 60 BUN/Creatinine Ratio 22.3 H Glucose 94 Calcium 8.5 Procalcitonin 2.92 H PFSH Medical History History of lung cancer COPD (chronic obstructive pulmonary disease) Surgical History S/P lobectomy of lung Family History Father Heart disease Hypertension Mental health problem COPD (chronic obstructive pulmonary disease) Mother Hypertension Sister Mental health problem COPD (chronic obstructive pulmonary disease) Social History household members: spouse Smoking Status: Former smoker alcohol intake: former Assessment & Plan Assessment & Plan narrative: # left lower lobe pneumonia -unclear if patient developed PNA prior to EGD or from procedure yesterday at for gastric dilation -we will cover with cefepime and doxy due to recent hospital procedure -q.4 pulse ox, currently not requiring supplemental oxygen -check MRSA swab -check sputum culture - result not final yet # concern for assiociated COPD exacerbation -add prednisone 40 mg daily for 5 days # history of asthma - patient on albuterol prn, add home medication of Stiolto # history of multiple cancers including gastric s/p gastrectomy, lung cancer s/p right lower lobectomy and left renal cancer s/p nephrectomy # GERD -continue PPI Code status is full code. DVT prophylaxis with Lovenox. Proxy is spouse Patricia Bermudez Peng VTE Deep Vein Thrombosis/Pulmonary Embolism Present on Admission: No
[2023-08-24] MEDS: predniSONE 20 MG TABLET 40 MG PO (12:28)
[2023-08-24] MEDS: ACETAMINOPHEN 325 MG TABLET 650 MG PO (18:17)
[2023-08-24] MEDS: ALPRAZolam 0.25 MG TABLET PO (22:00)
[2023-08-25 01:00] VITALS: BP 134/79; PULSE 66; RESP 18; TEMP 36; O2SAT 96; O2SAT 97
[2023-08-25 04:43] LABS: Add Manual Diff / Slide Review NO; Basophils Absolute Auto 0 /uL (0-100); Basophils Percent Auto 0.2 % (0-2); Eosinophils Absolute Auto 0 /uL (0-450); Eosinophils Percent Auto 0.1 % (2-4); Hematocrit 35.8 % (41-53); Hemoglobin 12.1 g/dL (13.5-17.5); Lymphocytes Absolute Auto 700 /uL (1100-4500); Lymphocytes Percent Auto 5.5 % (25-40); Mean Corpuscular HGB Conc 33.7 % (30-36); Mean Corpuscular Hemoglobin 33.4 PG (26-34); Monocytes Absolute Auto 700 /uL (0-900); Monocytes Percent Auto 5.6 % (3-14); Neutrophils Absolute Auto 10700 /uL (1500-7000); Neutrophils Percent Auto 88.6 % (50-75); Platelet Count 199 X10^3/uL (150-400); Red Blood Cell Count 3.62 X10^6/uL (4.5-5.9); Red Cell Distribution Width 13.9 % (11.6-14.8); White Blood Cell Count 12.1 X10^3/uL (4.5-11.0)
[2023-08-25 05:00] VITALS: BP 162/93; PULSE 85; RESP 20; TEMP 36.5; O2SAT 95; O2SAT 97
[2023-08-25 05:01] LABS: BUN Creatinine Ratio 23.5 (6-22); Blood Urea Nitrogen 20 mg/dL (9-20); Calcium 8.7 mg/dL (8.4-10.2); Carbon Dioxide 21 mmol/L (22-32); Chloride 104 mmol/L (98-107); Estimated Glomerular Filt Rate > 60 mL/min (>60); Glucose 100 mg/dL (80-110); HEMOLYSIS 50 (0-50); Potassium 3.8 mmol/L (3.4-5.1); Sodium 131 mmol/L (137-145)
[2023-08-25 05:17] LABS: Procalcitonin 1.52 ng/mL (<0.5)
[2023-08-25] MEDS: CEFEPIME 2 GM in SODIUM CHLORIDE 0.9% 100 ML IV (05:51)
[2023-08-25] MEDS: ACETAMINOPHEN 325 MG TABLET 650 MG PO (05:51)
[2023-08-25] MEDS: PANTOPRAZOLE DR 40 MG TABLET PO (05:51)
[2023-08-25 08:46] VITALS: BP 122/68; PULSE 78; RESP 16; TEMP 37.1; O2SAT 97
[2023-08-25 09:00] VITALS: O2SAT 97
[2023-08-25] MEDS: DOXYCYCLINE HYCLATE 100 MG TABLET PO (09:29)
[2023-08-25] MEDS: predniSONE 5 MG TABLET 15 MG PO (09:29)
[2023-08-25] MEDS: TAMSULOSIN 0.4 MG CAPSULE PO (09:29)
--- NOTE | 2023-08-25 16:49 | P.DS_ITS ---
History of Present Illness History of Present Illness Date Patient Seen: 08/25/23 Chief complaint: REACTION POST OP, Narrative: Patient feeling much better and eager to go home. Breathing well without compromise. Discharge Providers Provider Date of admission: 08/22/23 16:57 Discharge Date: 08/25/23 Primary care physician: Ernesto Dow Discharge provider: Laila Damon MD Summary Hospital Course Discharge Diagnosis: Left lower lobe pneumonia Concern for COPD exacerbation History of asthma History of multiple cancers: gastric s/p gastrectomy, lung cancer s/p right lower lobectomy and left renal cancer s/p nephrectomy GERD Post EGD dilatation Fever and chills Productive cough Rhinorrhea Leukocytosis Hyponatremia Elevated procalcitonin Hospital Course: Uli Silverio is a 78-year-old male with past medical history of lung cancer s/p right lower lobe resection, gastric cancer s/p partial gastrectomy, left kidney cancer s/p nephrectomym, GERD and COPD who underwent dilation at yesterday day presents with fever/chills and productive cough. Patient states he had a slight productive cough prior to his EGD yesterday but did not think much of it. His procedure went well and he was discharged home but today started feeling poorly with fever/chills. In the ED patient found to have left lower lobe infiltrate. Patient had fever up to 102 in ED. Started on Rocephin and doxy. Patient states he usually has a sore throat and cough from his gastrectomy. He did notice a slight runny nose recently. He denies chest pain, shortness of breath, abdominal pain or diarrhea. Patient was noted to have leukocytosis during the hospital stay, as well as hyponatremia that was reasonably stable,and elelvated procalcitonin that trended downward. Blood cultures were negative and sputum culture is still pending at the time of discharge. Patient consistently clinically improved. He was discharge with paper prescriptions so that he could fill them in [place] prior to [place] the ferry to [facility] if he had time. He was to have close followup with Dr. Ernseto Dow within a week. Discharge antibiotic was Cefdinir 300 mg BID for 10 days. While in hospital he was given one dose fo ceftriaxone 2 mg, followed by Cefepime 2 gm IV every 12 hours as well as Doxycycline initial dose of 100 mg IV followed by 100 mg BID p.o. For concern about COPD exacerbation patient wshenrietta started on prednisone 40 mg daily and this was decreased to 15 mg daily for 5 days on discharge due to side effects of agitation and hypertension from the prednisone. Status at Discharge Cognitive/behavioral status at discharge: at baseline, oriented Functional status at discharge: independent ambulation Overall status at discharge: patient is progressing back to baseline Time Spent with Patient Time spent: Greater than 30 minutes Exam Vital Signs (past 8 hours): - 08/25/23 09:00 Pulse Oximetry 97 Oxygen Delivery Method Room Air Oxygen Flow Rate 0 Oxygen Delivery Method Room Air Oxygen Flow Rate 0 Objective Labs 08/25/23 04:18 08/25/23 04:18 Labs: Laboratory Results - last 24 hr 08/25/23 04:18 WBC 12.1 H RBC 3.62 L Hgb 12.1 L Hct 35.8 L MCV 99.0 MCH 33.4 MCHC 33.7 RDW 13.9 Plt Count 199 Neut % (Auto) 88.6 H Lymph % (Auto) 5.5 L [place] % (Auto) 5.6 Eos % (Auto) 0.1 L Baso % (Auto) 0.2 Neut # (Auto) 41212 H Lymph # (Auto) 700 L [place] # (Auto) 700 Eos # (Auto) 0 Baso # (Auto) 0 Sodium 131 L Potassium 3.8 Chloride 104 Carbon Dioxide 21 L BUN 20 Creatinine 0.85 Estimated GFR > 60 BUN/Creatinine Ratio 23.5 H Glucose 100 Calcium 8.7 Procalcitonin 1.52 H PFSH Medical History History of lung cancer COPD (chronic obstructive pulmonary disease) Surgical History S/P lobectomy of lung Family History Father Heart disease Hypertension Mental health problem COPD (chronic obstructive pulmonary disease) Mother Hypertension Sister Mental health problem COPD (chronic obstructive pulmonary disease) Social History household members: spouse Smoking Status: Former smoker alcohol intake: former Discharge Plan Discharge Plan Patient Disposition: Home Provider Discharge Comment: Follow-up with Dr. Ernesto Dow in [place] this coming week and change the Primary Provider on your Hospital file to be correct. Of note the discharge prescription had trouble sending electronically and some appear duplicated on the medical record but patient was given paper copies of correct prescriptions. Discharge orders & Medications Prescriptions: New sennosides [senna] 8.6 mg Tablet 8.6 mg PO BID PRN (Reason: Constipation) Qty: 30 0RF polyethylene glycol 3350 17 gram Powder In Packet 17 gm PO DAILY PRN (Reason: Constipation) Qty: 15 0RF prednisone 5 mg Tablet 15 mg PO DAILY Qty: 4 0RF melatonin 3 mg Tablet 6 mg PO BEDTIME PRN (Reason: Insomnia) Qty: 60 0RF alprazolam 0.25 mg Tablet 0.25 mg PO BEDTIME PRN (Reason: Insomnia) Qty: 15 0RF cefdinir 300 mg capsule 300 mg PO BID Qty: 20 0RF cefdinir 300 mg capsule 300 mg PO BID Qty: 20 0RF prednisone 5 mg tablet 15 mg PO DAILY Qty: 12 0RF Continued acetaminophen [Tylenol] 325 mg Capsule 1,000 mg PO BID omeprazole 40 mg Capsule,Delayed Release(Dr/Ec) 40 mg PO DAILY epinephrine [EpiPen] 0.3 mg/0.3 mL Auto-Injector 0.3 mg IM PRN PRN (Reason: Allergic Reaction) Stiolto Respimat 2.5-2.5 mcg/actuation Mist 2 puff inhalation DAILY Cbd Tincture 1 dose miscellaneous DIRECTED albuterol sulfate [Proventil HFA] 90 MCG/PUFF HFA aerosol inhaler 1 puff INH Q4HP PRN (Reason: Shortness Of Breath) fluticasone propionate [Flonase Allergy Relief] 9.9 ML spray,suspension 2 spray Intranasal DAILY PRN (Reason: Allergy Symptoms) tamsulosin 0.4 mg Capsule 0.4 mg PO BID Follow up/Referrals: Jordy Landry MD [Primary Care Provider] - Visit Report/Discharge Packet Stand Alone Forms: Patient Portal/API, Stroke Signs & Symptoms Discharge Data Primary Care Provider: Jordy Lanrdy Quality VTE Deep Vein Thrombosis/Pulmonary Embolism Present on Admission: No
== END 2023-08-25 10:15 | disposition home or self-care (01) | DRG 178 ==
LOC: ED 15:09 → AC 08-23 07:09
PROVIDERS: Admitting Provider Student in an Organized Health Care Education/Training Program; Emergency Provider Emergency Medicine; PCP Family Medicine; Referring Provider Emergency Medicine; Visit Provider Student in an Organized Health Care Education/Training Program
DX: J69.0 Pneumonitis due to inhalation of food and vomit (principal); E87.1 Hypo-osmolality and hyponatremia; J44.1 Chronic obstructive pulmonary disease with (acute) exacerbation; K21.9 Gastro-esophageal reflux disease without esophagitis; R79.89 Other specified abnormal findings of blood chemistry; J15.69 Pneumonia due to other Gram-negative bacteria; Z85.528 Personal history of other malignant neoplasm of kidney; Z85.028 Personal history of other malignant neoplasm of stomach; Z85.118 Personal history of other malignant neoplasm of bronchus and lung; Z90.5 Acquired absence of kidney; Z90.3 Acquired absence of stomach [part of]; Z87.891 Personal history of nicotine dependence; Z90.2 Acquired absence of lung [part of]
CPT/HCPCS: 36415; 71045; 71250; 74176; 80048; 80053; 83605; 83690; 83735; 84145; 85025; 85610; 85730; 87040; 87070; 87077; 87205; 87633; 87797; 93005; 94640; 96365; 96367; 99284; J0692; J0696; J1650

== ENCOUNTER 2024-01-20 12:30 | Outpatient (RCR) | payer OTHER, SELFPAY ==
[2023-08-22 21:19] VITALS: BMI 25.2
== END 2024-01-20 14:30 ==
LOC: PUL 12:30
PROVIDERS: PCP Family Medicine; Referring Provider Family Medicine; Visit Provider Family Medicine
DX: Z85.118 Personal history of other malignant neoplasm of bronchus and lung (principal)
CPT/HCPCS: 94625; 94626

== ENCOUNTER → 2024-05-06 10:56 | Outpatient (CLI) | payer OTHER, SELFPAY ==
[2023-08-22 21:19] VITALS: BMI 25.2
[2024-05-06 12:10] LABS: Appearance Urine UA CLOUDY; Bilirubin Urine UA NEGATIVE (NEGATIVE); Color Urine UA YELLOW; Glucose Urine UA NEGATIVE (Negative); Ketones Urine UA NEGATIVE (NEGATIVE); Leukocyte Esterase Urine UA 2+ (NEGATIVE); Nitrite Urine UA POSITIVE (Negative); Occult Blood Urine UA 2+ (Negative); Protein Urine UA 1+ (Negative); Specific Gravity Urine UA 1.015 (1.000-1.035); Urobilinogen Urine UA 0.2 E.U./dL (0.2); pH Urine UA 5.5 (4.5-8.0)
[2024-05-06 12:23] LABS: RBC Urine 1-5/HPF (0-5/HPF); Urine Volume 10mL (spun)
[2024-05-06 12:24] LABS: Bacteria Urine None Seen; Culture Indicated Urine Specimen Cultured; Squamous Epithelial Cell Urine None Seen (0-5/HPF); WBC Urine >100/HPF (0-5/HPF)
== END ==
PROVIDERS: PCP Family Medicine
DX: R82.90 Unspecified abnormal findings in urine (principal)
CPT/HCPCS: 81001; 87077; 87086; 87147; 87186

== ENCOUNTER 2024-11-11 07:30 | Outpatient (RCR) | payer OTHER, MEDICARE, SELFPAY ==
[2023-08-22 21:19] VITALS: BMI 25.2
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
== END 2024-11-18 10:45 | disposition home or self-care (01) ==
LOC: PHYS 07:30
PROVIDERS: Family Provider Family Medicine; PCP Family Medicine; Referring Provider Family Medicine; Visit Provider Family Medicine
DX: S32.000D Wedge compression fracture of unspecified lumbar vertebra, subsequent encounter for fracture with routine healing (principal); S92.355D Nondisplaced fracture of fifth metatarsal bone, left foot, subsequent encounter for fracture with routine healing
CPT/HCPCS: 97110; 97112; 97116; 97140; 97162; 97530; 97535

== ENCOUNTER 2025-03-23 11:50 | Observation (INO) | payer OTHER, SELFPAY ==
[2023-08-22 21:19] VITALS: BMI 25.2
[2025-03-23] VITALS (30 sets, daily range): BP systolic 83–219; BP diastolic 46–113; PULSE 55–129; RESP 15–39; TEMP 36.3–36.8; O2SAT 93–100; BMI 25.1
--- NOTE | 2025-03-23 | DI.RAD.S_ITS ---
PROCEDURE: XR ABDOMEN 1V INDICATIONS: STENT PLACEMENT TECHNIQUE: 2 fluoroscopic images obtained in the operating room COMPARISON: None. IMPRESSION: There is a right nephroureteral stent extending in the superior calyx and the bladder region. There is moderate right hydronephrosis. Dictated by: Matteo Hauser M.D. on 03/23/2025 at 19:50 Approved by: Matteo Hauser M.D. on 03/23/2025 at 19:51
--- NOTE | 2025-03-23 12:06 | EKG_ITS ---
[facility] [address] [address] Test Date: 2025-03-23 Pat Name: Uli Silverio Department: [facility] Room: Gender: Male [employer] Aide: : 1945 Requested By: Order Number: [id number] Reading MD: Deepak Hampton Measurements Intervals [place] Rate: 63 P: 25 OK: 196 QRS: -23 QRSD: 92 T: 33 QT: 430 QTc: 440 Interpretive Statements Normal sinus rhythm Electronically Signed On 03-25-2025 17:24:22 PDT by Deepak Hampton
[2025-03-23 12:20] LABS: Add Manual Diff / Slide Review NO; Basophils Absolute Auto 100 /uL (0-100); Basophils Percent Auto 0.8 % (0-2); Eosinophils Absolute Auto 0 /uL (0-450); Eosinophils Percent Auto 0.5 % (2-4); Hematocrit 47.1 % (41-53); Hemoglobin 15.8 g/dL (13.5-17.5); Lymphocytes Absolute Auto 1300 /uL (1100-4500); Lymphocytes Percent Auto 17.4 % (25-40); Mean Corpuscular HGB Conc 33.6 % (30-36); Mean Corpuscular Hemoglobin 33.1 PG (26-34); Mean Corpuscular Volume 98.6 fL (80-100); Monocytes Absolute Auto 500 /uL (0-900); Monocytes Percent Auto 7.3 % (3-14); Neutrophils Absolute Auto 5400 /uL (1500-7000); Platelet Count 248 X10^3/uL (150-400); Red Blood Cell Count 4.78 X10^6/uL (4.5-5.9); Red Cell Distribution Width 14.6 % (11.6-14.8); White Blood Cell Count 7.2 X10^3/uL (4.5-11.0)
[2025-03-23] MEDS: ONDANSETRON 4 MG/2 ML INJ IV ×2 (12:25→13:24)
[2025-03-23] MEDS: MORPHINE 2 MG/ML INJ IV (12:25)
[2025-03-23] MEDS: SODIUM CHLORIDE 0.9% 1,000 ML 1000 ML IV (12:26)
[2025-03-23 12:34] LABS: Alanine Aminotransferase 25 IU/L (<50); Albumin 4.8 g/dL (3.5-5.0); Albumin Globulin Ratio 1.6 (1.0-2.8); Alkaline Phosphatase 109 U/L (38-126); Aspartate Aminotransferase 38 IU/L (17-59); BUN Creatinine Ratio 13.1 (6-22); Blood Urea Nitrogen 16 mg/dL (9-20); Calcium 9.5 mg/dL (8.4-10.2); Carbon Dioxide 20 mmol/L (22-32); Chloride 101 mmol/L (98-107); Estimated Glomerular Filt Rate > 60 mL/min (>60); Glucose 128 mg/dL (70-99); HEMOLYSIS < 15 (0-50); Lipase 80 U/L (23-300); Potassium 4.7 mmol/L (3.4-5.1); Sodium 134 mmol/L (137-145); Total Protein 7.8 g/dL (6.3-8.2)
[2025-03-23] MEDS: MORPHINE 4 MG/ML INJ IV ×2 (12:42→14:00)
--- NOTE | 2025-03-23 12:44 | DI.RAD.S_ITS ---
PROCEDURE: XR CHEST 1V INDICATIONS: pain TECHNIQUE: One view of the chest was acquired. COMPARISON: [facility], CR, XR CHEST 1V, 08/22/2023, 14:09. FINDINGS: Surgical changes and devices: None. Lungs and pleura: Low lung volumes bilaterally. Mild left basilar atelectasis or small effusion. Right lung is clear. Curvilinear artifact projects over the right chest. Multiple cardiac leads are present. Mediastinum: Mediastinal contours appear normal. Heart size is normal. Bones and chest wall: No suspicious bony lesions. Overlying soft tissues appear unremarkable. IMPRESSION: Low lung volumes bilaterally. Mild left basilar atelectasis or small effusion. Approved by: Jose Valderrama M.D. on 03/23/2025 at 13:06
--- NOTE | 2025-03-23 12:45 | ED.ABDPAIN ---
HPI - Abdominal Pain General Chief Complaint: Abdominal Pain Stated Complaint: RT lower side pain and feeling nauseated; vomited Time Seen by Provider: 03/23/25 12:13 Source: patient Mode of arrival: Family Vehicle History of Present Illness HPI narrative: Patient is an adult with a history of left nephrectomy and right lower lobe lung resection who presents with acute onset right lower quadrant abdominal pain that began around 11:00 AM. The pain was initially sharp and mild, subsided briefly, then recurred and intensified, prompting the patient to seek care. The pain has also radiated to the lower back, which the patient relates to a prior back injury, but notes this episode is more localized to the right side. The patient reports associated chills with teeth chattering, but denies fever, vomiting, or chest pain. Nausea was present but without emesis. The patient has a history of kidney stones but no longer has the left kidney; the current pain is not clearly similar to prior nephrolithiasis. No history of abdominal surgeries; appendix and gallbladder are intact. No history of cardiac or aortic disease. The patient?s blood pressure was noted to be significantly elevated at 200 systolic, which is much higher than their baseline in the 120s. The pain is described as sharp and has migrated slightly higher during the encounter. Pertinent positives: chills, nausea, right lower quadrant pain radiating to lower back, elevated blood pressure. Pertinent negatives: no fever, no vomiting, no chest pain, no shortness of breath. Past Medical History: Left nephrectomy, right lower lobe lung resection, history of kidney stones, prior back injury. Surgical History: Left nephrectomy, right lower lobe lung resection. Related Data Home Medications ?Medication ?Instructions ?Recorded ?Confirmed Cbd Tincture 1 dose miscellaneous DIRECTED 05/29/19 03/23/25 albuterol sulfate 90 mcg/actuation 1 puff INH Q4HP PRN Shortness Of 05/29/19 03/23/25 aerosol inhaler (Proventil HFA) Breath epinephrine 0.3 mg/0.3 mL 0.3 mg IM PRN PRN Allergic Reaction 05/29/19 03/23/25 injection, auto-injector (EpiPen) fluticasone propionate 50 2 spray intranasal DAILY PRN 05/29/19 03/23/25 mcg/actuation nasal Allergy Symptoms spray,suspension (Flonase Allergy Relief) tiotropium 2.5 mcg-olodaterol 2.5 2 puff inhalation DAILY 05/29/19 03/23/25 mcg/actuation mist for inhalation (Stiolto Respimat) acetaminophen 325 mg capsule 1,000 mg PO BID 12/27/20 03/23/25 (Tylenol) omeprazole 40 mg capsule,delayed 40 mg PO DAILY 12/27/20 03/23/25 release tamsulosin 0.4 mg capsule 0.8 mg PO .qday 08/22/23 03/23/25 dutasteride 0.5 mg capsule 0.5 mg PO DAILY 03/23/25 03/23/25 Allergies Allergy/AdvReac Type Severity Reaction Status Date / Time venom-wasp protein (WASP Allergy Severe LOCAL Verified 03/23/25 11:56 VENOM PROTEIN) SWELLING, HIVES chlorpheniramine (From Allergy Unknown TACHYCARDIA Verified 03/23/25 11:56 TUSSIONEX) ,HYPOTENSIO N hydrocodone (From TUSSIONEX) Allergy Unknown TACHYCARDIA Verified 03/23/25 11:56 ,HYPOTENSIO N adhesive AdvReac Severe Blister Verified 03/23/25 11:56 salmeterol (SALMETEROL) AdvReac Intermediate TACHYCARDIA Verified 03/23/25 11:56 venlafaxine (VENLAFAXINE) AdvReac Intermediate DIZZY, Verified 03/23/25 11:56 TINNITIS duloxetine (DULOXETINE) AdvReac Mild NAUSEA Verified 03/23/25 11:56 zolpidem (From AMBIEN) AdvReac Unknown I FORGOT Verified 03/23/25 11:56 WHO I WAS. Review of Systems Review of Systems ROS Unobtainable: All systems reviewed & are unremarkable except as noted in HPI and below Patient History Medical History History of lung cancer COPD (chronic obstructive pulmonary disease) Surgical History S/P lobectomy of lung Family History Father Heart disease Hypertension Mental health problem COPD (chronic obstructive pulmonary disease) Mother Hypertension Sister Mental health problem COPD (chronic obstructive pulmonary disease) Social History household members: spouse Smoking Status: Former smoker alcohol intake: current alcohol intake frequency: other Exam Narrative Exam Narrative: General: Well appearing, well nourished, in no distress. Skin: Good turgor, no rash, unusual bruising or prominent lesions Head: Normocephalic, atraumatic HEENT: Conjunctiva clear, EOM intact, PERRL, Mucous membranes moist. Neck: Supple, normal ROM Heart: Regular rate and rhythm, no murmur or gallop or rubs. 2+ pulses in bilateral upper extremities, extremities warm and well perfused. Lungs: Clear to auscultation. No rales rhonchi or wheezes. Abdomen: Soft and nontender. Bowel sounds normal. No mass or hernia Back: Spine normal without deformity or tenderness, no CVA tenderness Extremities: No deformities, edema. peripheral pulses intact Neurologic: CN 2-12 normal. Normal sensation and motor exam. Psychiatric: Oriented X3. normal mood and affect. Initial Vital Signs Initial Vital Signs: Vital Signs Temperature 97.9 F 03/23/25 11:56 Pulse Rate 68 03/23/25 11:56 Respiratory Rate 22 03/23/25 11:56 Blood Pressure 164/113 H 03/23/25 11:56 Pulse Oximetry 99 03/23/25 11:56 Oxygen Delivery Method Room Air 03/23/25 11:56 Course Orders Ordered: ED Orders 03/23/25 12:06 EKG-12 Lead Stat 03/23/25 12:15 Complete Blood Count AUTO DIFF Stat Comprehensive Metabolic Panel Stat Lipase Stat Troponin & CK Cardiac Panel Stat 03/23/25 12:44 Chest [XR chest 1V] Stat 03/23/25 13:01 CT angio chest abdomen pelvis Stat 03/23/25 15:26 Urinalysis and Microscopic Stat Iopamidol (Iopamidol 30 Ml Vial) 30 ml INJ NOW ONE Stop: 03/23/25 19:13 Last Admin: 03/23/25 19:00 Dose: 10 ml Documented By: BB Discontinued Medications Fentanyl (Fentanyl 100 Mcg/2 Ml Inj) 0 mcg IV Q5M PRN PRN Reason: Pain, Moderate (4-6) Hydromorphone HCl (Hydromorphone 0.5 Mg Inj) 0.5 mg IV Q2H PRN PRN Reason: Pain, Severe (7-10) Hydromorphone HCl (Hydromorphone 1 Mg Inj) 0 mg IV Q5MIN PRN PRN Reason: Pain, Moderate (4-6) Sodium Chloride (Normal Saline 0.9%) 1,000 mls @ 1,000 mls/hr IV BOLUS ONE Stop: 03/23/25 13:18 Last Infusion: 03/23/25 15:00 Dose: Infused Documented By: Admin: 03/23/25 12:26 Dose: 1,000 mls/hr Documented By: Ceftriaxone Sodium 2,000 mg/ (Sodium Chloride) 100 mls @ 200 mls/hr IV NOW ONE Stop: 03/23/25 14:25 Last Infusion: 03/23/25 16:21 Dose: Infused Documented By: Admin: 03/23/25 14:56 Dose: 200 mls/hr Documented By: Sodium Chloride (Normal Saline 0.45%) 1,000 mls @ 100 mls/hr IV CONT REYNALDO Last Admin: 03/23/25 17:01 Dose: 100 mls/hr Documented By: LDV Ceftriaxone Sodium 1,000 mg/ (Sodium Chloride) 100 mls @ 200 mls/hr IV Q24H REYNALDO Lactated Ringer's (Lactated Ringers) 1,000 mls @ 42 mls/hr IV CONT REYNALDO Last Infusion: 03/23/25 19:42 Dose: Infused Documented By: Admin: 03/23/25 18:11 Dose: 42 mls/hr Documented By: HERNESTO Ketorolac Tromethamine (Ketorolac 30 Mg/Ml Vial) 15 mg IV NOW ONE Stop: 03/23/25 14:25 Last Admin: 03/23/25 14:55 Dose: 15 mg Documented By: Lidocaine HCl (Lidocaine 2% (Glydo) 6 Ml Gel) 6 ml TOP NOW ONE Stop: 03/23/25 14:41 Last Admin: 03/23/25 14:45 Dose: 6 ml Documented By: Morphine Sulfate (Morphine 2 Mg/Ml Inj) 2 mg IV NOW ONE Stop: 03/23/25 12:20 Last Admin: 03/23/25 12:25 Dose: 2 mg Documented By: Morphine Sulfate (Morphine 4 Mg/Ml Inj) 4 mg IV NOW ONE Stop: 03/23/25 12:41 Last Admin: 03/23/25 12:42 Dose: 4 mg Documented By: Morphine Sulfate (Morphine 4 Mg/Ml Inj) 4 mg IV NOW ONE Stop: 03/23/25 13:14 Last Admin: 03/23/25 14:00 Dose: 4 mg Documented By: Naloxone HCl (Naloxone 0.4 Mg/Ml Vial) 0.2 mg IV Q2MIN PRN PRN Reason: Opiate Reversal Ondansetron HCl (Ondansetron 4 Mg/2 Ml Inj) 4 mg IV NOW PRN PRN Reason: Nausea And Vomiting Last Admin: 03/23/25 12:25 Dose: 4 mg Documented By: Ondansetron HCl (Ondansetron 4 Mg Odt) 4 mg PO NOW PRN PRN Reason: Nausea And Vomiting Ondansetron HCl (Ondansetron 4 Mg/2 Ml Inj) 4 mg IV NOW ONE Stop: 03/23/25 13:16 Last Admin: 03/23/25 13:24 Dose: 4 mg Documented By: Ondansetron HCl (Ondansetron 4 Mg/2 Ml Inj) 4 mg IV Q4HR PRN PRN Reason: Nausea And Vomiting Ondansetron HCl (Ondansetron 4 Mg/2 Ml Inj) 4 mg IV NOW PRN PRN Reason: Nausea And Vomiting Oxycodone HCl (Oxycodone Ir 5 Mg Tablet) 5 mg PO Q3H PRN PRN Reason: Pain, Moderate (4-6) Oxycodone HCl (Oxycodone Ir 5 Mg Tablet) 5 mg PO PACUNOW PRN PRN Reason: Mild or moderate pain Vital Signs Vital signs: Vital Signs - 8 hr 03/23/25 12:30 03/23/25 12:30 03/23/25 12:35 Pulse Rate 62 59 L Respiratory Rate 31 H 36 H Blood Pressure 203/98 H Pulse Oximetry 99 99 Oxygen Delivery Method 03/23/25 12:35 03/23/25 12:36 03/23/25 12:36 Pulse Rate 60 Respiratory Rate 31 H Blood Pressure 159/94 H 182/94 H Pulse Oximetry 100 Oxygen Delivery Method Room Air 03/23/25 12:37 03/23/25 12:37 03/23/25 12:38 Pulse Rate 59 L 59 L Respiratory Rate 22 25 H Blood Pressure 177/96 H Pulse Oximetry 100 99 Oxygen Delivery Method 03/23/25 12:38 03/23/25 12:39 03/23/25 12:39 Pulse Rate 59 L Respiratory Rate 30 H Blood Pressure 184/94 H 184/87 H Pulse Oximetry 99 Oxygen Delivery Method 03/23/25 13:00 03/23/25 13:01 03/23/25 13:01 Pulse Rate 66 65 Respiratory Rate 32 H 35 H Blood Pressure 203/95 H Pulse Oximetry 98 98 Oxygen Delivery Method 03/23/25 13:30 03/23/25 14:00 03/23/25 14:03 Pulse Rate 62 81 66 Respiratory Rate 18 39 H 26 H Blood Pressure Pulse Oximetry 100 98 99 Oxygen Delivery Method 03/23/25 14:03 03/23/25 14:30 03/23/25 14:30 Pulse Rate 55 L Respiratory Rate 22 Blood Pressure 201/94 H 202/97 H Pulse Oximetry 98 Oxygen Delivery Method MDM - Abdominal Pain Lab Data Lab results narrative: I reviewed patient's laboratory evaluation that fortunately showed no signs of leukocytosis anemia or thrombocytopenia, patient had no significant electrolyte abnormalities requiring ED intervention and kidney function that did not appear to be significantly elevated from baseline, lipase is not significantly elevated, troponin is not elevated 03/23/25 12:15 03/23/25 12:15 Labs: Lab Results 03/23/25 Range/Units 12:15 WBC 7.2 (4.5-11.0) X10^3/uL RBC 4.78 (4.5-5.9) X10^6/uL Hgb 15.8 (13.5-17.5) g/dL Hct 47.1 (41-53) % MCV 98.6 (80-100) fL MCH 33.1 (26-34) PG MCHC 33.6 (30-36) % RDW 14.6 (11.6-14.8) % Plt Count 248 (150-400) X10^3/uL Neut % (Auto) 74.0 (50-75) % Lymph % (Auto) 17.4 L (25-40) % [place] % (Auto) 7.3 (3-14) % Eos % (Auto) 0.5 L (2-4) % Baso % (Auto) 0.8 (0-2) % Neut # (Auto) 5400 (1165-4459) /uL Lymph # (Auto) 1300 (3861-4956) /uL [place] # (Auto) 500 (0-900) /uL Eos # (Auto) 0 (0-450) /uL Baso # (Auto) 100 (0-100) /uL Sodium 134 L (137-145) mmol/L Potassium 4.7 (3.4-5.1) mmol/L Chloride 101 (98-107) mmol/L Carbon Dioxide 20 L (22-32) mmol/L BUN 16 (9-20) mg/dL Creatinine 1.22 (0.66-1.25) mg/dL Estimated GFR > 60 (>60) mL/min BUN/Creatinine Ratio 13.1 (6-22) Glucose 128 H (70-99) mg/dL Calcium 9.5 (8.4-10.2) mg/dL Total Bilirubin 1.0 (0.2-1.3) mg/dL AST 38 (17-59) IU/L ALT 25 (<50) IU/L Alkaline Phosphatase 109 (38-126) U/L Total Creatine Kinase 131 (55-170) U/L Troponin I < 0.012 (0.01-0.034) ng/mL Total Protein 7.8 (6.3-8.2) g/dL Albumin 4.8 (3.5-5.0) g/dL Globulin 3.0 (1.7-4.1) g/dL Albumin/Globulin Ratio 1.6 (1.0-2.8) Lipase 80 (23-300) U/L Imaging Data CT scan - abdomen/pelvis: Radiologist's Impression: PROCEDURE: CT ANGIO CHEST ABDOMEN PELVIS INDICATIONS: Aortic dissection concern, stone, appy TECHNIQUE: Precontrast 5 mm thick sections acquired from the lung apices to the iliac crests. After the administration of intravenous contrast, 2.5 mm thick sections again acquired from the lung apices to the iliac crests. Maximum intensity projection (MIP) oblique sagittal and coronal reformats were then acquired. For radiation dose reduction, the following was used: automated exposure control. COMPARISON: [facility], CT, CT CHEST ABD PEL WO CON, 08/22/2023, 15:08. [facility], [place], [place] PET CT FUSION SKULL 2 THIGH, 05/11/2020, 13:39. FINDINGS: Image quality: Diagnostic. AORTA: Thoracic aorta is normal in size. The left common carotid artery arises from the brachiocephalic trunk, a normal anatomic variant. Proximal arch vessels are patent. Descending thoracic aorta is mildly tortuous. No abdominal aortic aneurysm. The visceral and right renal branches are patent. No significant narrowing of the visualized iliac and femoral arteries. CHEST: Lower Neck: No enlarged lymph nodes. Thyroid: No thyroid nodules which require sonographic evaluation. Axillae: No enlarged lymph nodes. Chest Wall: Unremarkable. Lungs and Pleura: No pneumothorax or pleural effusions. Moderate centrilobular emphysema. No consolidation or suspicious nodules. Heart: Heart size is normal. No pericardial effusion. Thoracic Vessels: Pulmonary arteries demonstrate normal size. Mediastinum and Sonja: No enlarged lymph nodes. Esophagus: Patulous esophagus. Presumed postsurgical changes from esophagectomy and gastric pull-through. ABDOMEN: Liver: No solid mass. Stable hepatic cysts. Gallbladder: No radiopaque gallstones or wall thickening. Biliary ducts: No biliary dilation. Pancreas: No ductal dilation. Spleen: Size is within normal limits. Adrenal Glands: No adrenal nodules. Kidneys and Ureters: Left kidney is absent. No solid mass. No complex renal cystic lesion which requires follow up. Right distal ureteral calculus is seen measuring 4 mm near the ureterovesicular junction. Possible additional punctate 1-2 mm distal right ureteral calculus. Mild right hydroureteronephrosis and periureteral fat stranding. Small nonobstructing calculi at the inferior pole the right kidney. Stomach and Bowel: Multiple diverticula are seen in the colon without signs of acute diverticulitis. Small bowel loops are unremarkable. Normal appendix. Peritoneum: No abnormal intraperitoneal fluid. No free air. Ventral Wall: No hernia. Abdominal Nodes: No retroperitoneal or mesenteric adenopathy by size criteria. Vessels: Inferior vena cava is normal in size. PELVIS: Pelvic Organs: Unremarkable. Bladder: Left posterior bladder diverticulum. Pelvic Nodes: No enlarged lymph nodes. Miscellaneous: Bilateral fat containing inguinal hernia. Bones: Multilevel eezo-be-[id number] compression fractures at L2 through L5. L3 compression fracture is new when compared to the CT from 08/22/2023, but is of uncertain age. Chronic fusion across the T12-L1 disc space. Generalized osteopenia. Sternomanubrial fracture deformities are new when compared to the prior CT. IMPRESSION: 1. No aortic aneurysm or acute aortic syndrome. 2. Right distal ureteral 4 mm and 2 mm calculi near the ureterovesicular junction with mild right hydroureteronephrosis and periureteral fat stranding. 3. Small nonobstructing right renal calculi. 4. Postsurgical changes in the distal esophagus and stomach. Status post left nephrectomy. 5. Colonic diverticulosis without acute diverticulitis. Normal appendix. 6. Multiple chronic lumbar spine compression fractures. L3 fracture is new when compared to the CT from 08/22/2023, but is of uncertain age. MDM Narrative Medical decision making narrative: INITIAL EVALUATION AND PLAN: - Differential includes appendicitis, bowel obstruction, aortic pathology, and other intra-abdominal or chest etiologies. - Plan: - CBC, CMP, lipase - CT scan of abdomen and pelvis - Chest X-ray - EKG - Troponin - Bedside ultrasound - Pain management (repeat dose of pain medication) - Ongoing monitoring of blood pressure and symptoms ED Course: The patient presented with acute right lower quadrant abdominal pain radiating to the lower back, associated with chills and significantly elevated blood pressure. Initial evaluation included a broad differential diagnosis encompassing appendicitis, bowel obstruction, aortic pathology, and other intra-abdominal or chest etiologies. Diagnostic workup was initiated with CBC, CMP, lipase, CT scan of the abdomen and pelvis, chest X-ray, EKG, troponin, and bedside ultrasound. Pain management was provided with a repeat dose of pain medication, and the patient?s blood pressure and symptoms were closely monitored throughout the encounter. Differential Diagnoses: Appendicitis, Bowel obstruction, Aortic pathology, Nephrolithiasis, Pyelonephritis, Mesenteric ischemia, Diverticulitis, Cholecystitis Complexity of Problems Addressed: The patient presents with acute right lower quadrant abdominal pain radiating to the lower back, associated with chills and significantly elevated blood pressure. Differential diagnoses include appendicitis, bowel obstruction, and aortic pathology, which are conditions that could pose a threat to life or bodily function without prompt treatment. The history of left nephrectomy and right lower lobe lung resection further complicates the clinical picture, as does the absence of the left kidney, which increases the risk of morbidity in the context of kidney-related issues. The elevated blood pressure and systemic symptoms such as chills add to the severity and complexity of the case. Ordered Labs: - CBC - CMP - Lipase - Troponin Ordered Tests/Imaging: - Chest X-Ray - CT scan of abdomen and pelvis - EKG - Bedside ultrasound _ originally concern for potential aortic dissection given patient has elevated blood pressure from typical and flank pain radiating to the back, bedside ultrasound showed no free fluid in the abdomen no dissection noted on my independent interpretation however CTA of the chest abdomen and pelvis fortunately showed no dissection as well, patient was however found to have a right-sided kidney stone with some degree of hydronephrosis. Patient has a solitary right kidney and unfortunately this makes him high-risk. Patient received dose of antibiotics for potential infection given CT scan calling for some degree of stranding. Patient was discussed with urologist Dr. Rome who is agreeable to patient being admitted and performing a stenting procedure when possible Discharge Plan Departure Patient Disposition: Admitted As Inpatient Clinical Impression: Ureterolithiasis Admit Date/Time: 03/23/25 14:51 Admit Provider: Jim Walters
--- NOTE | 2025-03-23 13:01 | DI.CT.S_ITS ---
PROCEDURE: CT ANGIO CHEST ABDOMEN PELVIS INDICATIONS: Aortic dissection concern, stone, appy TECHNIQUE: Precontrast 5 mm thick sections acquired from the lung apices to the iliac crests. After the administration of intravenous contrast, 2.5 mm thick sections again acquired from the lung apices to the iliac crests. Maximum intensity projection (MIP) oblique sagittal and coronal reformats were then acquired. For radiation dose reduction, the following was used: automated exposure control. COMPARISON: [facility], CT, CT CHEST ABD PEL WO CON, 08/22/2023, 15:08. [facility], [place], [place] PET CT FUSION SKULL 2 THIGH, 05/11/2020, 13:39. FINDINGS: Image quality: Diagnostic. AORTA: Thoracic aorta is normal in size. The left common carotid artery arises from the brachiocephalic trunk, a normal anatomic variant. Proximal arch vessels are patent. Descending thoracic aorta is mildly tortuous. No abdominal aortic aneurysm. The visceral and right renal branches are patent. No significant narrowing of the visualized iliac and femoral arteries. CHEST: Lower Neck: No enlarged lymph nodes. Thyroid: No thyroid nodules which require sonographic evaluation. Axillae: No enlarged lymph nodes. Chest Wall: Unremarkable. Lungs and Pleura: No pneumothorax or pleural effusions. Moderate centrilobular emphysema. No consolidation or suspicious nodules. Heart: Heart size is normal. No pericardial effusion. Thoracic Vessels: Pulmonary arteries demonstrate normal size. Mediastinum and Sonja: No enlarged lymph nodes. Esophagus: Patulous esophagus. Presumed postsurgical changes from esophagectomy and gastric pull-through. ABDOMEN: Liver: No solid mass. Stable hepatic cysts. Gallbladder: No radiopaque gallstones or wall thickening. Biliary ducts: No biliary dilation. Pancreas: No ductal dilation. Spleen: Size is within normal limits. Adrenal Glands: No adrenal nodules. Kidneys and Ureters: Left kidney is absent. No solid mass. No complex renal cystic lesion which requires follow up. Right distal ureteral calculus is seen measuring 4 mm near the ureterovesicular junction. Possible additional punctate 1-2 mm distal right ureteral calculus. Mild right hydroureteronephrosis and periureteral fat stranding. Small nonobstructing calculi at the inferior pole the right kidney. Stomach and Bowel: Multiple diverticula are seen in the colon without signs of acute diverticulitis. Small bowel loops are unremarkable. Normal appendix. Peritoneum: No abnormal intraperitoneal fluid. No free air. Ventral Wall: No hernia. Abdominal Nodes: No retroperitoneal or mesenteric adenopathy by size criteria. Vessels: Inferior vena cava is normal in size. PELVIS: Pelvic Organs: Unremarkable. Bladder: Left posterior bladder diverticulum. Pelvic Nodes: No enlarged lymph nodes. Miscellaneous: Bilateral fat containing inguinal hernia. Bones: Multilevel [id number]-kv-[id number] compression fractures at L2 through L5. L3 compression fracture is new when compared to the CT from 08/22/2023, but is of uncertain age. Chronic fusion across the T12-L1 disc space. Generalized osteopenia. Sternomanubrial fracture deformities are new when compared to the prior CT. IMPRESSION: 1. No aortic aneurysm or acute aortic syndrome. 2. Right distal ureteral 4 mm and 2 mm calculi near the ureterovesicular junction with mild right hydroureteronephrosis and periureteral fat stranding. 3. Small nonobstructing right renal calculi. 4. Postsurgical changes in the distal esophagus and stomach. Status post left nephrectomy. 5. Colonic diverticulosis without acute diverticulitis. Normal appendix. 6. Multiple chronic lumbar spine compression fractures. L3 fracture is new when compared to the CT from 08/22/2023, but is of uncertain age. Approved by: Jose Valderrama M.D. on 03/23/2025 at 14:09
[2025-03-23 13:10] LABS: Creatine Kinase 131 U/L (55-170)
[2025-03-23 13:22] LABS: Troponin I < 0.012 ng/mL (0.01-0.034)
[2025-03-23] MEDS: LIDOCAINE 2% (GLYDO) 6 ML GEL TOP (14:45)
[2025-03-23] MEDS: KETOROLAC 30 MG/ML VIAL 15 MG IV (14:55)
[2025-03-23] MEDS: cefTRIAXone 2,000 MG in SODIUM CHLORIDE 0.9% 100 ML 200 MG IV (14:56)
[2025-03-23 16:30] LABS: Appearance Urine UA CLEAR; Bilirubin Urine UA NEGATIVE (NEGATIVE); Color Urine UA YELLOW; Glucose Urine UA NEGATIVE (Negative); Ketones Urine UA NEGATIVE (NEGATIVE); Leukocyte Esterase Urine UA NEGATIVE (NEGATIVE); Nitrite Urine UA NEGATIVE (Negative); Occult Blood Urine UA 2+ (Negative); Protein Urine UA NEGATIVE (Negative); Urobilinogen Urine UA 0.2 E.U./dL (0.2)
--- NOTE | 2025-03-23 16:37 | P.HP_ITS ---
History of Present Illness History of Present Illness Date Patient Seen: 03/24/25 Chief complaint: right lower quadrant abdominal pain, nausea Narrative: Chief complaint: Right flank pain with nausea and vomiting secondary to nephrolithiasis ureteral stone History of present illness: Patient is an adult with a history of left nephrectomy and right lower lobe lung resection who presents with acute onset right lower quadrant abdominal pain that began around 11:00 AM. The pain was initially sharp and mild, subsided briefly, then recurred and intensified, prompting the patient to seek care. The pain has also radiated to the lower back, which the patient relates to a prior back injury, but notes this episode is more localized to the right side. The patient reports associated chills with teeth chattering, but denies fever, vomiting, or chest pain. Nausea was present but without emesis. The patient has a history of kidney stones but no longer has the left kidney; the current pain is not clearly similar to prior nephrolithiasis. No history of abdominal surgeries; appendix and gallbladder are intact. No history of cardiac or aortic disease. The patient?s blood pressure was noted to be significantly elevated at 200 systolic, which is much higher than their baseline in the 120s. The pain is described as sharp and has migrated slightly higher during the encounter. Pertinent positives: chills, nausea, right lower quadrant pain radiating to lower back, elevated blood pressure. Pertinent negatives: no fever, no vomiting, no chest pain, no shortness of breath. Past Medical History: Left nephrectomy, right lower lobe lung resection, history of kidney stones, prior back injury. Surgical History: Left nephrectomy, right lower lobe lung resection Review of systems: Physical exam: Laboratory and imaging objective findings at the bottom of the page Assessment and plan: [facility] Medical History History of lung cancer COPD (chronic obstructive pulmonary disease) Surgical History S/P lobectomy of lung Family History Father Heart disease Hypertension Mental health problem COPD (chronic obstructive pulmonary disease) Mother Hypertension Sister Mental health problem COPD (chronic obstructive pulmonary disease) Social History household members: spouse Smoking Status: Former smoker alcohol intake: current Meds Home Medications and Allergies Home Medications ?Medication ?Instructions ?Recorded ?Confirmed ?Type Cbd Tincture 1 dose miscellaneous DIRE CTED 05/29/19 03/23/25 History albuterol sulfate 90 mcg/actuation 1 puff INH Q4HP PRN Shortness Of 05/29/19 03/23/25 History aerosol inhaler (Proventil HFA) Breath epinephrine 0.3 mg/0.3 mL 0.3 mg IM PRN PRN Allergic R eaction 05/29/19 03/23/25 History injection, auto-injector (EpiPen) fluticasone propionate 50 2 spray intranasal DAILY PRN 05/29/19 03/23/25 History mcg/actuation nasal Allergy Symptoms spray,suspension (Flonase Allergy Relief) tiotropium 2.5 mcg-olodaterol 2.5 2 puff inhalation DA NHUNG 05/29/19 03/23/25 History mcg/actuation mist for inhalation (Stiolto Respimat) acetaminophen 325 mg capsule 1,000 mg PO BID 12/27/20 03/23/25 History (Tylenol) omeprazole 40 mg capsule,delayed 40 mg PO DAILY 03/23/25 History release tamsulosin 0.4 mg capsule 0.8 mg PO .qday 08/22/2301/12 History dutasteride 0.5 mg capsule 0.5 mg PO DAILY 03/23/25 History Allergies Allergy/AdvReac Type Severity Reaction Status Date / Time venom-wasp protein (WASP Allergy Severe LOCAL Verified 03/23/25 11:56 VENOM PROTEIN) SWELLING, HIVES chlorpheniramine (From Allergy Unknown TACHYCARDIA Verified 03/23/25 11:56 TUSSIONEX) ,HYPOTENSIO N hydrocodone (From TUSSIONEX) Allergy Unknown TACHYCARDIA Verified 03/23/25 11:56 ,HYPOTENSIO N adhesive AdvReac Severe Blister Verified 03/23/25 11:56 salmeterol (SALMETEROL) AdvReac Intermediate TACHYCARDIA Verified 03/23/25 11:56 venlafaxine (VENLAFAXINE) AdvReac Intermediate DIZZY, Verified 03/23/25 11:56 TINNITIS duloxetine (DULOXETINE) AdvReac Mild NAUSEA Verified 03/23/25 11:56 zolpidem (From AMBIEN) AdvReac Unknown I FORGOT Verified 03/23/25 11:56 WHO I WAS. Exam Vital Signs (past 8 hours): - 03/23/25 11:56 03/23/25 12:05 03/23/25 12:06 Temperature 97.9 F Pulse Rate 68 58 L Respiratory Rate 22 Blood Pressure 164/113 H Pulse Oximetry 99 96 99 Oxygen Delivery Method Room Air Room Air 03/23/25 12:06 03/23/25 12:30 03/23/25 12:30 Temperature Pulse Rate 62 Respiratory Rate 31 H Blood Pressure 182/88 H 203/98 H Pulse Oximetry 99 Oxygen Delivery Method 03/23/25 12:35 03/23/25 12:35 03/23/25 12:36 Temperature Pulse Rate 59 L Respiratory Rate 36 H Blood Pressure 159/94 H 182/94 H Pulse Oximetry 99 Oxygen Delivery Method 03/23/25 12:36 03/23/25 12:37 03/23/25 12:37 Temperature Pulse Rate 60 59 L Respiratory Rate 31 H 22 Blood Pressure 177/96 H Pulse Oximetry 100 100 Oxygen Delivery Method Room Air 03/23/25 12:38 03/23/25 12:38 03/23/25 12:39 Temperature Pulse Rate 59 L 59 L Respiratory Rate 25 H 30 H Blood Pressure 184/94 H Pulse Oximetry 99 99 Oxygen Delivery Method 03/23/25 12:39 03/23/25 13:00 03/23/25 13:01 Temperature Pulse Rate 66 65 Respiratory Rate 32 H 35 H Blood Pressure 184/87 H Pulse Oximetry 98 98 Oxygen Delivery Method 03/23/25 13:01 03/23/25 13:30 03/23/25 14:00 Temperature Pulse Rate 62 81 Respiratory Rate 18 39 H Blood Pressure 203/95 H Pulse Oximetry 100 98 Oxygen Delivery Method 03/23/25 14:03 03/23/25 14:03 03/23/25 14:30 Temperature Pulse Rate 66 Respiratory Rate 26 H Blood Pressure 201/94 H 202/97 H Pulse Oximetry 99 Oxygen Delivery Method 03/23/25 14:30 03/23/25 15:00 03/23/25 15:00 Temperature Pulse Rate 55 L 73 Respiratory Rate 22 26 H Blood Pressure 216/103 H Pulse Oximetry 98 99 Oxygen Delivery Method 03/23/25 15:30 06/03/25 15:30 Temperature Pulse Rate 73 Respiratory Rate 17 Blood Pressure 219/102 H Pulse Oximetry 97 Oxygen Delivery Method Oxygen Delivery Method Room Air Objective Labs 03/23/25 12:15 03/23/25 12:15 Labs: Laboratory Results - last 24 hr 03/23/25 03/23/25 12:15 15:26 WBC 7.2 RBC 4.78 Hgb 15.8 Hct 47.1 MCV 98.6 MCH 33.1 MCHC 33.6 RDW 14.6 Plt Count 248 Neut % (Auto) 74.0 Lymph % (Auto) 17.4 L [place] % (Auto) 7.3 Eos % (Auto) 0.5 L Baso % (Auto) 0.8 Neut # (Auto) 5400 Lymph # (Auto) 1300 [place] # (Auto) 500 Eos # (Auto) 0 Baso # (Auto) 100 Sodium 134 L Potassium 4.7 Chloride 101 Carbon Dioxide 20 L BUN 16 Creatinine 1.22 Estimated GFR > 60 BUN/Creatinine Ratio 13.1 Glucose 128 H Calcium 9.5 Total Bilirubin 1.0 AST 38 ALT 25 Alkaline Phosphatase 109 Total Creatine Kinase 131 Troponin I < 0.012 Total Protein 7.8 Albumin 4.8 Globulin 3.0 Albumin/Globulin Ratio 1.6 Lipase 80 Urine Color Yellow Urine Appearance Clear Urine pH 7.0 Ur Specific [place] 1.010 Urine Protein Negative Urine Glucose (UA) Negative Urine Ketones Negative Urine Occult Blood 2+ H Urine Nitrate Negative Urine Bilirubin Negative Urine Urobilinogen 0.2 Ur Leukocyte Esterase Negative Assessment & Plan Time-Based Coding :: [TOTAL MINUTES] spent with patient and on the chart (including review of chart, obtaining history, exam, reviewing outside data, placing orders, documenting exam and treatment plan, and counseling patient) on [DATE].
[2025-03-23 16:50] LABS: Bacteria Urine None Seen; Culture Indicated Urine Cult Not Indicated; RBC Urine 10-30/HPF (0-5/HPF); Squamous Epithelial Cell Urine None Seen (0-5/HPF); Urine Volume 10mL (spun); WBC Urine 0-1/HPF (0-5/HPF)
[2025-03-23] MEDS: SODIUM CHLORIDE 0.45% 1,000 ML 100 ML IV (17:01)
[2025-03-23] MEDS: LACTATED RINGERS 1,000 ML 42 ML IV (18:11)
--- NOTE | 2025-03-23 18:24 | PM.CN.IH.1 ---
History of Present Illness Consult details Date Patient Seen: 03/23/25 Time Patient Seen: 18:00 Chief complaint: right lower quadrant abdominal pain, nausea Reason for consult: Solitary kidney, obstructing right distal ureteroliths Narrative: 79 y/o M presents to ER for evaluation of severe right lower quadrant abdominal pain, nausea and vomiting. 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 He also admits to several prior kidney stones that were managed with either ureteroscopy with laser lithotripsy or ESWL in the past. He developed severe right lower quadrant abdominal pain, nausea and vomiting within the last 24 hours. His evaluation in the ER was notable for a WBC of 7.2, sCr of 1.22 and an unremarkable UA. His CT Abd/Pel was notable for a 4mm and 2mm right distal ureteroliths near the UVJ with resultant upstream mild hydroureteronephrosis and a few small right non-obstructing nephroliths. Urology was consulted regarding further management. Meds Home Medications and Allergies Home Medications ?Medication ?Instructions ?Recorded ?Confirmed ?Type Cbd Tincture 1 dose miscellaneous DIRECTED 05/29/19 03/23/25 History albuterol sulfate 90 mcg/actuation 1 puff INH Q4HP PRN Shortness Of 05/29/19 03/23/25 History aerosol inhaler (Proventil HFA) Breath epinephrine 0.3 mg/0.3 mL 0.3 mg IM PRN PRN Allergic Reaction 05/29/19 03/23/25 History injection, auto-injector (EpiPen) fluticasone propionate 50 2 spray intranasal DAILY PRN 05/29/19 03/23/25 History mcg/actuation nasal Allergy Symptoms spray,suspension (Flonase Allergy Relief) tiotropium 2.5 mcg-olodaterol 2.5 2 puff inhalation DAILY 05/29/19 03/23/25 History mcg/actuation mist for inhalation (Stiolto Respimat) acetaminophen 325 mg capsule 1,000 mg PO BID 12/27/20 03/23/25 History (Tylenol) omeprazole 40 mg capsule,delayed 40 mg PO DAILY 12/27/20 03/23/25 History release tamsulosin 0.4 mg capsule 0.8 mg PO .qday 08/22/23 03/23/25 History dutasteride 0.5 mg capsule 0.5 mg PO DAILY 03/23/25 03/23/25 History Allergies Allergy/AdvReac Type Severity Reaction Status Date / Time venom-wasp protein (WASP Allergy Severe LOCAL Verified 03/23/25 11:56 VENOM PROTEIN) SWELLING, HIVES chlorpheniramine (From Allergy Unknown TACHYCARDIA Verified 03/23/25 11:56 TUSSIONEX) ,HYPOTENSIO N hydrocodone (From TUSSIONEX) Allergy Unknown TACHYCARDIA Verified 03/23/25 11:56 ,HYPOTENSIO N adhesive AdvReac Severe Blister Verified 03/23/25 11:56 salmeterol (SALMETEROL) AdvReac Intermediate TACHYCARDIA Verified 03/23/25 11:56 venlafaxine (VENLAFAXINE) AdvReac Intermediate DIZZY, Verified 03/23/25 11:56 TINNITIS duloxetine (DULOXETINE) AdvReac Mild NAUSEA Verified 03/23/25 11:56 zolpidem (From AMBIEN) AdvReac Unknown I FORGOT Verified 03/23/25 11:56 WHO I WAS. Review of Systems Review of Systems Narrative: CONSTITUTIONAL: Denies weight loss, fevers, chills. HEENT: Denies change in vision, hearing. RESP: Denies SOB, cough. CV: Denies palpations, CP. GI: Denies abdominal pain, nausea, vomiting, diarrhea. : Denies dysuria, hematuria, inability to void. MSK: Denies myalgia, joint pain. SKIN: Denies rash, pruritus. NEURO: Denies headache, syncope. PSYCH: Denies recent change in mood, anxiety, depression. Exam Vital Signs (past 8 hours): - 03/23/25 11:56 03/23/25 12:05 03/23/25 12:06 Temperature 97.9 F Pulse Rate 68 58 L Respiratory Rate 22 Blood Pressure 164/113 H Pulse Oximetry 99 96 99 Oxygen Delivery Method Room Air Room Air 03/23/25 12:06 03/23/25 12:30 03/23/25 12:30 Temperature Pulse Rate 62 Respiratory Rate 31 H Blood Pressure 182/88 H 203/98 H Pulse Oximetry 99 Oxygen Delivery Method 03/23/25 12:35 03/23/25 12:35 03/23/25 12:36 Temperature Pulse Rate 59 L Respiratory Rate 36 H Blood Pressure 159/94 H 182/94 H Pulse Oximetry 99 Oxygen Delivery Method 03/23/25 12:36 03/23/25 12:37 03/23/25 12:37 Temperature Pulse Rate 60 59 L Respiratory Rate 31 H 22 Blood Pressure 177/96 H Pulse Oximetry 100 100 Oxygen Delivery Method Room Air 03/23/25 12:38 03/23/25 12:38 03/23/25 12:39 Temperature Pulse Rate 59 L 59 L Respiratory Rate 25 H 30 H Blood Pressure 184/94 H Pulse Oximetry 99 99 Oxygen Delivery Method 03/23/25 12:39 03/23/25 13:00 03/23/25 13:01 Temperature Pulse Rate 66 65 Respiratory Rate 32 H 35 H Blood Pressure 184/87 H Pulse Oximetry 98 98 Oxygen Delivery Method 03/23/25 13:01 03/23/25 13:30 03/23/25 14:00 Temperature Pulse Rate 62 81 Respiratory Rate 18 39 H Blood Pressure 203/95 H Pulse Oximetry 100 98 Oxygen Delivery Method 03/23/25 14:03 03/23/25 14:03 03/23/25 14:30 Temperature Pulse Rate 66 Respiratory Rate 26 H Blood Pressure 201/94 H 202/97 H Pulse Oximetry 99 Oxygen Delivery Method 03/23/25 14:30 03/23/25 15:00 03/23/25 15:00 Temperature Pulse Rate 55 L 73 Respiratory Rate 22 26 H Blood Pressure 216/103 H Pulse Oximetry 98 99 Oxygen Delivery Method 03/23/25 15:30 03/23/25 15:30 03/23/25 18:07 Temperature 98.3 F Pulse Rate 73 77 Respiratory Rate 17 16 Blood Pressure 219/102 H 163/97 H Pulse Oximetry 97 98 Oxygen Delivery Method Room Air Oxygen Delivery Method Room Air Narrative Exam Narrative: GEN: Alert and oriented X3. No acute distress. Well-nourished. EYES: PERRLA, EOMI. HENT: Moist mucus membranes, no scleral icterus, normal neck ROM. RESP: Unlabored breathing, equal rise and fall of chest bilaterally, no cyanosis appreciated. CV: No peripheral edema, unremarkable heart rate. ABD: Soft, non-tender, non-distended, no palpable masses. EXT: No edema, clubbing or cyanosis. SKIN: No rashes or lesions. NEURO: No focal neurologic deficits, CN II-XII grossly intact. PSYCH: Cooperative, appropriate mood and affect. Objective Labs 03/23/25 12:15 03/23/25 12:15 Labs: Laboratory Results - last 24 hr 03/23/25 03/23/25 12:15 15:26 WBC 7.2 RBC 4.78 Hgb 15.8 Hct 47.1 MCV 98.6 MCH 33.1 MCHC 33.6 RDW 14.6 Plt Count 248 Neut % (Auto) 74.0 Lymph % (Auto) 17.4 L [place] % (Auto) 7.3 Eos % (Auto) 0.5 L Baso % (Auto) 0.8 Neut # (Auto) 5400 Lymph # (Auto) 1300 [place] # (Auto) 500 Eos # (Auto) 0 Baso # (Auto) 100 Sodium 134 L Potassium 4.7 Chloride 101 Carbon Dioxide 20 L BUN 16 Creatinine 1.22 Estimated GFR > 60 BUN/Creatinine Ratio 13.1 Glucose 128 H Calcium 9.5 Total Bilirubin 1.0 AST 38 ALT 25 Alkaline Phosphatase 109 Total Creatine Kinase 131 Troponin I < 0.012 Total Protein 7.8 Albumin 4.8 Globulin 3.0 Albumin/Globulin Ratio 1.6 Lipase 80 Urine Color Yellow Urine Appearance Clear Urine pH 7.0 Ur Specific [place] 1.010 Urine Protein Negative Urine Glucose (UA) Negative Urine Ketones Negative Urine Occult Blood 2+ H Urine Nitrate Negative Urine Bilirubin Negative Urine Urobilinogen 0.2 Ur Leukocyte Esterase Negative Urine RBC 10-30/hpf H Urine WBC 0-1/hpf Ur Squamous Epith Cells None seen Urine Bacteria None seen Ur Culture Indicated? Cult not indicated Vol Urine Centrifuged 10ml (spun) [facility] Medical History History of lung cancer COPD (chronic obstructive pulmonary disease) Surgical History S/P lobectomy of lung Family History Father Heart disease Hypertension Mental health problem COPD (chronic obstructive pulmonary disease) Mother Hypertension Sister Mental health problem COPD (chronic obstructive pulmonary disease) Social History household members: spouse Tobacco & Substance Use Smoking Status: Former smoker alcohol intake: current Assessment & Plan Assessment and plan (1) Right ureteral stone: Status: Acute Plan: 79 y/o M w/ a 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 Discussed treatment options to include continued medical expulsion therapy (not recommended given his solitary kidney state and difficult to control pain) vs cystoscopy with right ureteral stent placement. Discussed risks of the procedure to include but not limited to pain, bleeding, infection, injury to urethra/bladder/ureter, inability to access the ureter requiring discussion with Interventional Radiology regarding a possible ureteral stent placement in an antegrade fashion vs a possible nephroureteral stent and/or percutaneous nephrostomy tube, urinary tract infection, need for emergent open repair of bladder and/or ureter, need for multiple ureteroscopic interventions necessary to render the patient stone free in the future. He indicated understanding and informed consent was obtained. Time-Based Coding :: [TOTAL MINUTES] spent with patient and on the chart (including review of chart, obtaining history, exam, reviewing outside data, placing orders, documenting exam and treatment plan, and counseling patient) on [DATE]. PROFEE Charge Codes Inpatient or Observation consultation: [id number]
--- NOTE | 2025-03-23 18:57 | SUR.OPER ---
Lithotomy on padded OR bed, head on pillow, arms secured on padded arm boards at <90 degrees abduction. Legs secured in padded yellow fins stirrups. Schneider discontinued prior to prep and start of procedure.
[2025-03-23] MEDS: iopamidoL 30 ML VIAL INJ (19:00)
--- NOTE | 2025-03-23 19:31 | PM.OP.1 ---
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 Discussed treatment options to include continued medical expulsion therapy (not recommended given his solitary kidney state and difficult to control pain) vs cystoscopy with right ureteral stent placement. Surgeon: Tesfaye Rome Click Yes if Unassisted: Yes Anesthesia Type: General Operative Notes Findings: Coaptating lateral prostatic lobes, surgically absent left ureteral orifice, multiple scars within bladder consistent with prior TURBT's, moderate right hydroureteronephrosis Specimen(s): none sent Estimated Blood Loss (mL): 2 Blood products transfused: none Procedure in detail: Patient was identified in the preoperative holding area and consent confirmed. He was then brought to the operating room where general anesthesia was induced.? He was then placed in the low lithotomy position. He was then prepped and draped in the usual sterile fashion. A surgical timeout was conducted and all were in agreement. Access to the bladder was obtained via a 21Fr cystoscope.? He was noted to have coaptating lateral prostatic lobes and a surgically absent left ureteral orifice in addition to multiple prior scars consistent with prior TURBT's. His right ureteral orifice was noted to be orthotopic in nature. Complete cystoscopy was performed and no concerning masses or lesions were appreciated. The right ureteral orifice was easily visualized and a 0.035 sensor tip ureteral guidewire was advanced through the 5Fr ureteral catheter and into the right renal collecting system.? The ureteral guidewire was removed and a retrograde pyelogram was performed which noted moderate right hydronephrosis.? The ureteral guidewire was readvanced through the ureteral catheter and into the right renal pelvis.? The ureteral catheter was then removed.? A 6Fr multi-length JJ ureteral stent without strings was then advanced over the ureteral guidewire and into the right renal collecting system.? Upon removal of the ureteral guidewire, a good curl was appreciated within the right renal pelvis upon fluoroscopy and visually within the bladder.? The bladder was then drained and the cystoscope was removed.? A new 18Fr coude catheter was inserted and 10cc of sterile water was utilized for balloon insufflation. Anesthesia was reversed, he was extubated in the OR and transferred to the PACU in stable condition for recovery. Complications: none Post-operative Condition: stable Disposition: Acute Care Plan for aftercare: Transfer back to Acute Care with the hospitalist team. Will need definitive stone management via a right ureteroscopy, laser lithotripsy and right ureteral stent exchange.
[2025-03-23] MEDS: SODIUM CHLORIDE 0.9% 1,000 ML 125 ML IV (23:24)
[2025-03-24 04:00] VITALS: BP 106/58; PULSE 68; RESP 18; TEMP 36.2; O2SAT 96
[2025-03-24] MEDS: PANTOPRAZOLE DR 40 MG TABLET PO (06:14)
[2025-03-24] MEDS: SODIUM CHLORIDE 0.9% 1,000 ML 125 ML IV (08:03)
[2025-03-24 09:33] VITALS: BP 109/69; PULSE 60; RESP 18; TEMP 36.2; O2SAT 91
[2025-03-24] MEDS: TAMSULOSIN 0.4 MG CAPSULE 0.8 MG PO (09:55)
[2025-03-24] MEDS: DUTASTERIDE 0.5 MG 0.5 EACH PO (09:55)
[2025-03-24 12:00] VITALS: BP 129/76; PULSE 60; RESP 18; TEMP 36.2; O2SAT 98
--- NOTE | 2025-03-24 13:31 | PC.NURSE ---
Addendum entered by Deb Biggs R.N. 03/24/25 15:49: Pt and spouse agreeable of discharge. Education provided to pt on catheter care, pt reports having a previous urinary catheter at home. Instructions provided on maintaining aspectic care of urinary catheter, cleaning area and changing bags if applicable. IV discontinued, pt able to dress ind. Pt wheeled via w/c to private vehicle with spouse and this RN at approximately 1455. Original Note: Day shift: Pt requesting information on possible discharge. Hospitalist provider Dr. Wilner Walters notified, referred to urology. Dr. Rome stated pt is cleared on his part, can go home with urinary catheter in place at discharge to follow up in one week outpatient with urology clinic. Dr. Walters notified, care ongoing.
--- NOTE | 2025-03-24 13:42 | P.DS_ITS ---
History of Present Illness History of Present Illness Date Patient Seen: 03/24/25 Chief complaint: right lower quadrant abdominal pain, nausea Narrative: Chief complaint: Right flank pain with nausea and vomiting secondary to nephrolithiasis ureteral stone History of present illness: Patient is an adult with a history of left nephrectomy and right lower lobe lung resection who presents with acute onset right lower quadrant abdominal pain that began around 11:00 AM. The pain was initially sharp and mild, subsided briefly, then recurred and intensified, prompting the patient to seek care. The pain has also radiated to the lower back, which the patient relates to a prior back injury, but notes this episode is more localized to the right side. The patient reports associated chills with teeth chattering, but denies fever, vomiting, or chest pain. Nausea was present but without emesis. The patient has a history of kidney stones but no longer has the left kidney; the current pain is not clearly similar to prior nephrolithiasis. No history of abdominal surgeries; appendix and gallbladder are intact. No history of cardiac or aortic disease. The patient?s blood pressure was noted to be significantly elevated at 200 systolic, which is much higher than their baseline in the 120s. The pain is described as sharp and has migrated slightly higher during the encounter. Pertinent positives: chills, nausea, right lower quadrant pain radiating to lower back, elevated blood pressure. Pertinent negatives: no fever, no vomiting, no chest pain, no shortness of breath. Past Medical History: Left nephrectomy, right lower lobe lung resection, history of kidney stones, prior back injury. Surgical History: Left nephrectomy, right lower lobe lung resection Review of systems: Physical exam: Laboratory and imaging objective findings at the bottom of the page Assessment and plan: Obstructing ureteral stone status post successful stenting patient discharged home Discharge Providers Provider Date of admission: 03/23/25 14:51 Discharge Date: 03/24/25 Primary care physician: Jordy Cardenas MD Discharge provider: Jim Walters MD Exam Vital Signs (past 8 hours): - 03/24/25 09:33 03/24/25 12:00 Temperature 97.2 F L 97.1 F L Pulse Rate 60 60 Respiratory Rate 18 18 Blood Pressure 109/69 129/76 Pulse Oximetry 91 98 Oxygen Flow Rate 0 0 Oxygen Delivery Method Room Air Oxygen Flow Rate 0 Objective Labs 03/23/25 12:15 03/23/25 12:15 Labs: Laboratory Results - last 24 hr 03/23/25 15:26 Urine Color Yellow Urine Appearance Clear Urine pH 7.0 Ur Specific [place] 1.010 Urine Protein Negative Urine Glucose (UA) Negative Urine Ketones Negative Urine Occult Blood 2+ H Urine Nitrate Negative Urine Bilirubin Negative Urine Urobilinogen 0.2 Ur Leukocyte Esterase Negative Urine RBC 10-30/hpf H Urine WBC 0-1/hpf Ur Squamous Epith Cells None seen Urine Bacteria None seen Ur Culture Indicated? Cult not indicated Vol Urine Centrifuged 10ml (spun) [facility] Medical History History of lung cancer COPD (chronic obstructive pulmonary disease) Surgical History S/P lobectomy of lung Family History Father Heart disease Hypertension Mental health problem COPD (chronic obstructive pulmonary disease) Mother Hypertension Sister Mental health problem COPD (chronic obstructive pulmonary disease) Social History household members: spouse Smoking Status: Former smoker alcohol intake: current Discharge Plan Discharge Plan Patient Disposition: Home Nursing Discharge Comment: You will receive a call from the urology clinic to schedule your one-week follow up appointment. Ensure to wash your hands before and after emptying your catheter, changing the bag, and cleaning your catheter area. You will go home with a large catheter bag but will be supplied with a leg bag to change for mobility. If you have any emergent needs regarding your catheter care, please call the urology clinic at [phone]. Discharge orders & Medications Prescriptions: Continued acetaminophen [Tylenol] 325 mg Capsule 1,000 mg PO BID omeprazole 40 mg Capsule,Delayed Release(Dr/Ec) 40 mg PO DAILY dutasteride 0.5 mg capsule 0.5 mg PO DAILY epinephrine [EpiPen] 0.3 mg/0.3 mL Auto-Injector 0.3 mg IM PRN PRN (Reason: Allergic Reaction) Stiolto Respimat 2.5-2.5 mcg/actuation Mist 2 puff inhalation DAILY Cbd Tincture 1 dose miscellaneous DIRECTED albuterol sulfate [Proventil HFA] 90 MCG/PUFF HFA aerosol inhaler 1 puff INH Q4HP PRN (Reason: Shortness Of Breath) fluticasone propionate [Flonase Allergy Relief] 9.9 ML spray,suspension 2 spray Intranasal DAILY PRN (Reason: Allergy Symptoms) tamsulosin 0.4 mg Capsule 0.8 mg PO .qday Follow up/Referrals: Jordy Cardenas MD [Primary Care Provider, Internal Medicine] Diet/Activity/Treatments Diet: Diet as Tolerated Activity: No lifting over 25 lbs. Activity is as tolerated Catheter: 2-way Schneider Catheter comment: Please see nurse instructions Skin/Wound/Dressing Care Report to your healthcare provider any signs of infection, such as:: chills, fever, night sweats, increased pain, unusual drainage and unusual redness Visit Report/Discharge Packet Instructions: DI for Cystoscopy Stand Alone Forms: Patient Portal/API, Stroke Signs & Symptoms Discharge Data Primary Care Provider: Jordy Cardenas Attending Provider: Jim Walters Admit Date/Time: 03/23/25 14:51 Quality VTE Deep Vein Thrombosis/Pulmonary Embolism Present on Admission: No
== END 2025-03-24 14:55 | disposition home or self-care (01) ==
LOC: ED 12:13 → AC 15:15
PROVIDERS: Urology; Admitting Provider Internal Medicine; Emergency Provider Emergency Medicine; Family Provider Family Medicine; PCP Internal Medicine; Referring Provider Emergency Medicine; Visit Provider Internal Medicine
PROC: (CPT 52332; principal; 2025-03-23 19:45)
DX: N20.1 Calculus of ureter (principal); Z87.891 Personal history of nicotine dependence; Q60.0 Renal agenesis, unilateral; N13.30 Unspecified hydronephrosis; R03.0 Elevated blood-pressure reading, without diagnosis of hypertension
CPT/HCPCS: 52332; 52351; 36415; 71045; 71275; 74018; 74174; 76000; 80053; 81001; 81003; 82550; 83690; 84484; 85025; 93005; 96361; 96365; 96375; 96376; 99284; G0378; C2617; J0330; J0696; J1885; J2270; J2405; J2704; J3010; J7050; Q9967

== ENCOUNTER 2025-08-17 08:29 | Emergency (ER) | payer OTHER, SELFPAY ==
[2025-03-23 15:02] VITALS: BMI 25.1
[2025-08-17 08:42] VITALS: BP 159/82; PULSE 58; RESP 16; TEMP 36.4; O2SAT 100; BMI 25.1
--- NOTE | 2025-08-17 08:50 | ED_ITS ---
HPI - Dizziness General Chief Complaint: Dizziness Stated Complaint: N/V Clogged ears Time Seen by Provider: 08/17/25 08:36 Source: patient and family Mode of arrival: Wheelchair Limitations: no limitations History of Present Illness HPI Narrative: 80-year-old male history of multiple cancers with prior gastric resection, left nephrectomy, right lower lobectomy and BPH and GERD who presents with complaint of vertigo symptoms. Patient states his hearing has been slightly decreased for the past week he woke up with vertigo states he woke up rolled over in the bed and had spinning of the room. He noticed his tinnitus has a little bit more muffled the past week. He denies any numbness tingling or weakness, no difficulty with speech, no double vision, no difficulty with movement in his extremities. Patient states he has had vertigo in the past. He denies any recent URIs. Patient denies any fevers. He has had nausea and some vomiting this morning. He denies any other GI or urinary symptoms new chest pain or shortness of breath. Patient has some adverse reactions to medications but states his allergies paper tape. He denies any tobacco, occasional alcoholic drinks, no recreational drugs. He states it is only medications are Flomax and omeprazole. He did take an antinausea pill before he came in which has been helpful. Related Data Home Medications ?Medication ?Instructions ?Recorded ?Confirmed Cbd Tincture 1 dose miscellaneous DIRE CTED 05/29/19 03/23/25 albuterol sulfate 90 mcg/actuation 1 puff INH Q4HP PRN Shortness Of 05/29/19 03/23/25 aerosol inhaler (Proventil HFA) Breath epinephrine 0.3 mg/0.3 mL 0.3 mg IM PRN PRN Allergic R eaction 05/29/19 03/23/25 injection, auto-injector (EpiPen) fluticasone propionate 50 2 spray intranasal DAILY PRN 05/29/19 03/23/25 mcg/actuation nasal Allergy Symptoms spray,suspension (Flonase Allergy Relief) tiotropium 2.5 mcg-olodaterol 2.5 2 puff inhalation DA NHUNG 05/29/19 03/23/25 mcg/actuation mist for inhalation (Stiolto Respimat) acetaminophen 325 mg capsule 1,000 mg PO BID 12/27/20 03/23/25 (Tylenol) omeprazole 40 mg capsule,delayed 40 mg PO DAILY 03/23/25 release tamsulosin 0.4 mg capsule 0.8 mg PO .qday 08/22/2301/12 dutasteride 0.5 mg capsule 0.5 mg PO DAILY 03/23/25 Previous Rx's ?Medication ?Instructions ?Recorded meclizine 25 mg chewable tablet 25 mg PO QID PRN verti go #10 tabs 08/17/25 Allergies Allergy/AdvReac Type Severity Reaction Status Date / Time venom-wasp protein (WASP Allergy Severe LOCAL Verified 03/23/25 11:56 VENOM PROTEIN) SWELLING, HIVES chlorpheniramine (From Allergy Unknown TACHYCARDIA Verified 03/23/25 11:56 TUSSIONEX) ,HYPOTENSIO N hydrocodone (From TUSSIONEX) Allergy Unknown TACHYCARDIA Verified 03/23/25 11:56 ,HYPOTENSIO N adhesive AdvReac Severe Blister Verified 03/23/25 11:56 salmeterol (SALMETEROL) AdvReac Intermediate TACHYCARDIA Verified 03/23/25 11:56 venlafaxine (VENLAFAXINE) AdvReac Intermediate DIZZY, Verified 03/23/25 11:56 TINNITIS duloxetine (DULOXETINE) AdvReac Mild NAUSEA Verified 03/23/25 11:56 zolpidem (From AMBIEN) AdvReac Unknown I FORGOT Verified 03/23/25 11:56 WHO I WAS. Review of Systems Review of Systems ROS Unobtainable: All systems reviewed & are unremarkable except as noted in HPI and below Patient History Medical History History of lung cancer COPD (chronic obstructive pulmonary disease) Surgical History S/P lobectomy of lung Family History Father Heart disease Hypertension Mental health problem COPD (chronic obstructive pulmonary disease) Mother Hypertension Sister Mental health problem COPD (chronic obstructive pulmonary disease) Social History household members: spouse Smoking Status: Never smoker alcohol intake: current Smoking Status: Never smoker alcohol intake frequency: other Exam Narrative Exam Narrative: GEN: well nourished, well appearing male, alert and oriented x 3, patient appears to be in mild distress. HEENT: Atraumatic, pupils are equal round reactive to light, extraocular movements are intact, no nystagmus, nares are clear, TMs are clear, patient has small amount of fluid at the base, no loss of light reflex no erythema, there is no conjunctival pallor. Throat is clear without any exudates, erythema, tonsillar enlargement or uvular deviation, no facial droop HEART: Regular rate and rhythm without murmur, clicks, rubs. Pulses are equal in upper and lower extremities LUNGS:Lungs clear to auscultation, no wheezes, rales, crackles, chest moves symmetrically ABD:bowel sounds normal, soft, non-tender, no guarding, rebound, rigidity, no masses noted, no hepatosplenomegaly :No CVA tenderness MSCL: Non-tender, no muscle atrophy, muscles strength 5/5 upper and lower extremities, full range of motion, normal gait NEURO:CN 2-12 intact, sensation normal, finger nose finger test normal, heel daigle test normal. Initial Vital Signs Initial Vital Signs: Vital Signs Temperature 97.5 F L 08/17/25 08:42 Pulse Rate 58 L 08/17/25 08:42 Respiratory Rate 16 08/17/25 08:42 Blood Pressure 159/82 H 08/17/25 08:42 Pulse Oximetry 100 08/17/25 08:42 Oxygen Delivery Method Room Air 08/17/25 08:42 Scores NIH Stroke Scale Level of Conciousness: Alert, keenly responsive Ask month/age: Answers both questions correctly. Open/close eyes, close hand: Performs both tasks correctly Best gaze horizontal: Normal Visual neri: No visual loss Facial palsy: Normal symetrical movement Left arm drift: No drift for full 10 sec Right arm drift: No drift for full 10 sec Left leg drift: No drift for full 5 sec Right leg drift: No drift for full 5 sec Limb ataxia: Absent Sensory on face/arms/legs: Normal, no sensory loss Best language: No aphasia, normal Dysarthria: Normal Extinction or inattention: No abnormality Total NIH Stroke scale score: 0 Course Orders Ordered: ED Orders 08/17/25 08:49 CBC Auto Diff [Complete Blood Count AUTO DIFF] Stat CMP [Comprehensive Metabolic Panel] Stat Lipase Stat Trop I [Troponin I] Stat 08/17/25 09:25 CT head/brain wo con Stat Chest [XR chest 1V] Stat EKG-12 Lead Stat Discontinued Medications Sodium Chloride (Normal Saline 0.9%) 500 mls @ 1,000 mls/hr IV BOLUS ONE Stop: 08/17/25 09:54 Last Infusion: 08/17/25 10:56 Dose: Infused Documented By: Admin: 08/17/25 09:54 Dose: 1,000 mls/hr Documented By: CALVIN Meclizine HCl (Meclizine Hcl 12.5 Mg Tablet) 50 mg PO NOW ONE Stop: 08/17/25 09:26 Last Admin: 08/17/25 09:54 Dose: 50 mg Documented By: CALVIN Vital Signs Vital signs: Vital Signs - 8 hr 08/17/25 08:42 08/17/25 10:46 Temperature 97.5 F L 97.5 F L Pulse Rate 58 L Respiratory Rate 16 Blood Pressure 159/82 H Pulse Oximetry 100 Oxygen Delivery Method Room Air MDM - Dizziness Lab Data 08/17/25 08:49 08/17/25 08:49 Labs: Lab Results 08/17/25 Range/Units 08:49 WBC 6.3 (4.5-11.0) X10^3/uL RBC 4.37 L (4.5-5.9) X10^6/uL Hgb 14.1 (13.5-17.5) g/dL Hct 42.2 (41-53) % MCV 96.4 (80-100) fL MCH 32.3 (26-34) PG MCHC 33.5 (30-36) % RDW 14.6 (11.6-14.8) % Plt Count 245 (150-400) X10^3/uL Neut % (Auto) 79.3 H (50-75) % Lymph % (Auto) 11.8 L (25-40) % Mer[place] % (Auto) 7.5 (3-14) % Eos % (Auto) 0.6 L (2-4) % Baso % (Auto) 0.8 (0-2) % Neut # (Auto) 5000 (7610-8773) /uL Lymph # (Auto) 700 L (6512-2643) /uL [place] # (Auto) 500 (0-900) /uL Eos # (Auto) 0 (0-450) /uL Baso # (Auto) 0 (0-100) /uL Sodium 135 L (137-145) mmol/L Potassium 4.3 (3.4-5.1) mmol/L Chloride 104 (98-107) mmol/L Carbon Dioxide 25 (22-32) mmol/L BUN 17 (9-20) mg/dL Creatinine 1.04 (0.66-1.25) mg/dL Estimated GFR > 60 (>60) mL/min BUN/Creatinine Ratio 16.3 (6-22) Glucose 123 H (70-99) mg/dL Calcium 8.7 (8.4-10.2) mg/dL Total Bilirubin 0.5 (0.2-1.3) mg/dL AST 31 (17-59) IU/L ALT 23 (<50) IU/L Alkaline Phosphatase 91 (38-126) U/L Troponin I < 0.012 (0.01-0.034) ng/mL Total Protein 7.0 (6.3-8.2) g/dL Albumin 4.1 (3.5-5.0) g/dL Globulin 2.9 (1.7-4.1) g/dL Albumin/Globulin Ratio 1.4 (1.0-2.8) Lipase 75 (23-300) U/L ECG Data Attestation: I personally reviewed and interpreted this ECG as follows: Interpretation: Sinus bradycardia with first-degree AV block rate of 57 CO 254 QRS 88 QTC of [address]-elevation depression noted MDM Narrative Medical decision making narrative: Head CT non-con shows no acute intracranial pathology. Chest x-ray minimal left basilar atelectasis versus scarring. Sinus bradycardia with a first-degree AV block Labs show normal white count, hemoglobin of 14 platelets of 245, sodium is 135 electrolytes are otherwise appropriate BUN creatinine is appropriate, glucose is 123 LFTs are negative troponins less than 0.012 Patient received meclizine and fluids. He is feeling much improved afterwards. Patient ambulated without any issues. 80-year-old male with onset of vertigo this is not his 1st episode woke up with the and rolled to the side of the bed. Has no acute neurologic changes his NIH scale is 0 and he notes some decreased hearing, difficulty with drainage in his ears for the past week. Discussed with the patient feels comfortable with discharge home he has Flonase at home encouraged him to use this with an antihistamine and can take meclizine as needed. Patient notes he also has a ondansetron at home as well. Discussed return precautions all questions answered. Discharge Plan Departure Patient Disposition: Home Clinical Impression: Vertigo Instructions: DI for Vertigo Activity Restrictions/Additional Instructions: Follow up with your physician for recheck, if you are having persistent symptoms you may need to follow up with the ENT contact is included below. Use your Flonase at home you can also take an [id number] antihistamine such as Claritin or Zyrtec once daily to see if this helps your ears drain and improved your symptoms. If needed you can take meclizine 1 tablet every 8 hours as needed. [facility] in [place]. Please return if you have severe headaches, fevers, sudden vision changes, new numbness, tingling or weakness, any difficulty with speech or changes to vision, rapidly worsening symptoms, persistent vomiting, inability to ambulate safely or other new or concerning changes. Prescriptions: New meclizine 25 mg tablet,chewable 25 mg PO QID PRN (Reason: vertigo) Qty: 10 0RF No Action acetaminophen [Tylenol] 325 mg Capsule 1,000 mg PO BID omeprazole 40 mg Capsule,Delayed Release(Dr/Ec) 40 mg PO DAILY dutasteride 0.5 mg capsule 0.5 mg PO DAILY epinephrine [EpiPen] 0.3 mg/0.3 mL Auto-Injector 0.3 mg IM PRN PRN (Reason: Allergic Reaction) Stiolto Respimat 2.5-2.5 mcg/actuation Mist 2 puff inhalation DAILY Cbd Tincture 1 dose miscellaneous DIRECTED albuterol sulfate [Proventil HFA] 90 MCG/PUFF HFA aerosol inhaler 1 puff INH Q4HP PRN (Reason: Shortness Of Breath) fluticasone propionate [Flonase Allergy Relief] 9.9 ML spray,suspension 2 spray Intranasal DAILY PRN (Reason: Allergy Symptoms) tamsulosin 0.4 mg Capsule 0.8 mg PO .qday Referrals: Jordy Cardenas MD [Primary Care Provider, Internal Medicine] Vinod Knight PAD[facility] [[facility]] Stand Alone Forms: Patient Portal/API
--- NOTE | 2025-08-17 09:25 | DI.CT.S_ITS ---
PROCEDURE: CT HEAD/BRAIN WO CON INDICATIONS: vertigo TECHNIQUE: Noncontrast 4.5 mm thick angled axial sections acquired from the foramen magnum to the vertex, with coronal and sagittal reformats. For radiation dose reduction, the following was used: automated exposure control, adjustment of mA and/or kV according to patient size. COMPARISON: None. FINDINGS: Image quality: Diagnostic. CSF spaces: Basal cisterns are patent. No extra-axial fluid collections. The ventricles are symmetric in size and shape. Brain: No intracranial bleeds or mass effect. There is cerebral volume loss, with resultant ventricular and sulcal prominence. There are periventricular and deep white matter chronic small vessel ischemic changes. There is intracranial internal carotid artery atherosclerosis. Skull and face: Calvarium and visualized facial bones appear intact, without suspicious lesions. Sinuses: Visualized sinuses and mastoids are clear. IMPRESSION: No acute intracranial pathology. Dictated by: Jayy Galarza M.D. on 08/17/2025 at 9:45 Approved by: Jayy Galarza M.D. on 08/17/2025 at 9:46
--- NOTE | 2025-08-17 09:25 | DI.RAD.S_ITS ---
PROCEDURE: XR CHEST 1V INDICATIONS: vertigo TECHNIQUE: One view of the chest was acquired. COMPARISON: [facility], CR, XR CHEST 1V, 03/23/2025, 12:42. FINDINGS: Surgical changes and devices: None. Lungs and pleura: Minimal left basilar atelectasis versus scarring. Right lung grossly clear.. No pleural effusions or pneumothorax. Mediastinum: Mediastinal contours appear normal. Heart size is normal. Bones and chest wall: No suspicious bony lesions. Overlying soft tissues appear unremarkable. IMPRESSION: Minimal left basilar atelectasis versus scarring. Dictated by: Jayy Galarza M.D. on 08/17/2025 at 10:18 Approved by: Jayy Galarza M.D. on 08/17/2025 at 10:18
[2025-08-17 09:34] LABS: Add Manual Diff / Slide Review NO; HEMOLYSIS < 15 (0-50); Hematocrit 42.2 % (41-53); Hemoglobin 14.1 g/dL (13.5-17.5); Lymphocytes Absolute Auto 700 /uL (1100-4500); Mean Corpuscular HGB Conc 33.5 % (30-36); Mean Corpuscular Hemoglobin 32.3 PG (26-34); Mean Corpuscular Volume 96.4 fL (80-100); Platelet Count 245 X10^3/uL (150-400)
[2025-08-17 09:39] LABS: Alanine Aminotransferase 23 IU/L (<50); Albumin 4.1 g/dL (3.5-5.0); Albumin Globulin Ratio 1.4 (1.0-2.8); Alkaline Phosphatase 91 U/L (38-126); Blood Urea Nitrogen 17 mg/dL (9-20); Calcium 8.7 mg/dL (8.4-10.2); Carbon Dioxide 25 mmol/L (22-32); Chloride 104 mmol/L (98-107); Estimated Glomerular Filt Rate > 60 mL/min (>60); Globulin 2.9 g/dL (1.7-4.1); Glucose 123 mg/dL (70-99); Lipase 75 U/L (23-300); Potassium 4.3 mmol/L (3.4-5.1); Sodium 135 mmol/L (137-145); Total Protein 7.0 g/dL (6.3-8.2)
[2025-08-17] MEDS: MECLIZINE HCL 12.5 MG TABLET 50 MG PO (09:54)
[2025-08-17] MEDS: SODIUM CHLORIDE 0.9% 500 ML 1000 ML IV (09:54)
--- NOTE | 2025-08-17 09:57 | EKG_ITS ---
[place] [address] [address] [place] [id number] Test Date: 2025-08-17 Pat Name: Uli Silverio Department: [facility] Room: Gender: Male Edi Analyst: RON : 1945 Requested By: Order Number: [id number] Reading MD: Leonel Tang MD Measurements Intervals [place] Rate: 57 P: 27 AR: 254 QRS: -25 QRSD: 88 T: 34 QT: 438 QTc: 426 Interpretive Statements Sinus bradycardia with 1st degree AV block Electronically Signed On 08-29-2025 8:58:05 PST by Leonel Tang MD
[2025-08-17 10:03] LABS: Troponin I < 0.012 ng/mL (0.01-0.034)
[2025-08-17 10:46] VITALS: TEMP 36.4
== END 2025-08-17 12:08 | disposition home or self-care (01) ==
PROVIDERS: Emergency Provider Emergency Medicine; Family Provider Family Medicine; PCP Internal Medicine
DX: R42 Dizziness and giddiness (principal); R11.2 Nausea with vomiting, unspecified; R29.700 NIHSS score 0
CPT/HCPCS: 70450; 71045; 80053; 83690; 84484; 85025; 93005; 93010; 96360; 99284; J7040